=== PATIENT | female | born 1955 | race Caucasian/White ===

== ENCOUNTER → 2016-03-21 | Outpatient (CLI) | payer OTHER ==
[~2016-03-21] MED LIST: AMIT50TA3 PO; ARC10 PO; BUPR-269 PO; CEPH500C PO; CYM30 PO; DICL50TA3 PO; LEVO112T2 PO; LIOT25TA8 PO; METF1000 PO; MISO200T PO
[2016-03-27 14:26] LABS: VITAMIN B6** TC 926 15.1 ng/mL (2.1-21.7)
== END | disposition home or self-care (01) ==
LOC: C.LAB 15:19
PROVIDERS: ATTEND Psychiatry & Neurology Neurology
DX: R41.3 Other amnesia (principal)

== ENCOUNTER 2016-04-30 15:13 | Emergency (ER) | payer OTHER ==
[~2016-04-30] VITALS: Ht 170.2 cm; Wt 96.2 kg
[~2016-04-30 15:13] MED LIST changes: -ARC10 PO; -CEPH500C PO; -CYM30 PO
[2016-04-30 15:21] VITALS: TEMP 37.1; Ht 170.2 cm; Wt 96.2 kg
[2016-04-30] MEDS ORDERED: CYM30 PO (16:08)
[2016-04-30 17:05] VITALS: BP 122/88; PULSE 86; O2SAT 91
--- NOTE | 2016-05-01 01:15 | EMERGENCY ROOM VISIT NOTE ---
ED Visit Note First contact with patient: 15:59 Chief Complaint: Sore throat. History of Present Illness: Ms. Mobley is a 61-year-old white female who ambulates into the ED complaining of a sore throat. Patient reports an acute onset of throat pain that started 6 days ago. Since that time her pain has been constant and slowly increasing in intensity. She describes her pain as a combination of achy and sharp with swallowing. She rates her discomfort 8/10. Her pain is nonradiating. Her pain worsens with swallowing. She has not identified any alleviating factors related to the pain. She has not taken any medications for pain prior to arrival at the hospital. Associated with her pain she does report that she has been having low -grade fevers and bilateral ear pain. She does report that she has had 2 recent concussions and has been having some dizziness but that has not increased since her throat pain started. She denies skin eruptions, skin color changes, headache, hearing changes, vision changes, difficulty speaking, difficulty swallowing, inability to swallow , drooling, painful talking, neck pain/stiffness, cough, shortness of breath, decreased appetite, abdominal pain, nausea, vomiting. Review of Systems: As noted above in history of present illness. 8 body systems were reviewed and found to be negative as noted above. Past Medical History: (1) bowel obstruction described as a hernia into her uterus (2) Depression (3) Hypothyroidism (4) Kidney stone (5) partial left knee replacement (6) TIA (transient ischemic attack) Current Medications: Medications Dose Route/Sig Max Daily Dose Days Date Category Dose Instructions Duloxetine HCl 30 Mg Cap 30 Mg PO QAM 04/30/16 Reported Amitriptyline Hcl 50 Mg Tab 50 Mg PO HS PRN 11/22/15 Reported Cytomel (Liothyronine Sodium) 25 Mcg Tab 0.5 Tab PO HS 11/22/15 Reported Cytomel (Liothyronine Sodium) 25 Mcg Tab 1 Tab PO QAM 11/22/15 Reported Cytotec (Misoprostol) 200 Mcg Tab 200 Mcg PO TID 11/22/15 Reported WITH DICLOFENAC Voltaren (Diclofenac Sodium) 50 Mg Tabec 50 Mg PO TID 11/22/15 Reported WITH MISOPROSTOL Synthroid (Levothyroxine Sodium) 112 Mcg Tab 1 Tab PO QAM 02/01/15 Reported Bupropion Hcl Sr (Bupropion HCl) 200 Mg Tab 200 Mg PO BID 07/19/12 Reported Glucophage (Metformin Hcl) 1,000 Mg Tab 1,000 Mg PO BID 07/19/12 Reported Allergies to Medications: Doxycycline, amantadine. Social History: Patient is currently retired; she lives with her and feels safe in her home environment; she denies tobacco use and admits to alcohol use. Physical Examination: Vital Signs: Date Time Temp Pulse Resp B/P Pulse Ox O2 Delivery O2 Flow Rate FiO2 04/30/16 17:05 86 16 122/88 91 04/30/16 16:53 86 16 122/88 91 04/30/16 15:21 37.1 94 20 125/84 92 Room Air GENERAL: 61-year-old female in mild distress due to pain, nontoxic-appearing, afebrile and hemodynamically stable. NEUROLOGICAL: Awake, alert and oriented to person, place and time. Answering questions appropriately and following commands. Normal gait. Good hand eye coordination. SKIN: Warm, dry and pink. No soft tissue eruptions or trauma noted. HEENT: Atraumatic and normocephalic. No tenderness or erythema over the frontal or maxillary sinuses. No external ear pain. Auditory canals are pink and patent. Tympanic membranes were pearly wells with normal light reflex. No tenderness or swelling over the mastoid processes. PERRLA. Sclera white and conjunctiva pink without drainage. No drainage from naris without congestion. Oral cavity moist and pink. Airway patent. Uvula midline and no abscesses are seen. Pharynx is moderately erythematous and mildly edematous. No tonsillar hypertrophy or exudates. Speech normal. No cervical lymphadenopathy. Trachea midline. No jugular venous distention. No laryngeal tenderness. BACK: No tenderness over the bony cervical spine. No nuchal rigidity or meningismus. ED Course: Patient is assessed as noted above. Rapid Strep Screen: Negative. Culture pending. Patient was offered pain medications and refused. Patient was educated about tonight's findings and instructed on her treatment plan; she verbalizes understanding and agreement with this plan. Clinical Impression: Acute pharyngitis. Disposition: Patient discharged home in stable condition; prior to departure she was reassessed and subjectively reported she was feeling better and rated her discomfort 4/10. Plan: Patient was encouraged to alternate ibuprofen and acetaminophen as needed for pain and use salt water gargles 4-5 times a day. Patient was encouraged to stay well-hydrated with increased clear fluids. Patient was encouraged to follow-up with family physician for recheck if no better in 4-5 days. Patient was encouraged return ED for worsening pain, worsening fevers, inability to swallow, painful talking, drooling or any new/concerning symptoms.
== END 2016-04-30 17:01 | disposition home or self-care (01) ==
LOC: C.EDB 15:14 → C.EDD 17:01
DX: J02.9 Acute pharyngitis, unspecified (principal); F32.9 Major depressive disorder, single episode, unspecified; E03.9 Hypothyroidism, unspecified; Z86.73 Personal history of transient ischemic attack (TIA), and cerebral infarction without residual deficits

== ENCOUNTER 2016-05-16 12:23 | Emergency (ER) | payer OTHER ==
[~2016-05-16] VITALS: Ht 172.7 cm; Wt 97.3 kg
[~2016-05-16 12:23] MED LIST changes: -CEPH500C PO
[2016-05-16 12:36] VITALS: BP 153/79; PULSE 86; TEMP 37.4; Ht 172.7 cm; Wt 97.3 kg
[2016-05-16 12:39] VITALS: O2SAT 94
--- NOTE | 2016-05-16 13:03 | EMERGENCY ROOM VISIT NOTE ---
History First contact with patient: 12:47 Chief Complaint: SORETHROAT Stated Complaint: PAIN IN BACK OF MOUTH History of Present Illness The patient is a 61 year old female who presents to the Emergency Room with complaints of pain at the base of the left side of the tongue. She states she noticed some burning in the back of the throat which is not atypical for her. She states that it got worse this morning. She states she has pain at the back of the left lower molar. She states the pain radiates to the jaw and up to the ear. She rates her discomfort a 4/10. She denies any fevers or chills. She denies any discharge. She denies any difficulty breathing. She denies any swelling. She denies any history of similar. Review of Systems A 10 system review of systems was completed with positives and pertinent negatives listed in the HPI. Past Medical/Surgical History Medical Problems: (1) bowel obstruction described as a hernia into her uterus (2) Depression (3) Hypothyroidism (4) Kidney stone (5) partial left knee replacement (6) TIA (transient ischemic attack) Family History No pertinent family history Social History Smoking Status: Former Smoker Alcohol Use: occasionally Marital Status: Housing Status: lives with significant other Occupation Status: employed Current/Historical Medications Scheduled Bupropion Hcl Sr (Bupropion Hcl Sr), 200 MG PO BID Diclofenac (Voltaren), 50 MG PO TID Duloxetine HCl (Duloxetine HCl), 30 MG PO QAM Levothyroxine Sodium (Synthroid), 112 MCG PO QAM Liothyronine Sodium (Cytomel), 25 MCG PO QAM Metformin Hcl (Glucophage), 1,000 MG PO BID Misoprostol (Cytotec), 200 MCG PO TID Scheduled PRN Amitriptyline Hcl (Amitriptyline Hcl), 50 MG PO HS PRN for Sleep Allergies Coded Allergies: Amantadine (Verified Allergy, Unknown, GI UPSET, 05/16/16) Doxycycline (Verified Allergy, Unknown, GI UPSET, 05/16/16) Physical Exam Vital Signs Date Time Temp Pulse Resp B/P Pulse Ox O2 Delivery O2 Flow Rate FiO2 05/16/16 12:39 94 Room Air 05/16/16 12:36 37.4 86 17 153/79 94 Room Air Physical Exam VITALS: Vitals are noted on the nurse's note and reviewed by myself. Vital signs stable. GENERAL: This is a 61-year-old female, in no acute distress, nondiaphoretic, well-developed well-nourished. SKIN: The skin was without rashes, erythema, edema, or bruising. There is no tenting of the skin. Capillary reflex less than 2 seconds. HEAD: Normocephalic atraumatic. EARS: External auditory canals clear, tympanic membranes pearly wells without erythema or effusion bilaterally. EYES: Pupils equal round and reactive to light and accommodation. Conjunctivae without injection, sclerae without icterus. Extraocular movements intact. NOSE: Patent, turbinates without inflammation or discharge. No sinus tenderness. MOUTH: Mucous membranes moist. Tonsils are not enlarged. Pharynx without erythema or exudate. Uvula midline. Airway patent. Tongue does not deviate. There is a dark area noted to the left buccal mucosa which may represent an area of trauma. There is no obvious sialoadenitis or sialolithiasis. She does not have any facial swelling. There is no tenderness to palpation of the teeth. There is a small area of ulceration just posterior to the left lower gum at the most posterior aspect near the base of the tongue. There is no swelling beneath the tongue. NECK: Supple without nuchal rigidity. No lymphadenopathy. No thyromegaly. Cervical spine is nontender. No JVD. HEART: Regular rate and rhythm without murmurs gallops or rubs. LUNGS: Clear to auscultation bilaterally without wheezes, rales or rhonchi. No dullness to percussion. No retractions or accessory muscle use. MUSCULOSKELETAL: No muscle atrophy, erythema, or edema noted. Full range of motion without joint tenderness in all extremities. No tenderness to palpation. Normal gait. Strength 5/5 throughout. NEURO: Patient was alert and oriented to person place and time. No focal neurological deficits. Medical Decision & Procedures ED Course The patient was seen and examined. Previous visits were reviewed. The patient reports pain in the left mandible near the base of the tongue. She does not have any swelling. There is no obvious abscess. There is no drainage. There is no swelling beneath the tongue. There is a small dark area to the cheek that may be from biting her cheek. There is a small ulcerated area at the base of the tongue. I do not see any obvious infectious process. She does not have any swelling beneath the tongue to suggest Jas's angina. She does not appear to have an ear infection. Sialadenitis or sialolithiasis are considered. The patient does not have any swelling or significant pain. I offered to try antibiotics in the event that this could represent early dental infection. The patient declines. She declined pain medication. The patient seemed fairly anxious. She repeatedly stated that she would just start drinking alcohol again. I recommended against treating symptoms with alcohol. She should return to the ER if any worsening symptoms. Medical Decision The differential diagnosis includes sialolithiasis, sialadenitis, dental infection, dental abscess, viral infection, trauma, among others Impression Primary Impression: Mouth pain Departure Information Dispostion Home / Self-Care Condition GOOD Referrals Yusef Land III, CRNP (PCP) Patient Instructions My [facility] Additional Instructions Try eating sour items such as lemon drops in the event that you are developing a blocked saliva duct Tylenol or ibuprofen according to package instructions for discomfort Return with any swelling, fevers, drainage, rash or change in symptoms Otherwise, follow up with your family doctor next week
== END 2016-05-16 13:05 | disposition home or self-care (01) ==
LOC: C.EDB 12:27 → C.EDD 13:05
DX: K13.79 Other lesions of oral mucosa (principal); E03.9 Hypothyroidism, unspecified; Z86.73 Personal history of transient ischemic attack (TIA), and cerebral infarction without residual deficits; Z96.652 Presence of left artificial knee joint

== ENCOUNTER → 2016-05-16 | Outpatient (CLI) | payer OTHER ==
[~2016-05-16] MED LIST changes: +CEPH500C PO; +CYM30 PO
[2016-05-16 13:20] LABS: CHOLESTEROL/HDL RATIO 3.9
[2016-05-16 13:26] LABS: THYROID STIMULATING HORMONE 0.057 uIu/ml (0.300-4.500)
== END | disposition home or self-care (01) ==
LOC: C.LAB 12:07
PROVIDERS: ATTEND Nurse Practitioner Family
DX: E03.9 Hypothyroidism, unspecified (principal); E88.81 Metabolic syndrome and other insulin resistance

== ENCOUNTER → 2016-07-04 | Outpatient (CLI) | payer OTHER ==
[~2016-07-04] MED LIST changes: +ARC10 PO; +CEPH500C PO
[2016-07-04 10:56] LABS: THYROID STIMULATING HORMONE 0.082 uIu/ml (0.300-4.500)
[2016-07-06 13:26] LABS: ALBUMIN 4.4 G/DL (3.8-4.8); GAMMA GLOBULIN 0.6 G/DL (0.8-1.7); IMMUNOFIXATION IGA SERUM 234 MG/DL (81-463); IMMUNOFIXATION IGG SERUM 673 MG/DL (694-1618); IMMUNOFIXATION IGM SERUM 63 MG/DL (48-271); METHYLMALONIC ACID 206 NMOL/L (87-318); MICROSOMAL AB 4 IU/ML (<9)
== END | disposition home or self-care (01) ==
LOC: C.LAB 09:00
PROVIDERS: ATTEND Psychiatry & Neurology Neurology
DX: R20.9 Unspecified disturbances of skin sensation (principal); R41.89 Other symptoms and signs involving cognitive functions and awareness; E03.9 Hypothyroidism, unspecified

== ENCOUNTER → 2016-07-09 | Outpatient (CLI) | payer OTHER ==
--- NOTE | 2016-07-10 10:31 | EEG Procedure Note ---
EEG Procedure Note Date of Service Jul 09, 2016. Start / End Times Start Time: 1:54 PM End Time: 2:14 PM Referring Physician Meka Lema History This is a 61-year-old female with cognitive impairment. EEG for further evaluation of cognitive changes. Home Medication List Scheduled Bupropion Hcl Sr (Bupropion Hcl Sr), 200 MG PO BID Diclofenac (Voltaren), 50 MG PO TID Duloxetine HCl (Duloxetine HCl), 30 MG PO QAM Levothyroxine Sodium (Synthroid), 112 MCG PO QAM Liothyronine Sodium (Cytomel), 25 MCG PO QAM Metformin Hcl (Glucophage), 1,000 MG PO BID Misoprostol (Cytotec), 200 MCG PO TID Scheduled PRN Amitriptyline Hcl (Amitriptyline Hcl), 50 MG PO HS PRN for Sleep Description This is a 21 electrode EEG with a single channel dedicated to limited EKG. The electrodes were placed in accordance with the International 10-20 system. At the start of the recording the patient was in an awake state. Background was well organized and composed of symmetric mixed theta/alpha and beta frequencies. There was occasional generalized intermittent theta slowing. There was a symmetric well-formed moderate amplitude 7-8 Hz posterior dominant rhythm that was reactive to eye opening and closure. Hyperventilation was not done. Intermittent photic stimulation at various frequencies produced no abnormalities. There was no clear state changes or sleep transients. Interpretation This is a abnormal routine EEG secondary to mild background slowing. There was no electrographic seizures or epileptiform discharges. Clinical Correlation This EEG indicates a mild encephalopathy of nonspecific etiology.
== END | disposition home or self-care (01) ==
LOC: C.NEUR 13:20
PROVIDERS: ATTEND Psychiatry & Neurology Neurology
DX: R41.89 Other symptoms and signs involving cognitive functions and awareness (principal); R94.01 Abnormal electroencephalogram [EEG]

== ENCOUNTER → 2016-07-12 | Outpatient (CLI) | payer OTHER ==
[2016-07-12 13:21] LABS: BASO % 0.5 %; BASO ABS # 0.04 K/uL (0-0.2); COMPLETE YES; EOS % 2.5 %; HEMATOCRIT 38.6 % (37-47); IG% 0.5 %; LYMPH % 27.3 %; LYMPH ABS # 2.32 K/uL (1.2-3.4); MEAN CELL VOLUME 83.9 fL (80-100); MEAN CORPUSCULAR HEMOGLOBIN 26.5 pg (25-34); MEAN CORPUSCULAR HGB CONC 31.6 g/dl (32-36); MEAN PLATELET VOLUME 9.7 fL (7.4-10.4); MONO % 10.2 %; PLATELET COUNT 320 K/uL (130-400); WHITE BLOOD COUNT 8.51 K/uL (4.8-10.8)
[2016-07-12 14:10] LABS: AST/SGOT 52 U/L (15-37); BLOOD UREA NITROGEN 15 mg/dl (7-18); BUN/CREATININE RATIO 13.7 (10-20); CALCIUM 9.3 mg/dl (8.5-10.1); CARBON DIOXIDE 26 mmol/L (21-32); CHLORIDE 107 mmol/L (98-107); GLUCOSE 95 mg/dl (70-99); POTASSIUM 4.4 mmol/L (3.5-5.1); SODIUM 139 mmol/L (136-145)
[2016-07-12 14:13] LABS: ALB/GLOB RATIO 1.2 (0.9-2); ALKALINE PHOSPHATASE 88 U/L (45-117); ALT/SGPT 103 U/L (12-78)
[2016-07-12 14:46] LABS: LYME DISEASE AB IGG NEG (NEG)
[2016-07-12 14:51] LABS: LYME DISEASE AB IGM NEG (NEG)
== END | disposition home or self-care (01) ==
LOC: C.LAB1850 12:31
PROVIDERS: ATTEND Nurse Practitioner Family
DX: R41.3 Other amnesia (principal); F99 Mental disorder, not otherwise specified

== ENCOUNTER 2016-09-13 13:59 | Emergency (ER) | payer OTHER ==
[~2016-09-13] VITALS: Ht 165.1 cm; Wt 99.2 kg
[~2016-09-13 13:59] MED LIST changes: -ARC10 PO; -CEPH500C PO
[2016-09-13 14:04] VITALS: TEMP 37; Ht 165.1 cm; Wt 99.2 kg
--- NOTE | 2016-09-13 14:23 | EMERGENCY ROOM VISIT NOTE ---
History First contact with patient: 14:09 Chief Complaint: LEG PAIN,LEG INJURY Stated Complaint: ANKLE HEMATOMA, CALF SWELLING-FROM IMPACT 10/07/16 History of Present Illness The patient is a 61 year old female who presents to the Emergency Room with complaints of right leg pain and swelling. The patient states that 5 days ago she was on a zip line. She states that she did not have her legs up high enough at the end and struck her right anterior lower extremity on the rubber platform. She states that there is an abrasion that bled. She states that she did not have any significant pain at that time. She states that she was able to perform her normal activities. She states that today she noticed bruising in the foot and ankle. She denies any pain or injury to the foot or ankle. She denies any fevers. She rates her discomfort a 4/10. The patient denies any pain in her chest or trouble breathing. She denies any abdominal pain, nausea or vomiting. The patient denies any personal or family history of DVT or PE. The patient did travel back and forth to [place] over the weekend. Review of Systems A 10 system review of systems was completed with positives and pertinent negatives listed in the HPI. Past Medical/Surgical History Medical Problems: (1) bowel obstruction described as a hernia into her uterus (2) Depression (3) Hypothyroidism (4) Kidney stone (5) partial left knee replacement (6) TIA (transient ischemic attack) Family History No pertinent family history Social History Smoking Status: Former Smoker Alcohol Use: occasionally Marital Status: Housing Status: lives with significant other Occupation Status: employed Current/Historical Medications Scheduled Bupropion Hcl Sr (Bupropion Hcl Sr), 200 MG PO BID Cephalexin Monohydrate (Keflex), 500 MG PO TID Diclofenac (Voltaren), 50 MG PO TID Duloxetine HCl (Duloxetine HCl), 30 MG PO QAM Levothyroxine Sodium (Synthroid), 112 MCG PO QAM Liothyronine Sodium (Cytomel), 25 MCG PO QAM Metformin Hcl (Glucophage), 1,000 MG PO BID Misoprostol (Cytotec), 200 MCG PO TID Scheduled PRN Amitriptyline Hcl (Amitriptyline Hcl), 50 MG PO HS PRN for Sleep Allergies Coded Allergies: Amantadine (Verified Allergy, Unknown, GI UPSET, 09/13/16) Doxycycline (Verified Allergy, Unknown, GI UPSET, 09/13/16) Physical Exam Vital Signs Date Time Temp Pulse Resp B/P (MAP) Pulse Ox O2 Delivery O2 Flow Rate FiO2 09/13/16 15:41 76 16 143/93 94 09/13/16 14:04 37.0 89 18 138/86 96 Room Air Physical Exam VITALS: Vitals are noted on the nurse's note and reviewed by myself. Vital signs stable. The patient is afebrile. GENERAL: This is a 61-year-old female, in no acute distress, nondiaphoretic, well-developed well-nourished. SKIN: There is a superficial, healing abrasion to the right anterior lower extremity. There is minimal surrounding erythema and warmth. There is ecchymosis and edema noted over the ankle and foot. There is no lymphangitic streaking. There is no fluctuance. There is no tenting of the skin. Capillary reflex less than 2 seconds. HEAD: Normocephalic atraumatic. EARS: External auditory canals clear, tympanic membranes pearly wells without erythema or effusion bilaterally. EYES: Pupils equal round and reactive to light and accommodation. Conjunctivae without injection, sclerae without icterus. Extraocular movements intact. NOSE: Patent, turbinates without inflammation or discharge. MOUTH: Mucous membranes moist. Tonsils are not enlarged. Pharynx without erythema or exudate. Uvula midline. Airway patent. Tongue does not deviate. NECK: Supple without nuchal rigidity. No lymphadenopathy. No thyromegaly. Cervical spine is nontender. No JVD. HEART: Regular rate and rhythm without murmurs gallops or rubs. LUNGS: Clear to auscultation bilaterally without wheezes, rales or rhonchi. No retractions or accessory muscle use. MUSCULOSKELETAL: There is no tenderness to palpation of the right calf. There are no palpable cords. There is a superficial healing abrasion as above. There is minimal surrounding erythema but no fluctuance and no lymphangitic streaking. There is ecchymosis and edema noted over the ankle and foot. There is no tenderness to palpation of the ankle and foot. There is no pain with movement or tenderness to the knee. The patient has full range of motion of the upper and lower extremities bilaterally. The remaining extremities are unremarkable. NEURO: Patient was alert and oriented to person place and time. No focal neurological deficits. Medical Decision & Procedures ER Provider Diagnostic Interpretation: ULTRASOUND RIGHT LOWER EXTREMITY NONVASCULAR CLINICAL HISTORY: Right leg swelling. Clinical concern for hematoma. COMPARISON STUDY: No priors. FINDINGS: Real-time, grayscale, and color flow sonography of the soft tissues in the anterior distal calf is performed at the indicated site of interest. Mild soft tissue edema is suggested this site. There is no organized fluid collection seen to suggest hematoma as clinically queried. IMPRESSION: Mild soft tissue edema with no organized fluid collection to indicate hematoma as clinically queried. [~ rep ct add3]] Venous Doppler right leg RIGHT VENOUS DOPP LOWER EXT UNILAT CLINICAL HISTORY: right leg pain, swelling Right TECHNIQUE: Venous Doppler COMPARISON STUDY: None FINDINGS: Normal study IMPRESSION: Normal study right leg ] RIGHT TIBIA/FIBULAR 2 VIEWS HISTORY: right leg contusion, pain, swelling Right COMPARISON: None. FINDINGS: There is no fracture or dislocation. Plantar heel spur. Mild subcutaneous edema within the distal lower leg. There is a medial unicondylar knee prosthesis. IMPRESSION: No fractures. ED Course The patient was seen and examined. Previous visits were reviewed. The patient is afebrile. X-rays do not reveal any bony abnormality. Ultrasound was negative for DVT. There is no evidence for fluid collection at the site of hematoma. The patient will be placed on Keflex as there may be a mild cellulitis beginning at the area of abrasion. The patient does have a moderate hematoma that seems to be healing. She does have some bruising and swelling noted in the foot and ankle. I discussed this at length with the patient and advised her that it is common with a deep bruise as gravity is involved and pulls the blood into lower extremity has a heals. She ate knowledge his understanding. She should return to the ER with any worsening symptoms. The case was discussed with Dr. Harper who agrees with the assessment and treatment plan. Medical Decision The differential diagnosis includes fracture, abrasion, cellulitis, DVT, superficial, phlebitis, among others Impression Primary Impression: Hematoma of leg Additional Impression: Cellulitis, leg Departure Information Dispostion Home / Self-Care Condition GOOD Prescriptions Cephalexin Monohydrate (Keflex) 500 Mg Cap 500 MG PO TID for 7 Days, #21 CAP Prov: Haydee Livingston PA-C 09/13/16 Referrals Yusef Land III, CRNP (PCP) Patient Instructions Cellulitis - [facility], ED Hematoma, My [facility] Additional Instructions Keflex as prescribed, until finished to help treat infection Rest, ice and elevation over the next several days Follow up with your family doctor in 5-7 days if no improvement Return with any worsening swelling, chest pain, trouble breathing , fever, worsening redness, or generalized worsening symptoms Problem Qualifiers Primary Impression: Hematoma of leg Encounter type: initial encounter Laterality: right Qualified Codes: S80.11XA - Contusion of right lower leg, initial encounter Additional Impression: Cellulitis, leg Laterality: right Qualified Codes: L03.115 - Cellulitis of right lower limb
--- NOTE | 2016-09-13 14:57 | DIAGNOSTIC IMAGING REPORT ---
RIGHT TIBIA/FIBULAR 2 VIEWS HISTORY: right leg contusion, pain, swelling Right COMPARISON: None. FINDINGS: There is no fracture or dislocation. Plantar heel spur. Mild subcutaneous edema within the distal lower leg. There is a medial unicondylar knee prosthesis. IMPRESSION: No fractures. Electronically signed by: Manuelito Baum M.D. 09/13/2016 2:56 PM Dictated Date/Time: 09/13/2016 2:54 PM
--- NOTE | 2016-09-13 15:06 | DIAGNOSTIC IMAGING REPORT ---
Venous Doppler right leg RIGHT VENOUS DOPP LOWER EXT UNILAT CLINICAL HISTORY: right leg pain, swelling Right TECHNIQUE: Venous Doppler COMPARISON STUDY: None FINDINGS: Normal study IMPRESSION: Normal study right leg Electronically signed by: Mannie Villar M.D. 09/13/2016 3:04 PM Dictated Date/Time: 09/13/2016 3:04 PM
--- NOTE | 2016-09-13 15:13 | DIAGNOSTIC IMAGING REPORT ---
ULTRASOUND RIGHT LOWER EXTREMITY NONVASCULAR CLINICAL HISTORY: Right leg swelling. Clinical concern for hematoma. COMPARISON STUDY: No priors. FINDINGS: Real-time, grayscale, and color flow sonography of the soft tissues in the anterior distal calf is performed at the indicated site of interest. Mild soft tissue edema is suggested this site. There is no organized fluid collection seen to suggest hematoma as clinically queried. IMPRESSION: Mild soft tissue edema with no organized fluid collection to indicate hematoma as clinically queried. Electronically signed by: Juan Carlos Alonzo M.D. 09/13/2016 3:11 PM Dictated Date/Time: 09/13/2016 3:05 PM
[2016-09-13] MEDS ORDERED: CEPH500C PO (15:25)
[2016-09-13 15:41] VITALS: BP 143/93; PULSE 76; O2SAT 94
== END 2016-09-13 15:42 | disposition home or self-care (01) ==
LOC: C.EDB 14:03 → C.EDC 15:42
DX: S80.11XA Contusion of right lower leg, initial encounter (principal); L03.115 Cellulitis of right lower limb; X58.XXXA Exposure to other specified factors, initial encounter; E03.9 Hypothyroidism, unspecified; F32.9 Major depressive disorder, single episode, unspecified; Z87.891 Personal history of nicotine dependence

== ENCOUNTER → 2016-11-28 | Outpatient (CLI) | payer OTHER ==
[~2016-11-28] MED LIST changes: +ARC10 PO
== END | disposition home or self-care (01) ==
LOC: C.PATHSPEC 16:59
PROVIDERS: ATTEND Dermatology
DX: L82.1 Other seborrheic keratosis (principal)

== ENCOUNTER 2016-12-24 14:17 | Emergency (ER) | payer OTHER ==
[~2016-12-24] VITALS: Ht 175.3 cm; Wt 100.7 kg
[~2016-12-24 14:17] MED LIST changes: -ARC10 PO
[2016-12-24 14:21] VITALS: TEMP 37.1; Ht 175.3 cm; Wt 100.7 kg
[2016-12-24 16:16] LABS: BASO % 0.6 %; BASO ABS # 0.05 K/uL (0-0.2); COMPLETE YES; EOS % 2.4 %; HEMATOCRIT 38.6 % (37-47); IG% 0.4 %; LYMPH ABS # 2.72 K/uL (1.2-3.4); MEAN CELL VOLUME 82.1 fL (80-100); MEAN CORPUSCULAR HEMOGLOBIN 25.7 pg (25-34); MEAN CORPUSCULAR HGB CONC 31.3 g/dl (32-36); MEAN PLATELET VOLUME 9.4 fL (7.4-10.4); MONO % 8.4 %; NEUT % 54.2 %; PLATELET COUNT 285 K/uL (130-400); WHITE BLOOD COUNT 7.99 K/uL (4.8-10.8)
--- NOTE | 2016-12-24 16:26 | DIAGNOSTIC IMAGING REPORT ---
R FOOT MIN 3 VIEWS ROUTINE CLINICAL HISTORY: 61 years-old Female presenting with R foot pain and swelling; attn: great toe. TECHNIQUE: Frontal, oblique, and lateral views of the right foot were obtained. COMPARISON: None. FINDINGS: Osteopenia suspected. Minimal degenerative changes noted at the first metatarsophalangeal joint. No acute fracture or malalignment. Accessory navicular noted. Prominent enthesophyte at the origin of the plantar fascia. No radiographic evidence of soft tissue abnormality. IMPRESSION: No acute osseous injury of the right foot. Mild degenerative change at the first MTP. Electronically signed by: Rodriguez Caldwell M.D. 12/24/2016 4:25 PM Dictated Date/Time: 12/24/2016 4:24 PM
[2016-12-24] MEDS ORDERED: ARC10 PO (16:31)
[2016-12-24 16:34] LABS: PROTHROMBIN TIME (PATIENT) 10.7 SECONDS (9.0-12.0)
[2016-12-24 16:36] LABS: BUN/CREATININE RATIO 13.6 (10-20); C-REACTIVE PROTEIN 0.83 mg/dl (0-0.29); CALCIUM 9.7 mg/dl (8.5-10.1); CREATININE 0.8 mg/dl (0.60-1.20); POTASSIUM 4.4 mmol/L (3.5-5.1); URIC ACID 4.9 mg/dl (2.6-7.2)
--- NOTE | 2016-12-24 17:34 | DIAGNOSTIC IMAGING REPORT ---
VENOUS DOPP LOWER EXT UNILAT CLINICAL HISTORY: 61 years-old Female presenting with R lower leg and foot swelling. TECHNIQUE: Real-time grayscale and color and spectral Doppler ultrasound imaging of the veins of the right lower extremity was performed. Compression and augmentation were also utilized. COMPARISON: 09/13/2016.. FINDINGS: Right: Common femoral vein: Patent. Femoral vein: Patent. Greater saphenous vein: Patent. Popliteal vein: Patent. Calf veins: Patent. Other: None. IMPRESSION: No evidence of deep venous thrombosis. Electronically signed by: Rodriguez Caldwell M.D. 12/24/2016 5:33 PM Dictated Date/Time: 12/24/2016 5:32 PM
[2016-12-24 18:17] VITALS: BP 148/97; PULSE 83; O2SAT 96
--- NOTE | 2016-12-25 00:52 | EMERGENCY ROOM VISIT NOTE ---
ED Visit Note First contact with patient: 15:43 Chief Complaint: I've been having swelling of my right great toe and fevers. History of Present Illness: Ms. Mobley is a 61-year-old white female who ambulates into the ED complaining of pain and swelling of the right great toe and low-grade fevers. Historically patient was seen in the emergency department on September 13 after injuring her right lower leg prescription lining. At that time an ultrasound and x-ray was performed and she was found to have a contusion. She was followed up at her affirmative action specialist's office and reports an x-ray of the great toe was performed for continued pain and no fractures were identified. Patient reports she continues tab pain and swelling of the great toe. She reports throughout the day she has noted increasing pain and swelling with her physical activity. After going to bed and waking up in the morning most of this is resolved. She reports initially it was mild but it seems to be getting more intense. Currently she describes her pain as a constant achy sensation at the first MCP joint of the right foot. She currently rates her discomfort 4/10 but does report at times its as bad as 7/10. Intermittently she has radiation distally into the distal phalanx of the great toe and sometimes into the proximal first metacarpal. Ambulation on uneven services and palpation increases her discomfort. Rest decreases her discomfort as well as Aleve. Associated with her discomfort she reports she has been having mild low-grade temperatures this week with eye as being 99.8F. She denies skin eruptions, skin color changes, toe weakness/numbness/tingling. Review of Systems: As noted above in history of present illness. Past Medical History: (1) bowel obstruction described as a hernia into her uterus (2) Depression (3) Hypothyroidism (4) Kidney stone (5) partial left knee replacement (6) TIA (transient ischemic attack) Current Medications: Medications Dose Route/Sig Max Daily Dose Days Date Category Dose Instructions Donepezil HCl 10 Mg Tab 10 Mg PO HS 12/24/16 Reported Duloxetine HCl 30 Mg Cap 30 Mg PO QAM 04/30/16 Reported Amitriptyline Hcl 50 Mg Tab 50 Mg PO HS PRN 11/22/15 Reported Cytomel (Liothyronine Sodium) 25 Mcg Tab 25 Mcg PO QAM 11/22/15 Reported Cytotec (Misoprostol) 200 Mcg Tab 200 Mcg PO TID 11/22/15 Reported WITH DICLOFENAC Voltaren (Diclofenac Sodium) 50 Mg Tabec 50 Mg PO TID 11/22/15 Reported WITH MISOPROSTOL Synthroid (Levothyroxine Sodium) 112 Mcg Tab 112 Mcg PO QAM 02/01/15 Reported Bupropion Hcl Sr (Bupropion HCl) 200 Mg Tab 200 Mg PO BID 07/19/12 Reported Glucophage (Metformin Hcl) 1,000 Mg Tab 1,000 Mg PO BID 07/19/12 Reported Allergies to Medications: Amantadine, Doxycycline. Social History: Patient is unemployed; she was there and feels safe in her home environment; she admits tobacco use and denies alcohol use. Physical Examination: Vital Signs: Date Time Temp Pulse Resp B/P (MAP) Pulse Ox O2 Delivery O2 Flow Rate FiO2 12/24/16 18:17 83 16 148/97 96 12/24/16 16:23 87 16 150/92 97 12/24/16 14:21 37.1 88 20 94 Room Air GENERAL: 61-year-old female in mild distress due to pain, nontoxic-appearing, afebrile and hemodynamically stable. NEUROLOGICAL: Awake, alert and oriented to person, place and time. Answering questions appropriately and following commands. Normal gait. Good hand eye coordination. No focal motor sensory deficits. SKIN: Warm, dry and pink. No soft tissue eruptions or trauma noted. THORAX: Lungs sounds are clear to auscultation and equal bilaterally with symmetrical chest wall. HEART: Regular rate and rhythm. No gallops, rubs or murmurs are appreciated. ABDOMEN: Flat, soft and nontender. Positive bowel sounds in all quadrants. No guarding, rigidity or organomegaly. RIGHT LOWER EXTREMITY: No gross bony deformity. No tenderness in the hip and ankle. Mild tenderness over the first MTP joint and the proximal portion of the distal phalanx of the great toe. There is a very mild amount of erythema over this area but it is not hot and there is no red streaking. There is also a very male mild edema. No calf tenderness or cords although the anterior aspect of the tibia/fibula appears slightly larger than the left. Distal pulses are intact. Capillary refill is brisk. She is able to distinguish light sensations through all dermatomes of the foot. ED Course: Patient is assessed as noted above. Patient's medication list was reviewed. Laboratory Testing: Test 12/24/16 16:02 Range/Units White Blood Count 7.99 4.8-10.8 K/uL Red Blood Count 4.70 4.2-5.4 M/uL Hemoglobin 12.1 12.0-16.0 g/dL Hematocrit 38.6 37-47 % Mean Corpuscular Volume 82.1 80-100 fL Mean Corpuscular Hemoglobin 25.7 25-34 pg Mean Corpuscular Hemoglobin Concent 31.3 32-36 g/dl Platelet Count 285 130-400 K/uL Mean Platelet Volume 9.4 7.4-10.4 fL Neutrophils (%) (Auto) 54.2 % Lymphocytes (%) (Auto) 34.0 % Monocytes (%) (Auto) 8.4 % Eosinophils (%) (Auto) 2.4 % Basophils (%) (Auto) 0.6 % Neutrophils # (Auto) 4.33 1.4-6.5 K/uL Lymphocytes # (Auto) 2.72 1.2-3.4 K/uL Monocytes # (Auto) 0.67 0.11-0.59 K/uL Eosinophils # (Auto) 0.19 0-0.5 K/uL Basophils # (Auto) 0.05 0-0.2 K/uL RDW Standard Deviation 47.7 36.4-46.3 fL RDW Coefficient of Variation 15.9 11.5-14.5 % Immature Granulocyte % (Auto) 0.4 % Immature Granulocyte # (Auto) 0.03 0.00-0.02 K/uL Erythrocyte Sedimentation Rate 16 0-21 mm/hr Prothrombin Time 10.7 9.0-12.0 SECONDS Prothromb Time International Ratio 1.0 0.9-1.1 Activated Partial Thromboplast Time 26.1 21.0-31.0 SECONDS Partial Thromboplastin Ratio 1.0 Sodium Level 139 136-145 mmol/L Potassium Level 4.4 3.5-5.1 mmol/L Chloride Level 106 98-107 mmol/L Carbon Dioxide Level 25 21-32 mmol/L Anion Gap 8.0 3-11 mmol/L Blood Urea Nitrogen 11 7-18 mg/dl Creatinine 0.80 0.60-1.20 mg/dl Est Creatinine Clear Calc Drug Dose 90.9 ml/min Estimated GFR () 90.9 Estimated GFR (Non- 78.5 BUN/Creatinine Ratio 13.6 10-20 Random Glucose 104 70-99 mg/dl Uric Acid 4.9 2.6-7.2 mg/dl Calcium Level 9.7 8.5-10.1 mg/dl C-Reactive Protein 0.83 0-0.29 mg/dl Right Foot X-Rays: Were read by myself and the radiologist and shows no acute fractures or dislocations. Radiologist notes mild degenerative changes at the first MTP joint. Right Lower Extremity Venous Doppler Ultrasound: Was reviewed by myself and read by the radiologist showing no evidence of deep vein thrombus. Patient was offered pain medications and refused. Patient was reassessed multiple times during her stay in the emergency department. Patient's case was reviewed with Dr. Loredo; we agreed on diagnostic approach, treatment, disposition and plan. Patient was given a postop shoe; she was offered crutches and/or walker and reported she had these at home. Patient was educated about today's findings and instructed on her treatment plan ; she verbalizes understanding and agreement with this plan. Clinical Impression: Right great toe pain. Decision-Making: Initially my differential diagnosis I considered fracture, dislocation, sprain, gout, joint infection, DVT and other causes. Disposition: Patient discharged home in stable condition; prior to departure she was reassessed and subjectively reported she was pain-free. Plan: Patient was encouraged to continue her current medications as prescribed. Patient was encouraged to use one to 2 tablets of Aleve every 12 hours as needed for pain. Patient was encouraged to keep her foot elevated at rest. Patient was encouraged use postop shoe and walker for 3-6 days or until pain free. Patient is encouraged follow-up with affirmative action specialist for definitive care and treatment. Patient was encouraged return ED for worsening/uncontrolled pain, uncontrolled swelling, foot weakness/numbness/tingling or any new/concerning symptoms.
== END 2016-12-24 18:18 | disposition home or self-care (01) ==
LOC: C.EDB 14:18 → C.EDA 18:18
DX: M79.674 Pain in right toe(s) (principal); R60.0 Localized edema; R50.9 Fever, unspecified; F32.9 Major depressive disorder, single episode, unspecified; E03.9 Hypothyroidism, unspecified; F17.200 Nicotine dependence, unspecified, uncomplicated; Z96.652 Presence of left artificial knee joint; Z87.442 Personal history of urinary calculi; Z86.73 Personal history of transient ischemic attack (TIA), and cerebral infarction without residual deficits

== ENCOUNTER → 2017-03-22 | Outpatient (CLI) | payer OTHER ==
[~2017-03-22] MED LIST changes: +ARC10 PO
[2017-03-22 13:14] LABS: BASO % 0.5 %; BASO ABS # 0.04 K/uL (0-0.2); EOS % 2.5 %; HEMATOCRIT 39.5 % (37-47); HEMOGLOBIN 12.5 g/dL (12.0-16.0); IG# 0.03 K/uL (0.00-0.02); LYMPH % 31.7 %; LYMPH ABS # 2.55 K/uL (1.2-3.4); MEAN CELL VOLUME 83.3 fL (80-100); MEAN CORPUSCULAR HEMOGLOBIN 26.4 pg (25-34); MEAN CORPUSCULAR HGB CONC 31.6 g/dl (32-36); MEAN PLATELET VOLUME 10.2 fL (7.4-10.4); MONO ABS # 0.72 K/uL (0.11-0.59); NEUT % 55.9 %; PLATELET COUNT 277 K/uL (130-400); RED CELL DISTRIBUTION WIDTH SD 48.8 fL (36.4-46.3); WHITE BLOOD COUNT 8.04 K/uL (4.8-10.8)
[2017-03-22 16:46] LABS: BLOOD UREA NITROGEN 11 mg/dl (7-18); CALCIUM 8.9 mg/dl (8.5-10.1); CARBON DIOXIDE 27 mmol/L (21-32); CREATININE 0.86 mg/dl (0.60-1.20); GLUCOSE 121 mg/dl (70-99); SODIUM 135 mmol/L (136-145)
[2017-03-22 16:58] LABS: ALKALINE PHOSPHATASE 71 U/L (45-117); ALT/SGPT 140 U/L (12-78); AST/SGOT 86 U/L (15-37); CHOLESTEROL 200 mg/dl (0-200); LDL CHOLESTEROL CALCULATED 120 mg/dl; TOTAL PROTEIN 7.6 gm/dl (6.4-8.2)
== END | disposition home or self-care (01) ==
LOC: C.LAB 11:58
PROVIDERS: ATTEND Nurse Practitioner Family
DX: E03.9 Hypothyroidism, unspecified (principal); E88.81 Metabolic syndrome and other insulin resistance; M51.36 Other intervertebral disc degeneration, lumbar region; M48.07 Spinal stenosis, lumbosacral region; M21.372 Foot drop, left foot; R41.3 Other amnesia; F99 Mental disorder, not otherwise specified

== ENCOUNTER → 2017-04-29 | Outpatient (CLI) | payer OTHER | END | disposition home or self-care (01) | LOC: C.PATHSPEC 16:38 | PROVIDERS: ATTEND Dermatology | DX: L82.1 Other seborrheic keratosis (principal) ==

== ENCOUNTER → 2017-06-07 | Outpatient (CLI) | payer OTHER ==
[2017-06-07 17:51] LABS: BASO % 0.6 %; BASO ABS # 0.08 K/uL (0-0.2); EOS % 21.1 %; HEMATOCRIT 38.2 % (37-47); HEMOGLOBIN 12.3 g/dL (12.0-16.0); LYMPH ABS # 3.97 K/uL (1.2-3.4); MEAN CELL VOLUME 82.2 fL (80-100); MEAN CORPUSCULAR HEMOGLOBIN 26.5 pg (25-34); MEAN CORPUSCULAR HGB CONC 32.2 g/dl (32-36); MEAN PLATELET VOLUME 9.5 fL (7.4-10.4); MONO % 7.8 %; NEUT % 38.7 %; NEUT ABS # 4.94 K/uL (1.4-6.5); PLATELET COUNT 327 K/uL (130-400); RED CELL DISTRIBUTION WIDTH CV 16.4 % (11.5-14.5); RED CELL DISTRIBUTION WIDTH SD 49.5 fL (36.4-46.3); WHITE BLOOD COUNT 12.79 K/uL (4.8-10.8)
[2017-06-07 18:14] LABS: ALBUMIN 3.8 gm/dl (3.4-5.0); ALT/SGPT 96 U/L (12-78); AST/SGOT 74 U/L (15-37); BLOOD UREA NITROGEN 12 mg/dl (7-18); CARBON DIOXIDE 24 mmol/L (21-32); CREATININE 0.94 mg/dl (0.60-1.20); GLUCOSE 76 mg/dl (70-99); POTASSIUM 4.3 mmol/L (3.5-5.1); SODIUM 137 mmol/L (136-145)
[2017-06-07 18:24] LABS: ALKALINE PHOSPHATASE 79 U/L (45-117); TOTAL PROTEIN 7.5 gm/dl (6.4-8.2)
== END | disposition home or self-care (01) ==
LOC: C.LAB 17:07
PROVIDERS: ATTEND Nurse Practitioner Family
DX: K52.9 Noninfective gastroenteritis and colitis, unspecified (principal)

== ENCOUNTER → 2017-06-17 | Outpatient (CLI) | payer OTHER ==
--- NOTE | 2017-06-17 15:38 | DIAGNOSTIC IMAGING REPORT ---
ABDOMEN 2VIEW W/PA CHEST RTN CLINICAL HISTORY: 62 years-old Female presenting with R10.9 Abdominal painZ87.19 History of small bowel [id number]. TECHNIQUE: PA view of the chest and supine and upright views of the abdomen were obtained. COMPARISON: Chest x-ray from 08/27/2015 and abdominal x-ray from 12/19/2008.. FINDINGS: Atherosclerosis of the aortic arch. Cardiac silhouette normal in size. Lungs and pleural spaces clear. Nonobstructive bowel gas pattern. Paucity of small bowel gas, nonspecific. Moderate stool burden. No gross pneumoperitoneum. Allowing for bowel gas and stool, faint punctate calcification projects over the lower pole of the right kidney. Multiple pelvic phleboliths. Degenerative changes of L5-S1. IMPRESSION: 1. No acute cardiopulmonary disease. 2. No evidence of bowel obstruction or gross pneumoperitoneum. 3. Possible punctate right renal calculus. Electronically signed by: Rodriguez Caldwell M.D. 06/17/2017 3:37 PM Dictated Date/Time: 06/17/2017 3:34 PM
== END | disposition home or self-care (01) ==
LOC: C.RAD1850 15:03
PROVIDERS: ATTEND Physician Assistant
DX: R19.8 Other specified symptoms and signs involving the digestive system and abdomen (principal); R10.9 Unspecified abdominal pain; Z87.19 Personal history of other diseases of the digestive system

== ENCOUNTER 2018-08-17 15:12 | Observation (INO) ==
[2018-08-17 16:13] LABS: Basophils # (auto) 0.04 K/uL (0-0.2); Basophils % (auto) 0.5 %; Eosinophils # (auto) 0.25 K/uL (0-0.5); Eosinophils % (auto) 3.3 %; Hematocrit (blood only) 42.6 % (37-47); Hemoglobin 14.1 g/dL (12.0-16.0); Immature Granulocytes # (auto) 0.02 K/uL (0.00-0.02); Immature Granulocytes % (auto) 0.3 %; Lymphocytes # (auto) 2.45 K/uL (1.2-3.4); Mean Corpuscular Hgb Conc 33.1 g/dL (32-36); Mean Corpuscular Volume 86.1 fL (80-100); Mean Platelet Volume 9.8 fL (7.4-10.4); Monocytes % (auto) 14.4 %; Neutrophils % (auto) 49.5 %; Platelet Count 250 K/uL (130-400); RDW Coefficient of Variation 15.2 % (11.5-14.5); RDW Standard Deviation 47.6 fL (36.4-46.3); Red Blood Count 4.95 M/uL (4.2-5.4); White Blood Count 7.66 K/uL (4.8-10.8)
[2018-08-17 16:26] LABS: Partial Thromboplastin Ratio 0.9; Partial Thromboplastin Time 24.9 Seconds (21.0-31.0); Prothrombin Time 10.4 Seconds (9.0-12.0)
[2018-08-17 16:31] LABS: Alanine Aminotransferase 131 U/L (12-78); Albumin Level 4.3 gm/dl (3.4-5.0); Aspartate Aminotransferase 86 U/L (15-37); BUN Creatinine Ratio 17.9 (10-20); Blood Urea Nitrogen 16 mg/dl (7-18); Carbon Dioxide 26 mmol/L (21-32); Chloride 105 mmol/L (98-107); Creatinine Clr Calc Pharmacy 76.8 ml/min; Est GFR (African American) 78.8; Glucose 84 mg/dl (70-99); Magnesium 2.3 mg/dl (1.8-2.4); Potassium 4.6 mmol/L (3.5-5.1); Sodium 136 mmol/L (136-145)
[2018-08-17 16:36] LABS: Albumin Globulin Ratio 1.3 (0.9-2); Alkaline Phosphatase 61 U/L (45-117); Bilirubin,Total 0.5 mg/dl (0.2-1); Globulin 3.3 gm/dl (2.5-4.0); Total Protein 7.6 gm/dl (6.4-8.2); Troponin I < 0.015 ng/ml (0-0.045)
--- NOTE | 2018-08-17 16:39 | CT Scan Report ---
CT SCAN OF THE BRAIN WITHOUT IV CONTRAST CLINICAL HISTORY: Strokelike symptoms. Headache. COMPARISON STUDY: CT of the brain dated 08/27/2015. TECHNIQUE: Unenhanced axial CT scan of the brain is performed from the vertex to the skull base. A d ose lowering technique was utilized adhering to the principles of ALARA. CT DOSE: 537.48 mGy.cm FINDINGS: Brain parenchyma: The brain parenchyma is normal in appearance. There is no hemorrhage, mass effect, or evidence of acute territorial ischemia by CT criteria. Loco-white matter differentiation is preser sukumar. No extra-axial fluid collection is seen. Ventricles, sulci, cisterns: Normal in configuration. Intracranial vasculature: There is mild atherosclerotic calcification of the cavernous carotid arteri es. Calvarium: Unremarkable. Sinuses and mastoids: The visualized paranasal sinuses are clear. The mastoid air cells are well pneu matized. Orbits: The visualized bony orbits are grossly intact. IMPRESSION: There is no hemorrhage, mass effect, or evidence of acute territorial ischemia by CT diana vargas. Electronically signed by: Juan Carlos Alonzo M.D. 08/17/2018 4:38 PM
--- NOTE | 2018-08-17 17:27 | Emergency Department Note ---
Entered by Holly Marcum acting as a scribe for Kishan Castro History of Present Illness General Chief complaint: Neuro Symptoms/Deficit Stated complaint: STROKE SYMPTOMS Time Seen by Provider: 08/17/18 15:19 Source: patient History of Present Illness Provider complaint: neurological symptoms Onset (ago): hour(s) 6 Location: head Maximum Pain Intensity: 7 Relieved By: + none Exacerbated By: + none Associated symptoms: + headaches, + nausea/vomiting (+nausea, -vomiting) and + other (+left facial droop, +left ear pain, +slurred speech) The patient is a 63 year old female who presents to the Emergency Room with complaints of headache and slurred speech. The patient states that she was referred by her PCP who said that her left eye was unreactive and that she was having left sided facial droop. The patients family states that she was slurring her words. She states that she was having left sided ear pain. The patient state that she has nausea and a headache The patients that her symptoms started at 900 this morning. She reports that she has a history of TIA couple of years ago. She states that she is not currently on blood thinners. Home Medications Home Medications Medication Instructions Recorded Confirmed Type amitriptyline 50 mg PO HS PRN 12/18/17 08/17/18 History bupropion HCl [Wellbutrin SR] 200 mg PO BID 12/18/17 08/17/18 History donepezil [Aricept] 10 mg PO HS 12/18/17 08/17/18 History levothyroxine [Synthroid] 125 mcg PO DAILY 12/18/17 08/17/18 History liothyronine [Cytomel] 25 mcg PO Q OTHER DAY 12/18/17 08/17/18 History metformin [Glucophage] 1,000 mg PO BIDM 12/18/17 08/17/18 History aspirin [Aspir-81] 243 mg PO ONCE 08/17/18 08/17/18 History clobetasol 1 applic TOPICAL DIRECTED 08/17/18 08/17/18 History diclofenac sodium 50 mg PO TID PRN 08/17/18 08/17/18 History empagliflozin [Jardiance] 10 mg PO QAM 08/17/18 08/17/18 History naproxen sodium [Aleve] 220 - 440 mg PO DIRECTED PRN 08/17/18 08/17/18 History omeprazole 40 mg PO DAILYBB 08/17/18 08/17/18 History tramadol 50 - 100 mg PO Q6 PRN MDD MAX 8 08/17/18 08/17/18 History TABS DAILY Allergies Allergy/AdvReac Type Severity Reaction Status Date / Time amantadine Allergy Intermediate GI UPSET Verified 08/17/18 15:38 doxycycline Allergy Intermediate GI UPSET Verified 08/17/18 15:38 Past Med/Surg History Medical History Benign essential tremor (Acute) Confusion and disorientation (Acute) Deterioration of memory (Acute) GERD (gastroesophageal reflux disease) (Acute) Hypertriglyceridemia (Acute) Insomnia (Acute) Left foot drop (Acute) Osteoarthrosis (Acute) Other intervertebral disc degeneration, lumbar region (Acute) Stenosis of lumbosacral spine (Acute) Type 2 diabetes mellitus (Acute) Anxiety Executive function deficit Transaminitis Hypothyroid Exertional chest pain (Acute) Shortness of breath (Acute) Nausea DVT prophylaxis Depression (Chronic) Lumbar spinal stenosis (Chronic) Diabetes (Chronic) Cellulitis, leg (Acute) Concussion (Acute) Encounter for removal of sutures (Acute) Fall (Acute) Headache (Acute) Hematoma of leg (Acute) TIA (transient ischemic attack) Abdominal muscle defects Executive function deficit Pre-diabetes Surgical History H/O resection of small bowel Status post left partial knee replacement Status post right partial knee replacement Family History Other Coronary heart disease Social History Preferred Language: [place] Communication Ability: Effective Beliefs That Will Affect Care: None Current Living Situation: Spouse Feels Safe at Home: Yes Smoking Status: Never smoker Hx Alcohol Use: Yes Alcohol type: beer, wine and hard liquor Hx Substance Use: No Review of Systems See HPI for pertinent positives & negatives. and A total of 10 systems reviewed and were otherwise negative Physical Exam Vital Signs Vital Signs - 24 hr 08/17/18 15:12 08/17/18 17:12 Temperature 37.0 C Temperature Source Oral Sepsis Recent Fever Within 48 Hours No Sepsis Action Taken by Nursing No Action Required Pulse Rate 80 Respiratory Rate 18 18 Respiratory Effort / Characteristics Non-Labored Spontaneous Non-Labored Spontaneous Respiratory Depth Normal Normal Respiratory Pattern Regular Regular Blood Pressure 158/87 H Blood Pressure [Right Arm] 127/73 Blood Pressure Mean 110 Blood Pressure Mean [Right Arm] 91 Blood Pressure Position Sitting Blood Pressure Position [Right Arm] Lying Pulse Oximetry 95 92 Oxygen Delivery Method Room Air Room Air GENERAL: She is oriented to person, place, and time. She appears well-developed and well-nourished. She does not appear distressed. HENT: Exam performed. Head: Normocephalic and atraumatic. Right Ear: External ear normal. No mastoid tenderness. Left Ear: External ear normal. No mastoid tenderness. Mouth/Throat: The oropharynx is clear and moist. No trismus in the jaw. No dental abscesses or uvula swelling. No oropharyngeal exudate or tonsillar abscesses. EYES: Conjunctivae and EOM are normal. Pupils are equal, round, and reactive to light. Right eye exhibits no discharge. Left eye exhibits no discharge. No scleral icterus. NECK: Normal range of motion. Neck supple. No JVD present. No spinous process tenderness present. No carotid bruit present. No rigidity. No tracheal deviation and normal range of motion present. No Brudzinski's sign and no Kernig's sign noted. CV: Normal rate, regular rhythm, normal heart sounds and intact distal pulses. There is no peripheral edema. Palpable radial pulses bue. PULM/CHEST: Effort normal and breath sounds normal. No respiratory distress. No stridor. She has no wheezes. She has no rales. Chest Wall: She exhibits no tenderness. ABD: The abdomen is soft. Bowel sounds are normal. She has no distension. No mass is present. There is no tenderness. There is no rebound, no guarding, no M urphy's sign and no tenderness at McBurney's point. Rovsig negative MUSC/SKEL: Normal range of motion. There is no peripheral edema, tenderness or deformity. LYMPH: No cervical adenopathy. NEURO: NIHSS 1. Mild dysarthria. She is alert and oriented to person, place, and time. She has normal strength. No cranial nerve deficit or sensory deficit. Coordination and gait normal. GCS eye subscore is 4. GCS verbal subscore is 5. GCS motor subscore is 6. cerbellar tests wnl. SKIN: Skin is warm and dry. She is not diaphoretic. PSYCH: She has a normal mood and affect. Her behavior is normal. Judgment and thought content normal. Course 1520: The patient was evaluated in room C11B, and a complete history and physical examination were performed. The patient's symptoms became evident when she woke up at 900 today. She is not a TPA candidate due to the symptoms that started at 900. Since the exact time of onset was unknown, she is out of the TPA window. 1657: The patient's vital signs were stable and her labs were within normal limits. The patient's dysarthria is slightly improving. The patient's symptoms were consistent with TIA. She will evaluated by Dr. White [facility] Hospitalist. Reevaluation(s) Reevaluation #1: Dr. White [facility] Hospitalist Time: 16:57 Medical Decision Making Medical Records Attestation: I reviewed the patient's medical records. Home Medications Current Medication List: was personally reviewed by me Laboratory Data Attestation: I reviewed the patient's lab results. Result diagrams: 08/17/18 15:59 08/17/18 15:59 Lab Results 08/17/18 08/17/18 08/17/18 Range/Units 15:59 15:59 15:59 WBC 7.66 (4.8-10.8) K/uL RBC 4.95 (4.2-5.4) M/uL Hgb 14.1 (12.0-16.0) g/dL Hct 42.6 (37-47) % MCV 86.1 (80-100) fL MCH 28.5 (25-34) pg MCHC 33.1 (32-36) g/dL RDW Std Deviation 47.6 H (36.4-46.3) fL RDW Coeff of Mick 15.2 H (11.5-14.5) % Plt Count 250 (130-400) K/uL MPV 9.8 (7.4-10.4) fL Immature Gran % (Auto) 0.3 % Neut % (Auto) 49.5 % Lymph % (Auto) 32.0 % [place] % (Auto) 14.4 % Eos % (Auto) 3.3 % Baso % (Auto) 0.5 % Immature Gran # (Auto) 0.02 (0.00-0.02) K/uL Neut # (Auto) 3.80 (1.4-6.5) K/uL Lymph # (Auto) 2.45 (1.2-3.4) K/uL [place] # (Auto) 1.10 H (0.11-0.59) K/uL Eos # (Auto) 0.25 (0-0.5) K/uL Baso # (Auto) 0.04 (0-0.2) K/uL PT 10.4 (9.0-12.0) Seconds INR 1.0 (0.9-1.1) APTT 24.9 (21.0-31.0) Seconds PTT Ratio 0.9 Sodium 136 (136-145) mmol/L Potassium 4.6 (3.5-5.1) mmol/L Chloride 105 (98-107) mmol/L Carbon Dioxide 26 (21-32) mmol/L Anion Gap 5.0 (3-11) BUN 16 (7-18) mg/dl Creatinine 0.89 (0.6-1.2) mg/dl Est Cr Clr Drug Dosing 76.8 ml/min Est GFR ( Amer) 78.8 Est GFR (Non-Af Amer) 68.0 BUN/Creatinine Ratio 17.9 (10-20) Glucose 84 (70-99) mg/dl Calcium 9.0 (8.5-10.1) mg/dl Magnesium 2.3 (1.8-2.4) mg/dl Total Bilirubin 0.5 (0.2-1) mg/dl AST 86 H (15-37) U/L ALT 131 H (12-78) U/L Alkaline Phosphatase 61 (45-117) U/L Troponin I < 0.015 (0-0.045) ng/ml Total Protein 7.6 (6.4-8.2) gm/dl Albumin 4.3 (3.4-5.0) gm/dl Globulin 3.3 (2.5-4.0) gm/dl Albumin/Globulin Ratio 1.3 (0.9-2) ECG Data Attestation: I personally reviewed and interpreted this ECG as follows: Indication: other (neurological symptoms) Rate (beats per minute): 73 Rhythm: sinus rhythm Findings: no ST depression and no ST elevation Blood Pressure Blood Pressure Findings: Elevated blood pressure Blood Pressure Disposition: elevated BP felt to be situational [facility] Narrative 1520: The patient was evaluated in room C11B, and a complete history and physical examination were performed. The patient's symptoms became evident when she woke up at 900 today. She is not a TPA candidate due to the symptoms that started at 900. Since the exact time of onset was unknown, she is out of the TPA window. 1657: The patient's vital signs were stable and her labs were within normal limits. The patient's dysarthria is slightly improving. The patient's symptoms were consistent with TIA. She will evaluated by Dr. Teresa- [facility] Hospitalist. Impression & Plan TIA (transient ischemic attack) Discharge Plan Visit Data Chief Complaint: Neuro Symptoms/Deficit Stated Complaint: STROKE SYMPTOMS ED Provider: Kishan Castro Discharge Problem: TIA (transient ischemic attack) Patient Disposition: Being Evaluated by Hospitalist Forms Stand Alone Forms: [facility] Prescriptions Prescriptions: No Action clobetasol 0.05 % Cream 1 applic TOPICAL DIRECTED RF: 0 omeprazole 40 mg Capsule,Delayed Release(Dr/Ec) 40 mg PO DAILYBB RF: 0 tramadol 50 mg Tablet 50 - 100 mg PO Q6 MDD MAX 8 TABS DAILY PRN (Reason: Pain) RF: 0 naproxen sodium [Aleve] 220 mg Tablet 220 - 440 mg PO DIRECTED PRN (Reason: Pain) RF: 0 diclofenac sodium 50 mg Tablet,Delayed Release (Dr/Ec) 50 mg PO TID PRN (Reason: Pain) RF: 0 Jardiance 10 mg Tablet 10 mg PO QAM RF: 0 aspirin [Aspir-81] 81 mg Tablet,Delayed Release (Dr/Ec) 243 mg PO ONCE RF: 0 liothyronine [Cytomel] 25 mcg tablet 25 mcg PO Q OTHER DAY RF: 0 donepezil [Aricept] 10 mg tablet 10 mg PO HS RF: 0 amitriptyline 50 mg tablet 50 mg PO HS PRN (Reason: Sleep) RF: 0 levothyroxine [Synthroid] 125 mcg tablet 125 mcg PO DAILY RF: 0 bupropion HCl [Wellbutrin SR] 200 mg tablet sustained-release 12 hr 200 mg PO BID RF: 0 metformin [Glucophage] 1,000 mg tablet 1,000 mg PO BIDM RF: 0 Referrals Referrals: Yusef Land III, [place] [Primary Care Provider] - The scribe's documentation has been prepared under my direction and personally reviewed by me in its entirety. I confirm that the note above accurately reflects all work, treatment, procedures, and medical decision making performed by me.
--- NOTE | 2018-08-17 17:56 | History & Physical Report ---
Date of Service August 17, 2018 Assessment & Plan (1) TIA (transient ischemic attack): Symptoms are nearly resolved. The slurred speech has resolved and the left facial droop is no longer noticeable. This was seen by the patient herself and the physician at the urgent care center. Her left pupil remains slightly sluggish and she does notice some difficulty with focusing. Otherwise no jane pheral motor deficits. Observation with telemetry. Neurology consultation. Continue aspirin therapy. Obtain brain MRI and MRA Present on Admission?: Yes (2) Type 2 diabetes mellitus: ADA diet. Continue Jardiance. Hold metformin. Sliding scale coverage Present on Admission?: Yes (3) Hypothyroid: Continue thyroid replacement. Check TSH level Present on Admission?: Yes (4) Dementia: Mild. Treated with Aricept Present on Admission?: Yes (5) DVT prophylaxis: Lovenox subcu History of Present Illness Chief Complaint: Headache, slurred speech, left facial droop Primary Care Provider: Yusef Land III, [employer] DES[employer] 63-year-old female who awoke this morning with a headache and she had mild slurred speech and mild left facial droop. She went to an urgent care center and was evaluated and sent here for evaluation. Her symptoms are resolving and she no longer has a left facial droop or dysarthria. Her left pupil is slightly sluggish and she says she has some blurred vision. She denies any amaurosis f ugax. Head CT scan is unremarkable. She will be treated as a resolving TIA and placed on observation with telemetry. Brain MRI/MRA and neck MRA will be obtained. She has received aspirin therapy. Thyroid status will be checked since she takes thyroid replacement medications. She is stable at the time of my examination. Allergies Allergy/AdvReac Type Severity Reaction Status Date / Time amantadine Allergy Intermediate GI UPSET Verified 08/17/18 15:38 doxycycline Allergy Intermediate GI UPSET Verified 08/17/18 15:38 Home Medications Home Medications Medication Instructions Recorded Confirmed Type amitriptyline 50 mg PO HS PRN 12/18/17 08/17/18 History bupropion HCl [Wellbutrin SR] 200 mg PO BID 12/18/17 08/17/18 History donepezil [Aricept] 10 mg PO HS 12/18/17 08/17/18 History levothyroxine [Synthroid] 125 mcg PO DAILY 12/18/17 08/17/18 History liothyronine [Cytomel] 25 mcg PO Q OTHER DAY 12/18/17 08/17/18 History metformin [Glucophage] 1,000 mg PO BIDM 12/18/17 08/17/18 History aspirin [Aspir-81] 243 mg PO ONCE 08/17/18 08/17/18 History clobetasol 1 applic TOPICAL DIRECTED 08/17/18 08/17/18 History diclofenac sodium 50 mg PO TID PRN 08/17/18 08/17/18 History empagliflozin [Jardiance] 10 mg PO QAM 08/17/18 08/17/18 History naproxen sodium [Aleve] 220 - 440 mg PO DIRECTED PRN 08/17/18 08/17/18 History omeprazole 40 mg PO DAILYBB 08/17/18 08/17/18 History tramadol 50 - 100 mg PO Q6 PRN MDD MAX 8 08/17/18 08/17/18 History TABS DAILY Past Med/Surg History Medical History Benign essential tremor (Acute) Confusion and disorientation (Acute) Deterioration of memory (Acute) GERD (gastroesophageal reflux disease) (Acute) Hypertriglyceridemia (Acute) Insomnia (Acute) Left foot drop (Acute) Osteoarthrosis (Acute) Other intervertebral disc degeneration, lumbar region (Acute) Stenosis of lumbosacral spine (Acute) Type 2 diabetes mellitus (Acute) Anxiety Executive function deficit Transaminitis Hypothyroid Exertional chest pain (Acute) Shortness of breath (Acute) Nausea DVT prophylaxis Depression (Chronic) Lumbar spinal stenosis (Chronic) Diabetes (Chronic) Cellulitis, leg (Acute) Concussion (Acute) Encounter for removal of sutures (Acute) Fall (Acute) Headache (Acute) Hematoma of leg (Acute) TIA (transient ischemic attack) Abdominal muscle defects Executive function deficit Pre-diabetes Surgical History H/O resection of small bowel Status post left partial knee replacement Status post right partial knee replacement Family History Other Coronary heart disease Social History Preferred Language: Nepali Communication Ability: Effective Beliefs That Will Affect Care: None Current Living Situation: Spouse Feels Safe at Home: Yes Smoking Status: Never smoker Hx Alcohol Use: Yes Alcohol type: beer, wine and hard liquor Hx Substance Use: No Review of Systems Review of Systems: All systems reviewed & are unremarkable except as noted in HPI & below Neurologic: + headache(s) and + abnormal speech Left facial droop resolved Physical Exam Constitutional: WD/WN, vitals as above Eyes: Bilateral pupils are equal but the left eye pupil reflex is slightly sluggish compared to the right. No extraocular muscle abnormalities. ENMT: external ear and nose normal, oropharynx normal Neck: trachea midline, no thyromegaly Respiratory: normal respiratory effort, lungs clear to auscultation Cardiovascular: RRR, no murmur, no edema Gastrointestinal (Abdomen): normal bowel sounds, soft, nontender, no hepatosplenomegaly Musculoskeletal: no cyanosis or clubbing, extremities motor strength 5/5 Skin: no rashes, warm and dry Neurologic: Cranial Nerves: EOM intact bilaterally, normal gag reflex and no nystagmus Gait: no ataxic gait Coordination: normal [id number] test and normal [id number] test Pupils are equal but the left pupil is somewhat sluggish to react to light Results & Data Vital Signs (Past 12 Hours) Vital Signs Temp Pulse Resp BP BP Pulse Ox 08/17/18 17:12 18 127/73 92 08/17/18 15:12 37.0 C 80 18 158/87 H 95 Laboratory Results 08/17/18 15:59 08/17/18 15:59
[2018-08-17] MEDS ORDERED: PHARMACIST DISCHARGE MED REC CONSULT PRN (18:25)
[2018-08-17] MEDS ORDERED: DICLOFENAC SODIUM 25 MG TABDR PO PRN (18:25)
[2018-08-17] MEDS ORDERED: ONDANSETRON INJ 2 MG/ML 2 ML VIAL IV PRN (18:25)
[2018-08-17] MEDS ORDERED: TRAMADOL HCL 50 MG TABLET PO PRN (18:25)
[2018-08-17] MEDS ORDERED: ALUMINUM/MAGNESIUM SUSP 30 ML UDC PO PRN (18:25)
[2018-08-17] MEDS: ACETAMINOPHEN 325 MG TAB PO PRN (18:54)
[2018-08-17] MEDS ORDERED: GADOBUTROL 10ML VIAL IV PRN (19:46)
--- NOTE | 2018-08-17 20:09 | Magnetic Resonance Report ---
MR ANGIOGRAM OF THE BRAIN CLINICAL HISTORY: Transient ischemic attack. COMPARISON STUDY: MR angiogram of the brain dated 11/22/2015. TECHNIQUE: 3-D [id number] MR angiography of the intracranial circulation is performed. 3-D tumble views are created and assessed. IV contrast was not administered for this examination. The Examinati on is modestly degraded by motion artifact. FINDINGS: The red [place] of [place] is developmentally complete. The internal carotid arteries are widely patent bilaterally, as are the anterior and middle cerebral arteries. The vertebrobasilar system and posterior cerebral arteries are widely patent. The vertebral arteries are codominant. There is no ane urysm, high-grade stenosis, or focal vessel cutoff seen throughout the intracranial circulation. The brain parenchyma is normal as visualized. IMPRESSION: Unremarkable MR angiogram of the brain. Electronically signed by: Juan Carlos Alonzo M.D. 08/17/2018 8:08 PM
--- NOTE | 2018-08-17 20:35 | Magnetic Resonance Report ---
MRI OF THE BRAIN WITHOUT IV CONTRAST CLINICAL HISTORY: Transient ischemic attack. COMPARISON STUDY: CT of the brain dated 08/17/2018. MRI of the brain dated 11/22/2015. TECHNIQUE: MRI of the brain was performed utilizing various T1 and T2-weighted sequences in the axial , sagittal, and coronal planes. IV contrast was not administered for this examination. FINDINGS: Brain parenchyma: There is minimal subcortical and periventricular microangiopathic disease. There is no hemorrhage or mass effect. There is no restricted diffusion to suggest acute ischemia. Loco-white matter differentiation is preserved. No extra-axial fluid collection is seen. The cerebellar tonsils are normal in configuration. Ventricles, sulci, and cisterns: Normal in configuration. Pituitary and sella: Unremarkable. Intracranial vasculature: Normal flow voids are maintained at the skull base. Orbits: The bony orbits are grossly intact. Orbital contents are normal in appearance. Sinuses and mastoids: Clear. Calvarium: Unremarkable. Cervical cord: Partially visualized cervical spinal cord is normal in morphology and signal intensity . IMPRESSION: No acute intracranial abnormality. Electronically signed by: Juan Carlos Alonzo M.D. 08/17/2018 8:34 PM
[2018-08-17] MEDS: ENOXAPARIN INJ 40 MG/0.4 ML SYR SQ SCH (20:50)
[2018-08-17] MEDS: BuPROPion SR 100 MG TABCR PO SCH (20:50)
[2018-08-17] MEDS: DONEPEZIL HCL 10 MG TAB PO SCH (20:50)
[2018-08-17] MEDS: INSULIN ASPART 100 UNITS/ML 3 ML PEN SC SCH (20:57)
--- NOTE | 2018-08-17 21:09 | Magnetic Resonance Report ---
MR ANGIOGRAM OF THE NECK COMBO CLINICAL HISTORY: Transient ischemic attack. COMPARISON STUDY: MR angiogram of the neck dated 03/15/2015. TECHNIQUE: Axial 3-D [id number] MR angiography of the neck is performed. Subsequently, following the IV administration of 9.5 cc of Gadavist. Coronal MR angiogram of the neck was performed to corrob orate the findings. 3-D reformats are created and assessed. All measurements were calculated based on NASCET criteria. The examination is modestly degraded by motion artifact. FINDINGS: Visualized portions of the thoracic aorta are normal in caliber. The aortic arch demonstrat es standard 3-vessel anatomy. The subclavian arteries are widely patent bilaterally. The right common carotid artery is widely patent, as are the right internal and external carotid arteries. The left c ommon carotid artery is widely patent, as are the left internal and external carotid arteries. The ve rtebral arteries are widely patent. The vertebral arteries are codominant. The visualized intracrania l vessels at the skull base appear patent. IMPRESSION: Unremarkable MR angiogram of the neck. Electronically signed by: Juan Carlos Alonzo M.D. 08/17/2018 9:07 PM
[2018-08-17] MEDS: AMITRIPTYLINE HCL 50 MG TAB PO PRN (23:51)
[2018-08-18] MEDS ORDERED: LORazepam 0.5 MG TAB PO STA (01:48)
[2018-08-18] MEDS: LEVOTHYROXINE SODIUM 125 MCG TABLET PO SCH (06:01)
[2018-08-18] MEDS: PANTOprazole 40 MG TAB PO SCH (06:01)
[2018-08-18 06:31] LABS: Estimated Average Glucose 128 mg/dl; Hemoglobin A1C 6.1 % (4.5-5.6)
[2018-08-18] MEDS: INSULIN ASPART 100 UNITS/ML 3 ML PEN SC SCH ×4 (07:54→20:45)
[2018-08-18] MEDS: ASPIRIN 81 MG ECTAB PO SCH (07:58)
[2018-08-18] MEDS: BuPROPion SR 100 MG TABCR PO SCH ×2 (07:58→20:44)
[2018-08-18 08:02] LABS: Basophils # (auto) 0.05 K/uL (0-0.2); Basophils % (auto) 0.8 %; Eosinophils # (auto) 0.26 K/uL (0-0.5); Eosinophils % (auto) 4.2 %; Hematocrit (blood only) 41.8 % (37-47); Hemoglobin 13.4 g/dL (12.0-16.0); Immature Granulocytes # (auto) 0.02 K/uL (0.00-0.02); Immature Granulocytes % (auto) 0.3 %; Lymphocytes # (auto) 2.61 K/uL (1.2-3.4); Mean Corpuscular Hgb Conc 32.1 g/dL (32-36); Mean Corpuscular Volume 85.8 fL (80-100); Monocytes # (auto) 0.61 K/uL (0.11-0.59); Monocytes % (auto) 9.8 %; Neutrophils # (auto) 2.66 K/uL (1.4-6.5); Neutrophils % (auto) 42.9 %; Platelet Count 214 K/uL (130-400); RDW Coefficient of Variation 15.1 % (11.5-14.5); RDW Standard Deviation 47.3 fL (36.4-46.3); Red Blood Count 4.87 M/uL (4.2-5.4); White Blood Count 6.21 K/uL (4.8-10.8)
[2018-08-18 08:30] LABS: BUN Creatinine Ratio 17.4 (10-20); Calcium 8.5 mg/dl (8.5-10.1); Creatinine Clr Calc Pharmacy 78.6 ml/min; Est GFR (Non-African American) 69.9; Potassium 4.2 mmol/L (3.5-5.1)
[2018-08-18] MEDS ORDERED: KETOROLAC TROMETHAMINE 15 MG/ML VIAL IV ONE (09:36)
[2018-08-18] MEDS ORDERED: KETOROLAC TROMETHAMINE 15 MG/ML VIAL ONE (09:41)
[2018-08-18] MEDS ORDERED: PERFLUTREN LIPID MICROSPHERE (DEFINITY) IV ONE (09:57)
--- NOTE | 2018-08-18 11:04 | Neurology Consultation ---
Date of Consultation August 18, 2018 Assessment & Plan (1) TIA (transient ischemic attack): Patient had an episode of word-finding difficulty/slurred speech, left facial droop, and blurry vision to the left. The symptoms have resolved but this morning and she is back to baseline neurologically. MRI of the brain did not show a stroke and shows very minimal old small vessel ischemic changes. Overall, this is consistent with a TIA involving the right hemisphere. It was likely very small vessel ischemic related. MR angiography of the head neck is unremarkable showing no obvious vessel anomalies. Echocardiogram is pending although I doubt this was embolic in nature. Risk factors for stroke include elevated blood pressure, mildly elevated glucose, and dyslipidemia. She quit cigarette smoking in 2008. (2) Dementia: Patient has mild cognitive impairment likely started prior to her 2 concussions in 2016. She had some post concussive syndrome issues which have improved. Her memory is probably been stable however there may be a little bit of progression over the last couple of years. She is on donepezil. Patient does have some history of anxiety and depression but there is no evidence of these being significant factors currently. (3) Benign essential tremor: Patient has mild postural and action tremor. This is consistent with a mild essential tremor. There is no signs of Parkinson's disease (no resting tremor, cogwheel rigidity, bradykinesia, or Parkinson's gait). 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 (4) Lumbar spinal stenosis: Patient has a history of lumbar spinal stenosis with left S1 radiculopathy. This gives her mild left foot drop which currently is a intermittent went fatigue. She is not having active spine disease currently. Recommendations: 1. Initiate 81 milligram aspirin tablet daily. 2. Control blood pressure as you are doing keeping mean arterial pressure 95- 100. 3. Control sugaraiming for a hemoglobin A1c of less than 6.0. 4. Consider statin for her elevated lipids. She would technically be a high- dose statin candidate but I think we should start off with a regular dose initially. 5. Echocardiogram results are pending. 6. Increase activity as able. 7. I have no further neurologic testing or treatment recommendations to make at this time. Overall, I spent a total of 90 minutes with this case (with greater than 50 percent of this time [id number] with patient) including review of records, review of MRI films, direct evaluation the patient at bedside, and discussion of the case with the patient at bedside and Dr. Giang at bedside including differential diagnosis and treatment options. History of Present Illness Reason for Consultation: Patient is a 63-year-old, who was asked to see the request of Dr. Teresa, for neurologic consultation regarding stroke versus TIA Requesting Physician: Dr. Teresa Attending Physician: Clive Giang History of Present Illness Patient has a history of hypertension pre diabetes, essential tremor, lumbar spinal stenosis with left S1 radiculopathy and footdrop, anxiety and depression, mild cognitive deficits and history of concussion, and an unusual event 2 years ago that may have been a TIA or seizure. Patient started having some cognitive problems and balance issues sometime in 2014. An MRI of the brain in February of 2015 was unremarkable. She had a concussion in March of 2015 falling and hitting her head and a 2nd one in July of 2015 where she fell into a wall and hit her head. She was having cognitive problems, word-finding problems, and balance problems. She saw Dr. Childers in October of 2015 who noted a left foot drop some very mild cognitive impairment and essential tremor. Neuropsychological testing by Dr. London revealed some scattered nonspecific cognitive issues in various areas consistent with post concussive syndrome accompanied by some anxiety. In April of 2016 she had an episode while out to dinner of word-finding difficulties, eyes rolling up in her head, loss of coordination, which lasted some period of time and then she slept 15 hours after this. The patient went to [facility] neurology, Dr. Meka Lema, in [facility], in June of 2016. She diagnosed mild essential tremor, mild cognitive impairment, and the left foot drop. An EEG apparently was performed but I do not have these results. I assume it was unremarkable. She was supposed to have another EMG but never had this. The patient did well for the next couple of years without much change neurologically. There may be some very mild cognitive progression over time. She feels her balance and tremor is about the same in her left foot drop process same. Typically she does very well unless she is tired. When over exerting or fatigue she will have increased in left foot drop, balance problems, and word- finding difficulties. Her memory gets a little bit worse as well. Her mood has been good and she has no significant issues with anxiety or depression. For the last 2 days she has had some left neck and shoulder discomfort. This is intermittent and there is no pain that radiates down into the left upper extremity. She woke up August 17 feeling fairly reasonable. She had some warm sensation al nate her left neck but perhaps some into her left face and head. She was active in the morning and ended up going to [employer] to eat around 12 30. She developed some left ear pain in increased discomfort in the left face and head. This extended to the left neck. She had little bit of blurry vision in the left eye and decided around 130 to go to [facility] by [facility], thinking she had a left ear infection. The clinician there felt that the patient had a left facial droop, slurred speech, and a nonreactive left pupil. Prior to going to medics pressed the patient did not notice any of this. She arrived to the emergency room at 1512 hours with a temperature 37.0, pulse of 80, respiratory rate 18, blood pressure 158/87, and O2 saturation 95 percent. The emergency room physician felt the patient had very mild dysarthria and perhaps a slight facial droop but no tPA was warranted due to uncertainty as to the time of onset of symptoms. CT scan of the head was unremarkable. CBC and Chem profile were largely unremarkable. Hemoglobin A1c was 6.1. Triglyceride 1 or 183, total cholesterol 183, LDL 105 MR angiography of the head and neck were unremarkable with no significant st enoses or vessel anomalies. MRI of the brain showed very mild old nonspecific small vessel ischemic changes. There were no acute changes or stroke. There was no significant atrophy. I reviewed these films. This morning the patient feels much better. She had episode of chest pressure last night and again this morning. Medication helped EKG was unremarkable. An echocardiogram is pending. She has minimal headache currently and no chest pain. She has no speech problems has no symptoms in her arms or legs. There is no pain. Allergies Allergy/AdvReac Type Severity Reaction Status Date / Time amantadine Allergy Intermediate GI UPSET Verified 08/17/18 15:38 doxycycline Allergy Intermediate GI UPSET Verified 08/17/18 15:38 Home Medications Home Medications Medication Instructions Recorded Confirmed Type amitriptyline 50 mg PO HS PRN 12/18/17 08/17/18 History bupropion HCl [Wellbutrin SR] 200 mg PO BID 12/18/17 08/17/18 History donepezil [Aricept] 10 mg PO HS 12/18/17 08/17/18 History levothyroxine [Synthroid] 125 mcg PO DAILY 12/18/17 08/17/18 History liothyronine [Cytomel] 25 mcg PO Q OTHER DAY 12/18/17 08/17/18 History metformin [Glucophage] 1,000 mg PO BIDM 12/18/17 08/17/18 History aspirin [Aspir-81] 243 mg PO ONCE 08/17/18 08/17/18 History clobetasol 1 applic TOPICAL DIRECTED 08/17/18 08/17/18 History diclofenac sodium 50 mg PO TID PRN 08/17/18 08/17/18 History empagliflozin [Jardiance] 10 mg PO QAM 08/17/18 08/17/18 History naproxen sodium [Aleve] 220 - 440 mg PO DIRECTED PRN 08/17/18 08/17/18 History omeprazole 40 mg PO DAILYBB 08/17/18 08/17/18 History tramadol 50 - 100 mg PO Q6 PRN MDD MAX 8 08/17/18 08/17/18 History TABS DAILY Patient History Medical History DVT prophylaxis Dementia (Chronic) TIA (transient ischemic attack) (Acute) Benign essential tremor (Acute) Confusion and disorientation (Acute) Deterioration of memory (Acute) GERD (gastroesophageal reflux disease) (Acute) Hypertriglyceridemia (Acute) Insomnia (Acute) Left foot drop (Acute) Osteoarthrosis (Acute) Other intervertebral disc degeneration, lumbar region (Acute) Stenosis of lumbosacral spine (Acute) Type 2 diabetes mellitus (Chronic) Anxiety Executive function deficit Transaminitis Hypothyroid (Chronic) Exertional chest pain (Acute) Shortness of breath (Acute) Nausea DVT prophylaxis Depression (Chronic) Lumbar spinal stenosis (Chronic) Diabetes (Chronic) Cellulitis, leg (Acute) Concussion (Acute) Encounter for removal of sutures (Acute) Fall (Acute) Headache (Acute) Hematoma of leg (Acute) TIA (transient ischemic attack) Abdominal muscle defects Executive function deficit Pre-diabetes Surgical History H/O resection of small bowel Status post left partial knee replacement Status post right partial knee replacement Family History Mother Coronary heart disease Father , age 49 of brain cancer Brain cancer Social History Preferred Language: [place] Communication Ability: Effective Beliefs That Will Affect Care: None Current Living Situation: Spouse current occupational status: retired current occupation: Retired 2015 from [employer] Other Information That Helps Us Care for You: No 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 Feels Safe at Home: Yes Safety Concerns: Feels Safe At This Time Smoking Status: Former smoker Smoking End Date: 2008 Hx Alcohol Use: Yes Alcohol type: beer and wine Alcohol Intake Frequency Comment: 3-4 glasses of wine per week. Hx Substance Use: No Review of Systems Constitutional: + fatigue; no fever, no body aches and no weakness Eyes: no diplopia, no eye pain and no worsening vision Ear, Nose, Mouth, Throat: no ear pain, no tinnitus, no hearing loss and no dysphagia Respiratory: no cough and no dyspnea Cardiovascular: no chest pain, no dyspnea and no palpitations Gastrointestinal: no abdominal pain, no nausea and no vomiting Genitourinary: no dysuria, no urinary frequency and no urinary incontinence Musculoskeletal: no back pain, no neck pain, no radicular pain, no myalgia, no muscle weakness and no muscle atrophy Integumentary: no rash and no lesions Neurologic: + unsteadiness and + tremor(s); no gait abnormality, no falls, no localized weakness, no generalized weakness, no tingling, no numbness, no abnormal movements, no dizziness, no headache(s), no abnormal speech, no behavioral changes, no confusion and no memory loss Psychiatric: no depression, no abnormal sleep pattern, no anxiety, no difficulty concentrating, no confusion and no hallucinations Endocrine: no fatigue and no flushing Hematologic / Lymphatic: no easy bleeding and no easy bruising Allergy / Immunological: no urticaria Physical Exam Physical Exam: The patient is left-handed. The patient is awake, alert, and attentive. Speech is normal without any aphasia or dysarthria. Mentation and thought processes are intact, with full orientation and normal fund of knowledge. Attention and concentration are normal. Mood and affect are normal and appropriate. General appearance and grooming are normal. Short and long-term memory are reasonable for conversation. The discs are sharp with positive venous pulsations bilaterally. There are no exudates, hemorrhages, or blood vessel changes seen. Pupils are 3 mm bilaterally and reactive to light left eye reacts more sluggishly than the right upper. Extraocular eye muscles are intact without nystagmus. Visual acuity and visual kohler seem normal grossly to confrontation. There are no deficits to sensation in the face in all 3 distributions of the fifth cranial nerve bilaterally. Corneal reflexes are positive bilaterally. Facial strength and symmetry was normal bilaterally. I see no facial droop. Hearing seems intact grossly to voice and finger rub bilaterally. Palate moves well without asymmetry. There is normal sternocleidomastoid and trapezius (shoulder shrug) strength bilaterally. Tongue is midline with good strength bilaterally. Neck has a full range of motion without discomfort. There are no cervical bruits bilaterally. There are no cranial or ocular bruits. Heart is without murmur. There is a regular rhythm and rate. Cervical, thoracic, and lumbar spine are nontender to palpation. Gait is narrow based, with good arm swing, turns, and stance. Balance is normal eyes open and she sways considerably with eyes closed. With outstretched arms there is no drift. There are no resting tremors. There are very mild postural and action tremors bilaterally. There is no ataxia with finger to nose testing. There is good facility in the hands. No other abnormal involuntary movements are noted. Motor strength is 5/5 diffusely in the arms bilaterally including deltoids, biceps, triceps, brachioradialis, wrist flexors and extensors, scaffold erector, and intrinsic hand muscles. Motor strength is 5/5 diffusely in the legs bilaterally including hip flexors, quadriceps, hamstrings, gastrocnemius, tibialis anterior, tibialis posterior, and Peroneii muscles bilaterally. Toe extensors are normal and there is good bulk in the extensor digitorum brevis muscles bilaterally. The limbs have good tone without rigidity or spasticity. There is no atrophy noted in the muscles. Muscle bulk is normal, there is no tenderness to palpation, no myotonia to percussion, and no fasciculations seen. Sensory examination is intact to touch and pin throughout all 4 limbs diffusely. Reflexes are 1/4 in the biceps, triceps, and quadriceps tendons bilaterally. Brachioradialis Achilles tendon reflexes are absent bilaterally. Toes are downgoing with plantar stimulation bilaterally. Peripheral pulses are present and of normal quality distally in all 4 limbs. There is no peripheral edema noted in the limbs. Results & Data Vital Signs (Past 12 Hours) Vital Signs Temp Pulse Resp BP Pulse Ox 08/18/18 09:11 79 20 138/89 95 08/18/18 07:07 36.9 C 71 16 124/86 96 08/18/18 03:01 36.8 C 79 16 116/74 94 08/17/18 23:25 37.5 C 75 18 138/86 95 Diagnostic Findings MRI OF THE BRAIN WITHOUT IV CONTRAST CLINICAL HISTORY: Transient ischemic attack. COMPARISON STUDY: CT of the brain dated 08/17/2018. MRI of the brain dated 11/22/2015. TECHNIQUE: MRI of the brain was performed utilizing various T1 and T2-weighted sequences in the axial, sagittal, and coronal planes. IV contrast was not administered for this examination. FINDINGS: Brain parenchyma: There is minimal subcortical and periventricular microan giopathic disease. There is no hemorrhage or mass effect. There is no restricted diffusion to suggest acute ischemia. Loco-white matter differentiation is preserved. No extra-axial fluid collection is seen. The cerebellar tonsils are normal in configuration. Ventricles, sulci, and cisterns: Normal in configuration. Pituitary and sella: Unremarkable. Intracranial vasculature: Normal flow voids are maintained at the skull base. Orbits: The bony orbits are grossly intact. Orbital contents are normal in appearance. Sinuses and mastoids: Clear. Calvarium: Unremarkable. Cervical cord: Partially visualized cervical spinal cord is normal in morphology and signal intensity. IMPRESSION: No acute intracranial abnormality. Electronically signed by: Juan Carlos Alonzo M.D. 08/17/2018 8:34 PM
[2018-08-18] MEDS ORDERED: OPTIRAY 320 125ml IV PRN (11:23)
--- NOTE | 2018-08-18 11:37 | CT Scan Report ---
CT ANGIOGRAPHY OF THE CHEST, PULMONARY EMBOLUS PROTOCOL CLINICAL HISTORY: recent travel; chest pain; evaluate for PE. COMPARISON STUDY: Chest CT July 19, 2012. Chest radiograph December 18, 2017. TECHNIQUE: Following IV administration of 118 mL of Optiray-320, helical axial images of the chest we re obtained utilizing the pulmonary embolus protocol. Maximal intensity projections and sagittal and coronal reformats were viewed on an independent 3D workstation. IV contrast was administered withou t complication. Automated exposure control was utilized for the study. A dose lowering technique wa s utilized adhering to the principles of ALARA. CT DOSE: 599.22 mGy.cm FINDINGS: No pulmonary emboli are identified. There is no evidence for thoracic aortic dissection. T he size of the heart is at the upper limits of normal. There is no pericardial effusion. Central airw ays are patent. No pneumothorax or pleural effusion is noted. No enlarged axillary, mediastinal or hi lar lymph nodes are present. There is no pneumomediastinum. No consolidation is identified to suggest pneumonia. Groundglass opacity suggest atelectasis. Bony thorax is unremarkable. There is probable f atty infiltration of the liver. IMPRESSION: 1. No pulmonary emboli identified. 2. No acute intrathoracic findings. 3. Probable fatty infiltration of the liver. Electronically signed by: Jayden Rapp M.D. 08/18/2018 11:36 AM
[2018-08-18] MEDS: ATORVASTATIN 20 MG TAB PO SCH (12:18)
[2018-08-18] MEDS: IPRATROPIUM BROMIDE/ALBUTEROL respimat INH INH SCH ×3 (15:18→20:44)
[2018-08-18] MEDS: [UNRECOGNIZED DRUG - OTHER] SCH ×2 (16:46→22:14)
[2018-08-18] MEDS: ENOXAPARIN INJ 40 MG/0.4 ML SYR SQ SCH (18:24)
--- NOTE | 2018-08-18 20:27 | Hospitalist Progress Note ---
Date of Service August 18, 2018 Assessment & Plan (1) TIA (transient ischemic attack): MRI brain neg for stroke. Presenting symptoms resolved and has had no recurrent symptoms. Cause of TIA uncertain. MRA head/neck w/o stenosis or other abnormality. Echo w/o thrombus or shunt. Tele w/o a.fib. Would recommend 30-day event monitor to be complete (r/o PAF). Seen by neuro - asa 81mg daily along with statin advised for secondary prevention. Speech, PT, OT evals completed. Appreciate neurology evaluation. Present on Admission?: Yes (2) Chest pain: Etiology uncertain. Due to recent trip to [place] I ordered CTA chest -- negative for PE. Troponin x 3 negative. EKG normal. Echo w/o WMA. Spoke with Dr Mccartney - no contraindication for stress test. Pt's mother with CAD and stents. Thus - NPO after MN tonight for stress test in AM. Pt agreeable. If stress test is negative - pulmonary? (mild wheeze on exam) anxiety? other? Present on Admission?: No (3) Type 2 diabetes mellitus: ADA diet. adequate control. resume PO meds at discharge (will need repeat Cr before resuming metformin). Present on Admission?: Yes (4) Hypothyroid: Continue thyroid replacement. TSH compensated. Present on Admission?: Yes (5) Dementia: Mild. Treated with Aricept. Seems to be at baseline. Apparently developed this post-concussion x 2. Present on Admission?: Yes (6) Anxiety: Consider dedicated meds - seems quite anxious. Anxiety could be playing a role in some symptoms but this is diagnosis of exclusion. Present on Admission?: Yes (7) Hyperlipidemia: In light of TIA -- start lipitor 20mg qam. Present on Admission?: Yes (8) DVT prophylaxis: Lovenox updated at bedside today stress test in AM if negative then d/c thereafter Subjective multiple visits to pt's room today. early this am pt's nurse called me that she had complained of sternal chest discomfort/tightness. EKG obtained - NSR, no ST changes. telemetry all night with NSR. toradol x 1 given with improvement of pain from 7/10 down to 3/10. during my assessment she stated that the pain was associated with mild dyspnea and headache. she reports having traveled to [place] by plane in late June and returning to [facility] on July 22. no swollen legs since the trip. has had at least 2 other episodes of chest discomfort since her trip; no pleuritic component; again usually associated with dyspnea and headache. no radiation of pain to arms, neck, jaw, etc. no burping / belching. no nausea. no emesis. no sweats w/ it. admits to considerable anxiety and stressors. also thinks she has had a sinus issue lately. no new neuro symptoms; all presenting neuro symptoms resolved. Review of Systems Constitutional: no fever and no chills Respiratory: as per Subjective / HPI, + cough and + dyspnea; no pain on inspiration and no wheezing Cardiovascular: as per Subjective / HPI and + chest pain; no radiating jaw, neck or arm pain, no orthopnea, no paroxysmal nocturnal dyspnea and no palpitations Gastrointestinal: no abdominal pain, no nausea and no vomiting Physical Exam Constitutional: well developed and well nourished; no acute distress and no altered mental status ENMT: external ear and nose normal, oropharynx normal Respiratory: no respiratory distress Auscultation: + wheezes (hint of - b/l); no diminished lung sounds, no rales and no rhonchi Cardiovascular: RRR, no murmur, no edema Heart Sounds: normal S1 and normal S2 Vessels: posterior tibial pulses present and dorsalis pedis pulses present; no JVD Chest (Breasts): Additional Comments: no reproducible chest wall pain Gastrointestinal (Abdomen): normal bowel sounds, soft, nontender, no hepatosplenomegaly Neurologic: no focal motor deficits Speech / Cognition: normal speech Motor/Sensory: normal movement Gait: no ataxic gait no facial droop Psychiatric: A+Ox3, euthymic affect Results & Data Vital Signs (Past 12 Hours) Vital Signs Temp Pulse Pulse Resp BP Pulse Ox 08/18/18 18:36 36.9 C 81 19 137/80 93 08/18/18 18:01 70 08/18/18 15:26 37.0 C 79 19 129/85 90 08/18/18 11:06 36.7 C 75 18 147/78 H 92 08/18/18 09:11 79 20 138/89 95 Laboratory Results Laboratory Results - last 24 hr 08/17/18 08/17/18 08/17/18 15:20 15:59 16:07 WBC RBC Hgb Hct MCV MCH MCHC RDW Std Deviation RDW Coeff of Mick Plt Count MPV Immature Gran % (Auto) Neut % (Auto) Lymph % (Auto) [place] % (Auto) Eos % (Auto) Baso % (Auto) Immature Gran # (Auto) Neut # (Auto) Lymph # (Auto) [place] # (Auto) Eos # (Auto) Baso # (Auto) Sodium Potassium Chloride Carbon Dioxide Anion Gap BUN Creatinine Est Cr Clr Drug Dosing Est GFR ( Amer) Est GFR (Non-Af Amer) BUN/Creatinine Ratio Glucose POC Glucose 99 Estimat Average Glucose 128 Hemoglobin A1c 6.1 H Calcium Troponin I Triglycerides Cholesterol LDL Cholesterol, Calc VLDL Cholesterol, Calc HDL Cholesterol Cholesterol/HDL Ratio Blood Type A Positive Antibody Screen POSITIVE A Antibody Identification Anti-M 08/17/18 08/18/18 08/18/18 20:46 07:19 07:28 WBC 6.21 RBC 4.87 Hgb 13.4 Hct 41.8 MCV 85.8 MCH 27.5 MCHC 32.1 RDW Std Deviation 47.3 H RDW Coeff of Mick 15.1 H Plt Count 214 MPV 10.0 Immature Gran % (Auto) 0.3 Neut % (Auto) 42.9 Lymph % (Auto) 42.0 [place] % (Auto) 9.8 Eos % (Auto) 4.2 Baso % (Auto) 0.8 Immature Gran # (Auto) 0.02 Neut # (Auto) 2.66 Lymph # (Auto) 2.61 [place] # (Auto) 0.61 H Eos # (Auto) 0.26 Baso # (Auto) 0.05 Sodium Potassium Chloride Carbon Dioxide Anion Gap BUN Creatinine Est Cr Clr Drug Dosing Est GFR ( Amer) Est GFR (Non-Af Amer) BUN/Creatinine Ratio Glucose POC Glucose 111 H 105 H Estimat Average Glucose Hemoglobin A1c Calcium Troponin I Triglycerides Cholesterol LDL Cholesterol, Calc VLDL Cholesterol, Calc HDL Cholesterol Cholesterol/HDL Ratio Blood Type Antibody Screen Antibody Identification 08/18/18 08/18/18 08/18/18 07:28 07:28 11:33 WBC RBC Hgb Hct MCV MCH MCHC RDW Std Deviation RDW Coeff of Mick Plt Count MPV Immature Gran % (Auto) Neut % (Auto) Lymph % (Auto) [place] % (Auto) Eos % (Auto) Baso % (Auto) Immature Gran # (Auto) Neut # (Auto) Lymph # (Auto) [place] # (Auto) Eos # (Auto) Baso # (Auto) Sodium 139 Potassium 4.2 Chloride 106 Carbon Dioxide 26 Anion Gap 7.0 BUN 15 Creatinine 0.87 Est Cr Clr Drug Dosing 78.6 Est GFR ( Amer) 81.0 Est GFR (Non-Af Amer) 69.9 BUN/Creatinine Ratio 17.4 Glucose 102 H POC Glucose 104 H Estimat Average Glucose Hemoglobin A1c Calcium 8.5 Troponin I < 0.015 Triglycerides 183 H Cholesterol 183 LDL Cholesterol, Calc 105 VLDL Cholesterol, Calc 37 HDL Cholesterol 41 Cholesterol/HDL Ratio 5 Blood Type Antibody Screen Antibody Identification 08/18/18 08/18/18 13:38 16:23 WBC RBC Hgb Hct MCV MCH MCHC RDW Std Deviation RDW Coeff of Mick Plt Count MPV Immature Gran % (Auto) Neut % (Auto) Lymph % (Auto) [place] % (Auto) Eos % (Auto) Baso % (Auto) Immature Gran # (Auto) Neut # (Auto) Lymph # (Auto) [place] # (Auto) Eos # (Auto) Baso # (Auto) Sodium Potassium Chloride Carbon Dioxide Anion Gap BUN Creatinine Est Cr Clr Drug Dosing Est GFR ( Amer) Est GFR (Non-Af Amer) BUN/Creatinine Ratio Glucose POC Glucose 130 H Estimat Average Glucose Hemoglobin A1c Calcium Troponin I < 0.015 Triglycerides Cholesterol LDL Cholesterol, Calc VLDL Cholesterol, Calc HDL Cholesterol Cholesterol/HDL Ratio Blood Type Antibody Screen Antibody Identification (1) Type 2 diabetes mellitus Diabetes mellitus penitentiary insulin use: without intermediate project manager use Diabetes mellitus complication status: without complication Qualified Code(s): E11.9 - Type 2 diabetes mellitus without complications (2) Hypothyroid Hypothyroidism type: acquired Qualified Code(s): E03.9 - Hypothyroidism, unspecified (3) Dementia Dementia type: unspecified type Dementia behavioral disturbance: without behavioral disturbance Qualified Code(s): F03.90 - Unspecified dementia without behavioral disturbance (4) Chest pain Chest pain type: unspecified Qualified Code(s): R07.9 - Chest pain, unspecified (5) Hyperlipidemia Hyperlipidemia type: mixed hyperlipidemia Qualified Code(s): E78.2 - Mixed hyperlipidemia
[2018-08-18] MEDS: DONEPEZIL HCL 10 MG TAB PO SCH (20:44)
[2018-08-18] MEDS: AMITRIPTYLINE HCL 50 MG TAB PO PRN (22:14)
[2018-08-18] MEDS: ACETAMINOPHEN 325 MG TAB PO PRN (23:31)
[2018-08-19] MEDS ORDERED: SODIUM CHLORIDE 0.65% NA SOLN 45 ML (OCEAN) ONE (03:37)
[2018-08-19] MEDS: ACETAMINOPHEN 325 MG TAB PO PRN ×2 (03:40→15:40)
[2018-08-19 05:46] LABS: Basophils # (auto) 0.04 K/uL (0-0.2); Basophils % (auto) 0.5 %; Eosinophils # (auto) 0.27 K/uL (0-0.5); Eosinophils % (auto) 3.5 %; Hematocrit (blood only) 41.8 % (37-47); Hemoglobin 13.8 g/dL (12.0-16.0); Immature Granulocytes # (auto) 0.01 K/uL (0.00-0.02); Immature Granulocytes % (auto) 0.1 %; Lymphocytes # (auto) 3.15 K/uL (1.2-3.4); Lymphocytes % (auto) 40.9 %; Mean Corpuscular Volume 86.4 fL (80-100); Monocytes # (auto) 0.83 K/uL (0.11-0.59); Monocytes % (auto) 10.8 %; Neutrophils % (auto) 44.2 %; Platelet Count 216 K/uL (130-400); RDW Coefficient of Variation 15.2 % (11.5-14.5); RDW Standard Deviation 47.9 fL (36.4-46.3); Red Blood Count 4.84 M/uL (4.2-5.4)
[2018-08-19 06:26] LABS: BUN Creatinine Ratio 19.5 (10-20); Calcium 8.6 mg/dl (8.5-10.1); Creatinine Clr Calc Pharmacy 75.2 ml/min; Est GFR (African American) 77.8; Est GFR (Non-African American) 67.1
[2018-08-19] MEDS: PANTOprazole 40 MG TAB PO SCH (06:34)
[2018-08-19] MEDS: LEVOTHYROXINE SODIUM 125 MCG TABLET PO SCH (06:34)
--- NOTE | 2018-08-19 07:54 | Neurology Progress Note ---
Date of Service August 19, 2018 Assessment & Plan (1) TIA (transient ischemic attack): Patient had an episode August 17 of word-finding difficulty/slurred speech, left facial droop, and blurry vision to the left. The symptoms have resolved and she is back to baseline neurologically. MRI of the brain did not show a stroke and shows (only) very minimal old small vessel ischemic changes. Overall, this is consistent with a TIA, involving the right hemisphere. It was likely very small vessel ischemic related. MR angiography of the head neck is unremarkable showing no obvious vessel anomalies. Echocardiogram was unremarkable and showed no change compared to February of 2015. Risk factors for stroke include elevated blood pressure, mildly elevated glucose, and dyslipidemia. She quit cigarette smoking in 2008. (2) Dementia: Patient has mild cognitive impairment, likely starting prior to her 2 concussions in 2016. She had some post concussive syndrome issues which have improved. Her memory is stable, however, there may be a little bit of progression over the last couple of years. She is on donepezil. Patient does have some history of anxiety and depression but there is no evidence of these being significant factors currently. (3) Benign essential tremor: Patient has mild postural and action tremor. This is consistent with a mild essential tremor. There is no signs of Parkinson's disease (no resting tremor, cogwheel rigidity, bradykinesia, or Parkinson's gait). 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 (4) Lumbar spinal stenosis: Patient has a history of lumbar spinal stenosis with left S1 radiculopathy. This gives her mild left foot drop which currently is a intermittent went fatigue. She is not having active spine disease currently. Recommendations: 1. Continue 81 milligram aspirin tablet daily. 2. Control blood pressure as you are doing keeping mean arterial pressure 95- 100. 3. Control glucose aiming for a hemoglobin A1c of less than 6.0. 4. Continue atorvastatin 20 milligrams daily. She would technically be a high- dose statin candidate but I think we should start off with a regular dose initially. 5. Continue donepezil 10 milligrams daily. 6. Increase activity as able. 7. I have no further neurologic testing or treatment recommendations to make at this time, but would be happy to follow this patient as an outpatient if she desires.. Overall, I spent a total of 25 minutes with this case including review of records, direct evaluation the patient at bedside, and discussion of the case with patient at bedside and Dr. Giang, including differential diagnosis and treatment. Subjective This morning, the patient tells me she slept well and has no headache. She has no vision problems, weakness or numbness in the limbs, speech issues, or confusi on. She does have a little bit of chest tightness centrally but there is no chest pain. She is breathing normally. A deep breath does not create pain. Blood pressure is 136/67. CBC this morning was unremarkable. Chem profile showed a glucose of 113 and was unremarkable. Vitamin B12 is pending. Echocardiogram showed minimal concentric LVH with an ejection fraction of 60-65 percent. There was no significant valvular pathology or source of emboli. There is no evidence of an ASD or PFO. There is no change compared to February of 2015. Physical Exam Physical Exam: She is awake and alert. Speech is without aphasia or dysarthria. Mood is normal and affect is appropriate. Thought processes are intact to conversation. Extraocular eye muscles are intact without nystagmus. There is no facial droop. Tongue is midline. With outstretched arms there is no drift. There is no resting tremor. There is minimal postural and action tremor this morning. Strength is symmetrical in limbs. Results & Data Vital Signs (Past 12 Hours) Vital Signs Temp Pulse Resp BP Pulse Ox 08/19/18 07:22 36.5 C 61 16 136/67 94 08/19/18 03:52 36.7 C 79 16 150/91 H 91 08/18/18 23:35 36.4 C L 84 16 154/86 H 95 (1) Dementia Dementia type: unspecified type Dementia behavioral disturbance: without behavioral disturbance Qualified Code(s): F03.90 - Unspecified dementia without behavioral disturbance
[2018-08-19] MEDS: INSULIN ASPART 100 UNITS/ML 3 ML PEN SC SCH ×2 (07:57→13:49)
[2018-08-19] MEDS: ATORVASTATIN 20 MG TAB PO SCH (07:58)
[2018-08-19] MEDS: BuPROPion SR 100 MG TABCR PO SCH (07:58)
[2018-08-19] MEDS: ASPIRIN 81 MG ECTAB PO SCH (07:59)
[2018-08-19] MEDS: IPRATROPIUM BROMIDE/ALBUTEROL respimat INH INH SCH ×3 (08:02→15:44)
[2018-08-19] MEDS ORDERED: LIOTHYRONINE SODIUM 25 MCG TAB PO SCH (09:00)
[2018-08-19] MEDS ORDERED: STROKE PATIENT DISCHARGE STA (14:00)
--- NOTE | 2018-08-19 14:28 | Pharmacy Report ---
Pharmacist Stroke Counseling - Date of Service August 19, 2018 - Scope: Pharmacy has been consulted to provide medication discharge counseling for this patient admitted with [ischemic stroke] [hemorrhagic stroke] [transient ischemic attack] as per the Pharmacist Discharge Counseling for Stroke Patients Protocol . - Medications on Discharge: Home Medications Medication Instructions Recorded Confirmed amitriptyline 50 mg PO HS PRN 12/18/17 08/17/18 bupropion HCl [Wellbutrin SR] 200 mg PO BID 12/18/17 08/17/18 donepezil [Aricept] 10 mg PO HS 12/18/17 08/17/18 levothyroxine [Synthroid] 125 mcg PO DAILY 12/18/17 08/17/18 liothyronine [Cytomel] 25 mcg PO Q OTHER DAY 12/18/17 08/17/18 metformin [Glucophage] 1,000 mg PO BIDM 12/18/17 08/17/18 aspirin [Aspir-81] 243 mg PO ONCE 08/17/18 08/17/18 clobetasol 1 applic TOPICAL DIRECTED 08/17/18 08/17/18 diclofenac sodium 50 mg PO TID PRN 08/17/18 08/17/18 empagliflozin [Jardiance] 10 mg PO QAM 08/17/18 08/17/18 naproxen sodium [Aleve] 220 - 440 mg PO DIRECTED PRN 08/17/18 08/17/18 omeprazole 40 mg PO DAILYBB 08/17/18 08/17/18 tramadol 50 - 100 mg PO Q6 PRN MDD MAX 8 08/17/18 08/17/18 TABS DAILY New Rx's Medication Instructions Recorded atorvastatin 20 mg PO QAM #30 tab 08/19/18 ipratropium-albuterol [Combivent 1 puff INHALATION QIDR #1 inhaler 08/19/18 Respimat] - Action: The above medications, specifically ones for stroke treatment/prophylaxis, have been reviewed in detail with the patient and/or patient student services representative(s) prior to discharge. This includes indication, common adverse reactions, drug interactions, and medication administration. Medication counseling has been employed using the teach-back method to ensure understanding. - Outcome: The patient and/or patient student services representative(s) have demonstrated understanding of the medications. Please note, they are aware that the pharmacist will call them within 72 hours post-discharge to confirm that the appropriate medications are being taken and answer any further medication related questions the patient might have at that time. Contact information Individual to be contacted: Saqib or Ratna Relationship to patient (if applicable): and pt Phone number: [phone] Best time to call: 12-02 Additional comments: Spoke with pt and bedside. d/w them potential side effects, indication, common drug-drug interactions associated with lipitor. All questions were answered. Thank you for allowing pharmacy to be involved in the care of this patient. Please call [phone] with any additional questions
[2018-08-19] MEDS: [UNRECOGNIZED DRUG - OTHER] SCH ×2 (15:36→15:44)
--- NOTE | 2018-08-21 11:23 | Pharmacy Report ---
Pharmacist Post D/C Phone Note - Phone Note: Date of phone call: August 21, 2018. Individual with whom pharmacist spoke to: RIP Willy QUINTANILLA The following questions were reviewed during the phone call with responses listed below each: Can you tell me the medications that you are currently taking as well as when and how you take each medication? -See Table Below When have you missed any doses of your medications? - none - pt is taking atorvastatin, aspirin, and combivent as prescribed What side effects are you having from your medications, specifically, the new medications you were started on? - none What questions do you have about your medications? - none What problems are you having obtaining your medications? - none When is your next appointment with your primary care doctor? - Tomorrow at 2pm Additional comments: - Patient's voice is slightly lost and raspy on the phone, she's trying to not go on prednisone, but will follow- up with PCP tomorrow regarding her bronchial symptoms. As per the Pharmacist Discharge Counseling for Stroke Patients Protocol, this phone call has been completed within 72 hours of discharge. Thank you for allowing us to be involved in the care of this patient. - Home Medications: Home Medications Medication Instructions Recorded Confirmed amitriptyline 50 mg PO HS PRN 12/18/17 08/17/18 bupropion HCl [Wellbutrin SR] 200 mg PO BID 12/18/17 08/17/18 donepezil [Aricept] 10 mg PO HS 12/18/17 08/17/18 levothyroxine [Synthroid] 125 mcg PO DAILY 12/18/17 08/17/18 liothyronine [Cytomel] 25 mcg PO Q OTHER DAY 12/18/17 08/17/18 Jardiance 10 mg PO QAM 08/17/18 08/17/18 clobetasol 1 applic TOPICAL DIRECTED 08/17/18 08/17/18 diclofenac sodium 50 mg PO TID PRN 08/17/18 08/17/18 naproxen sodium [Aleve] 220 - 440 mg PO DIRECTED PRN 08/17/18 08/17/18 omeprazole 40 mg PO DAILYBB 08/17/18 08/17/18 tramadol 50 - 100 mg PO Q6 PRN MDD MAX 8 08/17/18 08/17/18 TABS DAILY New Rx's Medication Instructions Recorded aspirin [Aspir-81] 81 mg PO DAILY #90 tab 08/19/18 atorvastatin 20 mg PO QAM #30 tab 08/19/18 ipratropium-albuterol [Combivent 1 puff INHALATION QIDR #1 inhaler 08/19/18 Respimat]
--- NOTE | 2018-08-26 07:38 | Discharge Summary ---
Date of Service date of admission - August 17, 2018 date of discharge - August 19, 2018 Admission HPI Per Admitting Provider 63-year-old female who awoke this morning with a headache and she had mild slurred speech and mild left facial droop. She went to an urgent care center and was evaluated and sent to [facility] for evaluation. Her symptoms were resolving by the time of arrival; she no longer had a left facial droop or dysarthria. Her left pupil is slightly sluggish and she says she has some blurred vision. She denies any amaurosis fugax. Head CT scan is unremarkable. She will be treated as a resolving TIA and placed on observation with telemetry. Brain MRI/MRA and neck MRA will be obtained. She has received aspirin therapy. Thyroid status will be checked since she takes thyroid replacement medications. Principal Diagnosis TIA Discharge Exam Constitutional well developed and well nourished; no acute distress and no altered mental status ENMT external ear and nose normal, oropharynx normal Respiratory no respiratory distress Auscultation: + wheezes (hint of - b/l); no diminished lung sounds, no rales and no rhonchi Cardiovascular RRR, no murmur, no edema Heart Sounds: normal S1 and normal S2 Vessels: posterior tibial pulses present and dorsalis pedis pulses present; no JVD Gastrointestinal (Abdomen) normal bowel sounds, soft, nontender, no hepatosplenomegaly Neurologic no focal motor deficits Speech / Cognition: normal speech Motor/Sensory: normal movement Gait: no ataxic gait Psychiatric A+Ox3, euthymic affect Discharge Data Allergies Allergy/AdvReac Type Severity Reaction Status Date / Time amantadine Allergy Intermediate GI UPSET Verified 08/22/18 14:13 doxycycline Allergy Intermediate GI UPSET Verified 08/22/18 14:13 Consultations Neurology - Alex Mccartney MD PT, OT Speech Therapy Ordered Studies 1. CT head - normal. 2. MRA head/neck - normal. 3. MRI brain - normal. No acute stroke. 4. CTA chest - no PE; no pneumonia; no edema; fatty liver. 5. echocardiogram - EF 60-65%; no regional wall motion abnormalities; normal valvular function. 6. exercise stress echocardiogram - no inducible ischemia / normal. Hospital Course (1) TIA (transient ischemic attack): MRI brain negative for stroke. Thus presenting symptoms were most consistent with TIA. Extensive TIA work-up was normal. Echo did not show thrombus or shunt. Tele was normal and without a.fib. Seen by neurology, Dr Mccartney. He recommended aspirin 81mg daily along with statin for secondary prevention. Underwent speech, PT, OT evaluations - outpatient therapy not advised. She did not have any recurrent neurological symptoms while hospitalized. Would recommend 30-day event monitor to be complete (r/o PAF) since a specific cause of her TIA was not found. (2) Chest pain: Due to recent trip to [place] a CTA chest was completed and this was negative for PE. Troponin x 3 negative. EKG normal. Echo w/o WMA. Spoke with Dr Mccartney - no contraindication for stress test. Pt's mother with CAD and stents. Stress echocardiogram was NORMAL / NEGATIVE for inducible ischemia. She did have chest and throat tightness along with dyspnea during the stress. Thus, her chest symptoms may have been secondary to an acute bronchitis. She did have intermittent mild wheezes on exam during her stay. Given inhaler at discharge and asked to follow-up with PCP for this. (3) Type 2 diabetes mellitus: ADA diet. adequate control. resume PO meds at discharge (will need repeat Creatinine before resuming metformin). (4) Hypothyroid: Continue thyroid replacement. TSH compensated. (5) Dementia: Mild. Treated with Aricept. Seemed to be at baseline during the stay. Apparently developed this following 2 head injuries (concussions). (6) Anxiety: Seemed quite anxious during the stay. Anxiety could have been playing a role in some of her symptoms (chest symptoms) but uncertain. (7) Hyperlipidemia: In light of TIA -- started lipitor 20mg qam. LDL was 105. Total Time Total Time Spent Total Time Spent (In Minutes): 45 Total Time Includes: Examination of the Patient, Discharge Planning, Medication Reconciliation and Communication With Other Providers Discharge Plan Discharge Items Patient Disposition: Home - Self-Care Reason For Visit: SUSPECTED TIA Discharge Diagnosis: TIA (transient ischemic attack) - no stroke found. Probable early bronchitis. NO EVIDENCE OF HEART ATTACK. NEGATIVE STRESS TEST. Discharge Goals: Diagnostic testing Activity: As commented below Activity Comment: please take it easy next 3-4 days, then gradually increase your activities Exercise/Sports: Gradually increase as tolerated Driving/Machine Use: Resume 1 day after discharge Non-emergency contact: Primary Care Provider Call non-emergency contact if: you have any medication questions, your symptoms worsen, your pain is not controlled and your temperature is above 100.5 Follow-up/Referrals: Yusef Land III, CRNP [Primary Care Provider] - 08/29/18 3:20 pm (No upcoming appointments available with Dr. Yusef Land. Follow up appointment has been made with Melisa Beltran NP on Tuesday 08/29 @ 3:20pm. Please call the office if you have any questions or need to reschedule. [phone].) Diet: Carb Consistent or DM2 Addtl Provider Instructions: From Clive Giang - hospitalist - You were admitted for several neurological symptoms (droopy face, etc) that ultimately resolved. You underwent a work-up to rule out stroke and fortunately the MRI of the brain did NOT show any evidence of stroke. The other tests did not show blocked arteries of the head or neck. Your echocardiogram (heart ultrasound) was normal. At this time we would categorize your event as a "TIA" (transient ischemic attack). This is NOT a stroke. But, it is a risk factor for future stroke. The neurologist is recommending - * aspirin 81mg daily for prevention of future TIA/stroke * cholesterol medication (lipitor/atorvastatin) once a day In the midst of your stay you complained of chest tightness/pain. We performed a CAT scan of the lungs -- this did NOT show blood clots or pneumonia. We also performed a stress test and this was NORMAL. Blood work did not show evidence of heart attack. The available information would suggest your chest symptoms were NOT from a heart problem. Rather, it is likely due to a bronchial illness. For the suspected bronchitis please - * take combivent inhaler 1 puff four times a day * take xqda-swa-[id number] mucinex 1200mg twice a day * if symptoms worsen you would need to see your family doctor for additional medications Lastly, since you received CAT scan IV contrast, you have to hold your metformin for now. Please have a blood draw for your kidney function in 2 days. This can be done at the hospital or any of the [facility] clinics. If the blood work is ok you can resume the metformin then. Follow-up -- * see Yusef Land as scheduled * wear the heart monitor for your heart for 30 days; it will be mailed to your home within 5-7 days Additional instructions -- Risk Factors for Stroke: You can reduce your chances of stroke by working with your medical provider to adopt a healthy lifestyle. Some specific ways to lower your chance of stroke are: * If you are a smoker, now is the time to stop smoking cigarettes * If you are diabetic, improve the control of your blood sugars * Avoid excessive amounts of alcohol * Control high blood pressure * Lose weight if you are overweight * Be sure to lead an active lifestyle * Eat a healthy diet low in salt, cholesterol and fat You should know about other risk factors for stroke that you are unable to control. These include: * Age 55 years or older * Male gender * Certain racial groups: , or / * Family History of Stroke, Mini stroke or Heart Attack * Sickle Cell Disease Follow Up: It is important for you to keep your follow up appointments with your medical provider. Who to Call and When: Medical Emergencies: Call 911 immediately if you experience any of the following warning signs and symptoms of Stroke: * Sudden numbness or weakness of the face, arm or leg, especially on one side of the body * Sudden confusion, trouble speaking or understanding * Sudden trouble seeing in one or both eyes * Sudden trouble walking, dizziness, loss of balance or coordination * Sudden severe headache with no cause Do not delay calling 911 if you experience any warning signs or symptoms of a stroke. Delay in seeking medical attention may affect what treatments can be given to you. . Prescriptions: New atorvastatin 20 mg Tablet 20 mg PO QAM Qty: 30 RF: 5 Combivent Respimat 20-100 mcg/actuation Mist 1 puff inhalation QIDR Qty: 1 RF: 0 Continued clobetasol 0.05 % Cream 1 applic TOPICAL DIRECTED RF: 0 omeprazole 40 mg Capsule,Delayed Release(Dr/Ec) 40 mg PO DAILYBB RF: 0 tramadol 50 mg Tablet 50 - 100 mg PO Q6 MDD MAX 8 TABS DAILY PRN (Reason: Pain) RF: 0 naproxen sodium [Aleve] 220 mg Tablet 220 - 440 mg PO DIRECTED PRN (Reason: Pain) RF: 0 Jardiance 10 mg Tablet 10 mg PO QAM RF: 0 liothyronine [Cytomel] 25 mcg tablet 25 mcg PO Q OTHER DAY RF: 0 donepezil [Aricept] 10 mg tablet 10 mg PO HS RF: 0 amitriptyline 50 mg tablet 50 mg PO HS PRN (Reason: Sleep) RF: 0 levothyroxine [Synthroid] 125 mcg tablet 125 mcg PO DAILY RF: 0 bupropion HCl [Wellbutrin SR] 200 mg tablet sustained-release 12 hr 200 mg PO BID RF: 0 Changed aspirin [Aspir-81] 81 mg Tablet,Delayed Release (Dr/Ec) 81 mg PO DAILY Qty: 90 RF: 3 Discontinued metformin [Glucophage] 1,000 mg tablet 1,000 mg PO BIDM RF: 0 No Action diclofenac sodium 50 mg tablet,delayed release (DR/EC) 50 mg PO TID PRN (Reason: Pain) Qty: 90 RF: 5 Stand-Alone Forms: Medications to Prevent Stroke, [facility]/Other Patient Handouts: Blood Sugar Check, ED Transient Ischemic Attack Discharge Orders: Discharge Order (Routine); Ordered 08/19/18 Ordered By: Clive Giang Admission Data Admit Date/Time: 08/17/18 18:02 Attending Provider: Clive Giang Admit Provider: Salvador Teresa Primary Care Provider: Yusef Land III Other Providers: Salvador Teresa ; Clay Thomas ; Hunter Mccartney III ; Sheela Jenkins ; Javier Ramirez Service: Telemetry Other Interventions: Discharge Summary Assessment (RN) Last Done: 08/19/18 13:54 Pending Studies at Discharge: No DC Date/Time DO NOT enter until pt leaves facility: 08/19/18 16:00
== END 2018-08-19 16:00 | disposition home or self-care (01) ==
LOC: 2S 15:12 → ED 15:12 → SUATTDRO 18:02 → 2S 18:07
DX: F32.9 Major depressive disorder, single episode, unspecified; G47.00 Insomnia, unspecified; Z79.84 Long term (current) use of oral hypoglycemic drugs; M19.90 Unspecified osteoarthritis, unspecified site; Z82.49 Family history of ischemic heart disease and other diseases of the circulatory system; Z79.899 Other long term (current) drug therapy; E03.9 Hypothyroidism, unspecified; G45.9 Transient cerebral ischemic attack, unspecified; F03.90 Unspecified dementia, unspecified severity, without behavioral disturbance, psychotic disturbance, mood disturbance, and anxiety; E11.9 Type 2 diabetes mellitus without complications; Z79.82 Long term (current) use of aspirin

== ENCOUNTER 2019-10-30 11:54 | Observation (INO) ==
[2019-10-30] MEDS ORDERED: ASPIRIN CHEW 324 MG PO STA (12:17)
--- NOTE | 2019-10-30 12:24 | Emergency Department Note ---
Impression & Plan Chest pain, HTN (hypertension), Hypoxia ED Provider Note NAME: RIP QUINTANILLA AGE: 64 SEX: F : 1955 ARRIVES VIA: Walk-In INFORMANT: Patient ED PROVIDER(S): Chay Shell DO CHIEF COMPLAINT: Chest heaviness HPI: Patient is a 64-year-old female with a past medical history of diabetes, hyperlipidemia, and TIA who presents the ER for chest pressure. She notes that this started Saturday night. It started around 10:00 and significantly improved around 4 AM. She was able to go back to bed. She did feel her heart racing with this. She notes that since then she has had this chest pressure. She notes that the pain does go up to her left shoulder at this time. She does not feel her heart racing now. She notes that she does sweat when he gets to be d. She notes that she does not want to eat in her stomach gets upset when she eats. Denies any vomiting. Mother does have a history of heart disease. Pain is currently a 7 out of 10. No other exacerbating or remitting factors that she can think of. Admits to previous bowel surgery secondary to small bowel obstruction. ROS: See above HPI for pertinent positives & negatives. A total of 10 systems reviewed and were otherwise negative. PAST MEDICAL HISTORY:See Below PAST SURGICAL HISTORY:See Below FAMILY HISTORY:See Below SOCIAL HISTORY:See Below HOME MEDICATIONS:See Below ALLERGIES:See Below VITALS:See Below PHYSICAL EXAMINATION: GENERAL: Sitting up in bed, alert, well appearing, well nourished, no distress, non-toxic EYE EXAM: normal conjunctiva. OROPHARYNX: no exudate, no erythema, lips, buccal mucosa, and tongue normal and mucous membranes are moist NECK: supple, no nuchal rigidity, no adenopathy, non-tender CHEST: No reproducible anterior sternal chest pain LUNGS: Clear to auscultation. Normal chest wall mechanics HEART: no murmurs, S1 normal and S2 normal ABDOMEN: abdomen soft, non-tender, normo-active bowel sounds, no masses, no rebound or guarding. SKIN: no rashes and no bruising UPPER EXTREMITIES: upper extremities are grossly normal. LOWER EXTREMITIES: No pitting edema. Calves are equal bilateral NEURO EXAM: Normal sensorium, cranial nerves II-XII grossly intact, normal speech, no gross weakness of arms, no gross weakness of legs. MEDICAL DECISION MAKING: Patient is a 64-year-old female with a past medical history of TIA and type 2 diabetes and a previous smoker for chest heaviness. She notes it goes to her left arm. Has been waxing and waning since Saturday. Denies any shortness of breath. Resolved with nitro. IV was established blood work was obtained. She is given aspirin as well. Labs show no significant leukocytosis or anemia. INR unremarkable. D-dimer was negative. She was slightly hypoxic at 91 to 88% I do favor that this is likely secondary to her smoking history with a negative d- dimer. BMP was unremarkable as well as she had a mild elevation in her LFTs. Troponin was negative. Lipase was normal. Chest x-ray was unremarkable and EKG was unchanged from previous. She was updated bedside. Discussed with the hospitalist admitted for further work-up. Hypoxia was low fairly transient in the ER as I titrated her down off nasal cannula and she did well. Triage Nursing notes reviewed. Prior medical records reviewed Vital Signs: reviewed and remarkable for hypertensive Differential diagnosis: Differential diagnoses includes but is not limited to acute coronary syndrome, myocardial infarction, pericarditis, pulmonary embolus, aortic dissection, pneumonia, pneumothorax, musculoskeletal, shingles, esophageal. ER treatment provided: See below Diagnostics interpreted by me: ECG: Sinus rhythm rate 84 Normal axis No PVCs Normal QTC No significant change from previous EKG Cardiac Monitoring: An order was placed for continuous cardiac monitoring. The monitor shows a rate of 88 with sinus rhythm. Laboratory studies: As stated above and show below. Imaging studies: Portable AP upright 1 view of the chest shows no focal infiltrate or pneumothorax Consultation(s): Discussed with Dr. Filippo Broussard for admission. ED COURSE: Procedures: none Critical Care: None Past Med/Surg History Medical History (Updated 10/30/19 @ 19:18 by Chay Shell DO) Abdominal muscle defects Anxiety Benign essential tremor Cellulitis, leg Concussion 2017 Dementia Depression Deterioration of memory Diabetes Executive function deficit Exertional chest pain Fall GERD (gastroesophageal reflux disease) Headache Hematoma of leg Hypertriglyceridemia Hypothyroid Insomnia Left foot drop Lumbar spinal stenosis Nausea Osteoarthrosis Other intervertebral disc degeneration, lumbar region Pre-diabetes Retinal tear of left eye Shortness of breath Stenosis of lumbosacral spine TIA (transient ischemic attack) Transaminitis Type 2 diabetes mellitus Surgical History (Updated 10/30/19 @ 14:20 by Clive Giang) H/O cataract extraction bilateral H/O resection of small bowel Status post left partial knee replacement Status post right partial knee replacement Family History (Updated 10/30/19 @ 14:24 by Clive Giang) Mother Coronary heart disease stents Father , age 49 of brain cancer Brain cancer Brother Throat cancer S/p nephrectomy for RCC Brother Myocardial infarction Denies family history of Ovarian cancer Prostate cancer Social History (Updated 10/30/19 @ 14:25 by Clive Giang) Smoking Status: Former smoker packs per day: 0.5; Years Smoked: 10; Smoking End Date: 2008; Second Hand Exposure: No; Do You Dip or Chew Tobacco: No; Tobacco Cessation Education Requested by Patient: No Hx Alcohol Use: Yes Alcohol type: wine Alcohol Intake Frequency: 4 or More x per/Week Alcohol Intake Frequency Comment: 2 glasses each time Hx Substance Use: No Preferred Language: Azeri Communication Ability: Effective Visual Impairment: No Limitations Senior [employer] Net Developer Required: No Beliefs That Will Affect Care: None marital status: Current Living Situation: Spouse current occupational status: retired current occupation: Retired 2016 from [employer] How many Children do You have: 2 Other Information That Helps Us Care for You: No 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 Feels Safe at Home: Yes Allergies Allergies Allergy/AdvReac Type Severity Reaction Status Date / Time amantadine Allergy Intermediate GI UPSET Verified 10/30/19 14:11 doxycycline Allergy Intermediate GI UPSET Verified 10/30/19 14:11 Home Meds Home Medications Medication Instructions Recorded Confirmed aspirin [Aspir-81] 81 mg PO QAM 10/30/19 10/30/19 dulaglutide [Trulicity] 0.75 mg SQ SA@0800 10/30/19 10/30/19 duloxetine 30 mg PO QAM 10/30/19 10/30/19 levothyroxine [Synthroid] 125 mcg PO QAM 10/30/19 10/30/19 liothyronine [Cytomel] 25 mcg PO QAM 10/30/19 10/30/19 Previous Rx's Medication Instructions Recorded celecoxib 100 mg capsule 100 mg PO BID #180 cap 06/24/19 bupropion HCl 200 mg tablet,12 hr 200 mg PO BID #180 ea 05/19/20 sustained-release atorvastatin 20 mg tablet 20 mg PO QAM #90 tab 09/03/19 donepezil 10 mg tablet 10 mg PO HS #90 tab 09/03/19 metformin 1,000 mg tablet 1,000 mg PO BID #180 tab 10/09/19 Results & Data (ED) Vital Signs Vital Signs - 24 hr 10/30/19 09:30 10/30/19 11:57 10/30/19 12:05 Temperature 37 C Temperature Source Oral Pulse Rate 86 93 H 88 Pulse Rate from SpO2 Sensor Respiratory Rate 14 20 23 Blood Pressure 130/67 160/84 H Blood Pressure Mean 82 109 Pulse Oximetry 92 Oxygen Delivery Method Room Air Sepsis Recent Fever Within 48 Hours No Sepsis New/Unexplained Change in Mental Status No Sepsis Action Taken by Nursing No Action Required Oxygen Flow Rate - Titration Pulse Oximetry Post Tiitration 10/30/19 12:28 10/30/19 12:30 10/30/19 12:35 Temperature Temperature Source Pulse Rate 82 87 87 Pulse Rate from SpO2 Sensor 82 87 88 Respiratory Rate 17 23 20 Blood Pressure 147/96 H 127/101 H 127/71 Blood Pressure Mean 125 106 82 Pulse Oximetry 96 94 93 Oxygen Delivery Method Sepsis Recent Fever Within 48 Hours Sepsis New/Unexplained Change in Mental Status Sepsis Action Taken by Nursing Oxygen Flow Rate - Titration Pulse Oximetry Post Tiitration 10/30/19 12:43 10/30/19 12:47 Temperature Temperature Source Pulse Rate 83 Pulse Rate from SpO2 Sensor 84 Respiratory Rate 14 Blood Pressure 122/75 Blood Pressure Mean 96 Pulse Oximetry 93 93 Oxygen Delivery Method Room Air Sepsis Recent Fever Within 48 Hours Sepsis New/Unexplained Change in Mental Status Sepsis Action Taken by Nursing Oxygen Flow Rate - Titration 2 Pulse Oximetry Post Tiitration 96 Laboratory Data Result diagrams: 10/30/19 12:10 10/30/19 12:10 Lab Results 10/30/19 10/30/19 10/30/19 Range/Units 12:10 12:10 12:10 WBC 9.66 (4.8-10.8) K/uL RBC 5.12 (4.2-5.4) M/uL Hgb 15.1 (12.0-16.0) g/dL Hct 45.6 (37-47) % MCV 89.1 (80-100) fL MCH 29.5 (25-34) pg MCHC 33.1 (32-36) g/dL RDW Std Deviation 47.9 H (36.4-46.3) fL RDW Coeff of Mick 14.8 H (11.5-14.5) % Plt Count 303 (130-400) K/uL MPV 10.4 (7.4-10.4) fL Immature Gran % (Auto) 0.5 % Neut % (Auto) 50.8 % Lymph % (Auto) 37.5 % Letcher % (Auto) 8.8 % Eos % (Auto) 2.0 % Baso % (Auto) 0.4 % Neut # (Auto) 4.91 (1.4-6.5) K/uL Lymph # (Auto) 3.62 H (1.2-3.4) K/uL Letcher # (Auto) 0.85 H (0.11-0.59) K/uL Eos # (Auto) 0.19 (0-0.5) K/uL Baso # (Auto) 0.04 (0-0.2) K/uL Immature Gran # (Auto) 0.05 H (0.00-0.02) K/uL ESR (0-21) mm/hr PT 10.9 (9.0-12.0) Seconds INR 1.0 (0.9-1.1) APTT 25.4 (21.0-31.0) Seconds PTT Ratio 0.9 D-Dimer 420 (0-500) ug/L FEU Sodium 140 (136-145) mmol/L Potassium 4.1 (3.5-5.1) mmol/L Chloride 106 (98-107) mmol/L Carbon Dioxide 26 (21-32) mmol/L Anion Gap 8.0 (3-11) BUN 16 (7-18) mg/dl Creatinine 0.91 (0.6-1.2) mg/dl Est Cr Clr Drug Dosing 71.6 ml/min Est GFR ( Amer) 76.2 Est GFR (Non-Af Amer) 65.7 BUN/Creatinine Ratio 17.8 (10-20) Glucose 127 H (70-99) mg/dl Calcium 9.1 (8.5-10.1) mg/dl Total Bilirubin 1.0 (0.2-1) mg/dl AST 67 H (15-37) U/L ALT 120 H (12-78) U/L Alkaline Phosphatase 74 (45-117) U/L Troponin I < 0.015 (0-0.045) ng/ml C-Reactive Protein (0-0.29) mg/dl Total Protein 7.4 (6.4-8.2) gm/dl Albumin 3.9 (3.4-5.0) gm/dl Globulin 3.5 (2.5-4.0) gm/dl Albumin/Globulin Ratio 1.1 (0.9-2) Lipase 201 (73-393) U/L 10/30/19 10/30/19 Range/Units 12:10 12:10 WBC (4.8-10.8) K/uL RBC (4.2-5.4) M/uL Hgb (12.0-16.0) g/dL Hct (37-47) % MCV (80-100) fL MCH (25-34) pg MCHC (32-36) g/dL RDW Std Deviation (36.4-46.3) fL RDW Coeff of Mick (11.5-14.5) % Plt Count (130-400) K/uL MPV (7.4-10.4) fL Immature Gran % (Auto) % Neut % (Auto) % Lymph % (Auto) % Letcher % (Auto) % Eos % (Auto) % Baso % (Auto) % Neut # (Auto) (1.4-6.5) K/uL Lymph # (Auto) (1.2-3.4) K/uL Letcher # (Auto) (0.11-0.59) K/uL Eos # (Auto) (0-0.5) K/uL Baso # (Auto) (0-0.2) K/uL Immature Gran # (Auto) (0.00-0.02) K/uL ESR 18 (0-21) mm/hr PT (9.0-12.0) Seconds INR (0.9-1.1) APTT (21.0-31.0) Seconds PTT Ratio D-Dimer (0-500) ug/L FEU Sodium (136-145) mmol/L Potassium (3.5-5.1) mmol/L Chloride (98-107) mmol/L Carbon Dioxide (21-32) mmol/L Anion Gap (3-11) BUN (7-18) mg/dl Creatinine (0.6-1.2) mg/dl Est Cr Clr Drug Dosing ml/min Est GFR ( Amer) Est GFR (Non-Af Amer) BUN/Creatinine Ratio (10-20) Glucose (70-99) mg/dl Calcium (8.5-10.1) mg/dl Total Bilirubin (0.2-1) mg/dl AST (15-37) U/L ALT (12-78) U/L Alkaline Phosphatase (45-117) U/L Troponin I (0-0.045) ng/ml C-Reactive Protein < 0.29 (0-0.29) mg/dl Total Protein (6.4-8.2) gm/dl Albumin (3.4-5.0) gm/dl Globulin (2.5-4.0) gm/dl Albumin/Globulin Ratio (0.9-2) Lipase (73-393) U/L Administered Medications Insulin Aspart (Insulin Aspart 100 Units/Ml 3 Ml Pen) 0 units SC ACHS [facility] Stop: 11/29/19 16:29 Last Admin: 10/30/19 17:35 Dose: Not Given Documented by: [id number] Triamcinolone Acetonide (Triamcinolone Acet Nasal [place] 10.8ml Btl) 2 sprays LILLIE DAILY [facility] Stop: 11/29/19 16:29 Last Admin: 10/30/19 17:38 Dose: Not Given Documented by: [id number] Discontinued Medications Aspirin (Aspirin Chew 324 Mg) 324 mg PO NOW STA Stop: 10/30/19 12:18 Last Admin: 10/30/19 12:29 Dose: 324 mg Documented by: [id number] Sodium Chloride (Nss) 500 mls @ 999 mls/hr IV .Q31M CARLA Stop: 10/30/19 13:00 Last Infusion: 10/30/19 14:03 Dose: 0 mls/hr Documented by: [id number] Admin: 10/30/19 12:32 Dose: 999 mls/hr Documented by: [id number] Nitroglycerin (Nitroglycerin Sl 0.4 Mg/Tab Tab) 0.4 mg SL UD PRN PRN Reason: Chest Pain Stop: 11/29/19 12:16 Last Admin: 10/30/19 12:51 Dose: 0.4 mg Documented by: [id number] Admin: 10/30/19 12:44 Dose: 0.4 mg Documented by: [id number] Admin: 10/30/19 12:30 Dose: 0.4 mg Documented by: [id number] Discharge Plan Visit Data Chief Complaint: Back Injury/Pain Stated Complaint: AFIB ED Provider: Chay Shell Discharge Problem: Chest pain, HTN (hypertension), Hypoxia Patient Disposition: Admitted As Inpatient Discharge Instructions Interventions: ED Discharge Assessment Last Done: 10/30/19 15:23 Discharge Problem: Chest pain Qualifiers: Chest pain type: unspecified Qualified Code(s): R07.9 - Chest pain, unspecified HTN (hypertension) Qualifiers: Hypertension type: unspecified Qualified Code(s): I10 - Essential (primary) hypertension
[2019-10-30] MEDS ORDERED: SODIUM CHLORIDE 0.9% 500 ML IV SCH (12:30)
[2019-10-30] MEDS: NITROGLYCERIN SL 0.4 MG/TAB TAB SL PRN ×3 (12:30→12:51)
[2019-10-30 12:35] LABS: Basophils # (auto) 0.04 K/uL (0-0.2); Basophils % (auto) 0.4 %; Eosinophils # (auto) 0.19 K/uL (0-0.5); Hematocrit (blood only) 45.6 % (37-47); Hemoglobin 15.1 g/dL (12.0-16.0); Immature Granulocytes # (auto) 0.05 K/uL (0.00-0.02); Immature Granulocytes % (auto) 0.5 %; Lymphocytes # (auto) 3.62 K/uL (1.2-3.4); Lymphocytes % (auto) 37.5 %; Mean Corpuscular Hemoglobin 29.5 pg (25-34); Mean Corpuscular Hgb Conc 33.1 g/dL (32-36); Mean Corpuscular Volume 89.1 fL (80-100); Mean Platelet Volume 10.4 fL (7.4-10.4); Monocytes # (auto) 0.85 K/uL (0.11-0.59); Monocytes % (auto) 8.8 %; Neutrophils # (auto) 4.91 K/uL (1.4-6.5); Neutrophils % (auto) 50.8 %; Platelet Count 303 K/uL (130-400); RDW Coefficient of Variation 14.8 % (11.5-14.5); RDW Standard Deviation 47.9 fL (36.4-46.3); Red Blood Count 5.12 M/uL (4.2-5.4); White Blood Count 9.66 K/uL (4.8-10.8)
[2019-10-30 12:51] LABS: Alanine Aminotransferase 120 U/L (12-78); Albumin Level 3.9 gm/dl (3.4-5.0); Aspartate Aminotransferase 67 U/L (15-37); BUN Creatinine Ratio 17.8 (10-20); Blood Urea Nitrogen 16 mg/dl (7-18); Calcium 9.1 mg/dl (8.5-10.1); Carbon Dioxide 26 mmol/L (21-32); Chloride 106 mmol/L (98-107); Creatinine Clr Calc Pharmacy 71.6 ml/min; Est GFR (African American) 76.2; Est GFR (Non-African American) 65.7; Glucose 127 mg/dl (70-99); Lipase 201 U/L (73-393); Potassium 4.1 mmol/L (3.5-5.1); Sodium 140 mmol/L (136-145)
[2019-10-30 12:56] LABS: Albumin Globulin Ratio 1.1 (0.9-2); Alkaline Phosphatase 74 U/L (45-117); Globulin 3.5 gm/dl (2.5-4.0); Total Protein 7.4 gm/dl (6.4-8.2); Troponin I < 0.015 ng/ml (0-0.045)
[2019-10-30 12:58] LABS: D Dimer 420 ug/L FEU (0-500); Partial Thromboplastin Ratio 0.9; Partial Thromboplastin Time 25.4 Seconds (21.0-31.0); Prothrombin Time 10.9 Seconds (9.0-12.0)
--- NOTE | 2019-10-30 13:15 | XRay Report ---
XR chest 1V portable CLINICAL HISTORY: Chest Pain COMPARISON STUDY: 05/05/2019 FINDINGS: The bones soft tissues and hemidiaphragms are normal. The cardiomediastinal silhouette is n ormal. The lungs are clear. The pulmonary vasculature is normal. IMPRESSION: Negative chest. ACT 112: Negative or not required by law. The above report was generated using voice recognition software. It may contain grammatical, syntax or spelling errors. Electronically signed by: Mannie Villar M.D. 10/30/2019 1:14 PM
--- NOTE | 2019-10-30 14:05 | History & Physical Report ---
Date of Service October 30, 2019 Assessment & Plan (1) Chest pain: The patient's most prominent symptom is that of palpitations. She had 6+ hours of such on Saturday pm into am. She did have associated chest tightness during the prolonged episode of palpitations. She has had on/off chest tightness yesterday and today as well. Despite such her EKG is normal and initial troponin is negative. Interestingly she does NOT have any exertional chest pain, dyspnea, or palpitations. Last stress echo was in 2018 and was negative for ischemia. Plan - * serial troponins * place on telemetry * echo * obtain cardiology consult in am given the wide variety of cardiopulmonary symptoms; need for repeat stress test?? * strongly consider 30-day event monitor to capture the etiology of her palpitations Of note -- TSH earlier this year was markedly suppressed suggesting too much thyroid replacement. Recheck TSH - if still suppressed then a downward dose adjustment is needed. Iatrogenic hyperthyroidism could be contributing to these bothersome symptoms. Consider empiric treatment of GERD if cardiac source of her chest pain is not found. (2) Palpitations: see above in "chest pain." telemetry. check TSH. consider low-dose beta deepak for symptom control. strongly consider outpatient 30-day event monitor. could easily be having runs of a. fib, SVT, etc. (3) Chronic rhinitis: add alize 60mg BID. add nasocort 2 sprays/nostril daily. (4) Cervical lymphadenopathy: left cervical lymph node vs thyroid nodule in upper left pole. consider ultrasound. (5) GERD (gastroesophageal reflux disease): consider empiric Rx for such but patient doesn't feel chest tightness is from this. (6) Type 2 diabetes mellitus: check hemoglobin a1c. hold metformin. novolog sliding scale. DM diet. (7) Hypothyroid: see discussion above re: last TSH. check TSH, adjust meds as needed if iatrogenically hyperthyroid. (8) Hyperlipidemia: check lipids AM. cont statin. (9) Dementia: cont aricept. h/o concussion in 2017. poor memory since. (10) TIA (transient ischemic attack): history of such. cont asa for secondary prevention. (11) Fatigue: uncertain etiology. consider stress test to r/o cardiac cause. recheck TSH. suspect patient is not sleeping well at home either. (12) DVT prophylaxis: lovenox 40mg daily place on observation status History of Present Illness Chief Complaint: chest tightness, palpitations Primary Care Provider: Yusef Land, III, [employer] 64yo female presents with an episode of severe palpitations lasting from 10pm Saturday pm to about 0430 am. Palpitations started somewhat abruptly while laying in bed. She felt her pulse and it was very rapid. She unfortunately did not take an actual pulse from her wrist. She had associated chest tightness across the entire chest for the entire 6.5 hour duration. Had no associated dyspnea. The palpitations eventually resolved. She was able to go back to bed. When she woke up am she was sweaty and still had mild palpitations but it was not as severe. For the rest of most of the palpitations were gone. She then had palpitations again last night but not as severe as Saturday evening. She has had palpitations on/off for many weeks. Other episodes have been brief, however, most lasting minutes. One episode was 30 minutes. Interestingly she does work-outs in the pool at the [facility] and has NOT had chest pain, dyspnea or palpitations. This am she called her PCP's office for a prescription refill. While on the phone the nursing staff recommended going to the ER after she mentioned her symptoms to the nurse. By report the patient was given 1 dose of SL nitro in the ER with improvement in her chest symptoms. Allergies Allergy/AdvReac Type Severity Reaction Status Date / Time amantadine Allergy Intermediate GI UPSET Verified 10/30/19 14:11 doxycycline Allergy Intermediate GI UPSET Verified 10/30/19 14:11 Home Medications Home Medications Medication Instructions Recorded Confirmed Type celecoxib 100 mg capsule 100 mg PO BID #180 cap 06/24/19 10/30/19 Rx bupropion HCl 200 mg tablet,12 hr 200 mg PO BID #180 ea 08/04/19 10/30/19 Rx sustained-release atorvastatin 20 mg tablet 20 mg PO QAM #90 tab 09/03/19 10/30/19 Rx donepezil 10 mg tablet 10 mg PO HS #90 tab 09/03/19 10/30/19 Rx metformin 1,000 mg tablet 1,000 mg PO BID #180 tab 10/09/19 10/30/19 Rx aspirin [Aspir-81] 81 mg PO QAM 10/30/19 10/30/19 History dulaglutide [Trulicity] 0.75 mg SQ SA@0800 10/30/19 10/30/19 History duloxetine 30 mg PO QAM 10/30/19 10/30/19 History levothyroxine [Synthroid] 125 mcg PO QAM 10/30/19 10/30/19 History liothyronine [Cytomel] 25 mcg PO QAM 10/30/19 10/30/19 History Past Med/Surg History Medical History (Updated 10/30/19 @ 22:52 by Clive Giang) Abdominal muscle defects Anxiety Benign essential tremor Cellulitis, leg Concussion 2017 Dementia Depression Deterioration of memory Diabetes Executive function deficit Exertional chest pain Fall GERD (gastroesophageal reflux disease) Headache Hematoma of leg Hypertriglyceridemia Hypothyroid Insomnia Left foot drop Lumbar spinal stenosis Nausea Osteoarthrosis Other intervertebral disc degeneration, lumbar region Pre-diabetes Retinal tear of left eye Shortness of breath Stenosis of lumbosacral spine TIA (transient ischemic attack) Transaminitis Type 2 diabetes mellitus Surgical History (Updated 10/30/19 @ 14:20 by Clive Giang) H/O cataract extraction bilateral H/O resection of small bowel Status post left partial knee replacement Status post right partial knee replacement Family History (Updated 10/30/19 @ 14:24 by Clive Giang) Mother Coronary heart disease stents Father , age 49 of brain cancer Brain cancer Brother Throat cancer S/p nephrectomy for RCC Brother Myocardial infarction Denies family history of Ovarian cancer Prostate cancer Social History (Updated 10/30/19 @ 14:25 by Clive Giang) Smoking Status: Former smoker packs per day: 0.5; Years Smoked: 10; Smoking End Date: 2008; Second Hand Exposure: No; Do You Dip or Chew Tobacco: No; Tobacco Cessation Education Requested by Patient: No Hx Alcohol Use: Yes Alcohol type: wine Alcohol Intake Frequency: 4 or More x per/Week Alcohol Intake Frequency Comment: 2 glasses each time Hx Substance Use: No Preferred Language: Cape Verdean Communication Ability: Effective Visual Impairment: No Limitations Gin Feeder Required: No Beliefs That Will Affect Care: None marital status: Current Living Situation: Spouse current occupational status: retired current occupation: Retired 2015 from [employer] and [employer] How many Children do You have: 2 Other Information That Helps Us Care for You: No 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 Feels Safe at Home: Yes Review of Systems Constitutional: + fatigue (new in the last couple of weeks ), + weakness, + anorexia (for 2 weeks ) and + weight loss (intentional ); no fever and no chills Eyes: no worsening vision Ear, Nose, Mouth, Throat: + nasal discharge (months in duration ); no dysphagia no loss of taste or smell Respiratory: no cough and no dyspnea on exertion irregular breathing noted by recently while she is sleeping Cardiovascular: as per Subjective / HPI; no orthopnea, no paroxysmal nocturnal dyspnea and no edema Additional Comments: has had chest tightness x 2 episodes yesterday and 1 episode today, usually associated w/ palpitations Gastrointestinal: + nausea and + diarrhea/loose stools (for 1 week ); no abdominal pain and no vomiting Genitourinary: no dysuria Musculoskeletal: no myalgia Integumentary: no rash Neurologic: + loss of sensation (left leg, medial aspect - present for weeks ) Psychiatric: no depression and no anxiety Endocrine: DM - BSGs < 150 Hematologic / Lymphatic: + night sweats (occasional ); no lymphadenopathy Physical Exam Constitutional: well developed and well nourished; no acute distress and no altered mental status Eyes: PERRL ENMT: external ear and nose normal, oropharynx normal Ears: no TM abnormality Neck: trachea midline, no thyromegaly left anterior cervical lymph node vs thyroid nodule on left upper lobe Respiratory: normal respiratory effort, lungs clear to auscultation Cardiovascular: Rate/Rhythm: regular rate and regular rhythm (with occasional extra beat ) Heart Sounds: normal S1 and normal S2; no murmur Vessels: posterior tibial pulses present and dorsalis pedis pulses present; no JVD Extremities: no edema Gastrointestinal (Abdomen): normal bowel sounds, soft, nontender, no hepatosplenomegaly Musculoskeletal: no cyanosis or clubbing, extremities motor strength 5/5 Skin: no rashes, warm and dry Neurologic: deep tendon reflexes 2+ bilaterally and moves all extremities; no focal motor deficits Psychiatric: Orientation: alert and oriented x 3 Affect: + anxious affect Lymphatic: + cervical lymphadenopathy (left anterior cervical -- vs thyroid nodule on left lobe) Results & Data Results & Data ([facility]) Vital Signs (Past 12 Hours) Vital Signs Temp Pulse Resp BP Pulse Ox 10/30/19 12:47 93 10/30/19 12:43 83 14 122/75 93 10/30/19 12:35 87 20 127/71 93 10/30/19 12:30 87 23 127/101 H 94 10/30/19 12:28 82 17 147/96 H 96 10/30/19 12:05 88 23 10/30/19 11:57 37 C 93 H 20 160/84 H 92 10/30/19 09:30 86 14 130/67 Laboratory Results Laboratory Results - last 24 hr 10/30/19 10/30/19 10/30/19 12:10 12:10 12:10 WBC 9.66 RBC 5.12 Hgb 15.1 Hct 45.6 MCV 89.1 MCH 29.5 MCHC 33.1 RDW Std Deviation 47.9 H RDW Coeff of Mick 14.8 H Plt Count 303 MPV 10.4 Immature Gran % (Auto) 0.5 Neut % (Auto) 50.8 Lymph % (Auto) 37.5 Mckean % (Auto) 8.8 Eos % (Auto) 2.0 Baso % (Auto) 0.4 Neut # (Auto) 4.91 Lymph # (Auto) 3.62 H Mckean # (Auto) 0.85 H Eos # (Auto) 0.19 Baso # (Auto) 0.04 Immature Gran # (Auto) 0.05 H ESR PT 10.9 INR 1.0 APTT 25.4 PTT Ratio 0.9 D-Dimer 420 Sodium 140 Potassium 4.1 Chloride 106 Carbon Dioxide 26 Anion Gap 8.0 BUN 16 Creatinine 0.91 Est Cr Clr Drug Dosing 71.6 Est GFR ( Amer) 76.2 Est GFR (Non-Af Amer) 65.7 BUN/Creatinine Ratio 17.8 Glucose 127 H POC Glucose Calcium 9.1 Total Bilirubin 1.0 AST 67 H ALT 120 H Alkaline Phosphatase 74 Troponin I < 0.015 C-Reactive Protein Total Protein 7.4 Albumin 3.9 Globulin 3.5 Albumin/Globulin Ratio 1.1 Lipase 201 10/30/19 10/30/19 10/30/19 12:10 12:10 16:18 WBC RBC Hgb Hct MCV MCH MCHC RDW Std Deviation RDW Coeff of Mick Plt Count MPV Immature Gran % (Auto) Neut % (Auto) Lymph % (Auto) Mckean % (Auto) Eos % (Auto) Baso % (Auto) Neut # (Auto) Lymph # (Auto) Mckean # (Auto) Eos # (Auto) Baso # (Auto) Immature Gran # (Auto) ESR 18 PT INR APTT PTT Ratio D-Dimer Sodium Potassium Chloride Carbon Dioxide Anion Gap BUN Creatinine Est Cr Clr Drug Dosing Est GFR ( Amer) Est GFR (Non-Af Amer) BUN/Creatinine Ratio Glucose POC Glucose 83 Calcium Total Bilirubin AST ALT Alkaline Phosphatase Troponin I C-Reactive Protein < 0.29 Total Protein Albumin Globulin Albumin/Globulin Ratio Lipase 10/30/19 10/30/19 10/30/19 18:06 19:10 20:24 WBC RBC Hgb Hct MCV MCH MCHC RDW Std Deviation RDW Coeff of Mick Plt Count MPV Immature Gran % (Auto) Neut % (Auto) Lymph % (Auto) Mckean % (Auto) Eos % (Auto) Baso % (Auto) Neut # (Auto) Lymph # (Auto) Mckean # (Auto) Eos # (Auto) Baso # (Auto) Immature Gran # (Auto) ESR PT INR APTT PTT Ratio D-Dimer Sodium Potassium Chloride Carbon Dioxide Anion Gap BUN Creatinine Est Cr Clr Drug Dosing Est GFR ( Amer) Est GFR (Non-Af Amer) BUN/Creatinine Ratio Glucose POC Glucose 110 H 98 Calcium Total Bilirubin AST ALT Alkaline Phosphatase Troponin I < 0.015 C-Reactive Protein Total Protein Albumin Globulin Albumin/Globulin Ratio Lipase Diagnostic Findings 1. cxr - no infiltrates or acute process 2. EKG - my reading - NSR, no ST changes Code Status & VTE Plan Code Status full code VTE Prophylaxis Plan VTE Prophylaxis will be ordered: Yes PG Care Time/CCT Total # of Minutes Spent Total Time Spent with Patient: Total time spent is greater than 50% in coordination of care (as documented) at patient's floor/unit and/or counseling patient: Coding Level of Care Code 12515 OBS Care - Level 3 Diagnoses Chest pain R07.9 Chest pain type: unspecified Palpitations R00.2 Chronic rhinitis J31.0 Cervical lymphadenopathy R59.0 GERD (gastroesophageal reflux disease) K21.9 Esophagitis presence: esophagitis presence not specified Type 2 diabetes mellitus E11.9 Diabetes mellitus complication status: without complication Diabetes mellitus intermediate accountant insulin use: without fdc use Hypothyroid E03.9 Hypothyroidism type: acquired Hyperlipidemia E78.2 Hyperlipidemia type: mixed hyperlipidemia Dementia F03.90 Dementia behavioral disturbance: without behavioral disturbance Dementia type: unspecified type TIA (transient ischemic attack) G45.9 Fatigue R53.83 Fatigue type: unspecified DVT prophylaxis Z29.9 (1) Type 2 diabetes mellitus Diabetes mellitus complication status: without complication Diabetes mellitus intermediate accountant insulin use: without intermediate accountant use Qualified Code(s): E11.9 - Type 2 diabetes mellitus without complications (2) Dementia Dementia behavioral disturbance: without behavioral disturbance Dementia type: unspecified type Qualified Code(s): F03.90 - Unspecified dementia without behavioral disturbance (3) Hyperlipidemia Hyperlipidemia type: mixed hyperlipidemia Qualified Code(s): E78.2 - Mixed hyperlipidemia (4) Hypothyroid Hypothyroidism type: acquired Qualified Code(s): E03.9 - Hypothyroidism, unspecified (5) GERD (gastroesophageal reflux disease) Esophagitis presence: esophagitis presence not specified Qualified Code(s): K21.9 - Gastro-esophageal reflux disease without esophagitis (6) Chest pain Chest pain type: unspecified Qualified Code(s): R07.9 - Chest pain, unspecified (7) Fatigue Fatigue type: unspecified Qualified Code(s): R53.83 - Other fatigue
[2019-10-30] MEDS ORDERED: NITROGLYCERIN SL 0.4 MG/TAB TAB SL PRN (15:52)
[2019-10-30] MEDS ORDERED: ONDANSETRON INJ 2 MG/ML 2 ML VIAL IV PRN (15:52)
[2019-10-30] MEDS ORDERED: GLUCOSE 10 TABS/TUBE PO PRN (16:15)
[2019-10-30] MEDS ORDERED: GLUCOSE 40% GEL 15 GM TUBE PO PRN (16:15)
[2019-10-30] MEDS ORDERED: DEXTROSE 50% 50 ML SYRINGE IV PRN (16:15)
[2019-10-30] MEDS ORDERED: CARBOHYDRATES FOR HYPOGLYCEMIA PO PRN (16:15)
[2019-10-30] MEDS ORDERED: GLUCAGON FOR INJ 1 MG VIAL IM PRN (16:15)
[2019-10-30] MEDS: INSULIN ASPART 100 UNITS/ML 3 ML PEN SC SCH ×2 (17:35→21:17)
[2019-10-30] MEDS: TRIAMCINOLONE ACET NASAL SPRAY 10.8ML BTL NAE SCH (17:38)
[2019-10-30] MEDS: DONEPEZIL HCL 10 MG TAB PO SCH (21:17)
[2019-10-30] MEDS: FEXOFENADINE 60 MG TAB PO SCH (21:17)
[2019-10-30] MEDS: BuPROPion SR 100 MG TABCR PO SCH (21:17)
[2019-10-31] MEDS ORDERED: IBUPROFEN 800 MG TAB PO STA (00:53)
[2019-10-31 01:11] LABS: Thyroid Stimulating Hormone 0.087 uIu/ml (0.300-4.500); Troponin I < 0.015 ng/ml (0-0.045)
[2019-10-31] MEDS ORDERED: LIOTHYRONINE SODIUM 25 MCG TAB PO SCH (06:30)
[2019-10-31] MEDS ORDERED: LEVOTHYROXINE SODIUM 125 MCG TABLET PO SCH (06:30)
--- NOTE | 2019-10-31 07:08 | Electrocardiogram Report ---
Test Reason : Blood Pressure : / mmHG Vent. Rate : 084 BPM Atrial Rate : 084 BPM P-R Int : 124 ms QRS Dur : 076 ms QT Int : 354 ms P-R-T Axes : -01 020 029 degrees QTc Int : 418 ms Normal sinus rhythm Normal ECG When compared with ECG of 19-AUG-2018 12:38, No significant change was found Confirmed by Dionte Morales ([id number]) on 10/31/2019 7:08:32 AM Referred By: REFERRED SELF Confirmed By:Dionte Morales
[2019-10-31 08:07] LABS: Estimated Average Glucose 120 mg/dl; Hemoglobin A1C 5.8 % (4.5-5.6)
[2019-10-31 08:24] LABS: Chol HDL Ratio 2; Cholesterol 114 mg/dl (0-200); HDL Cholesterol 56 mg/dl; LDL Cholesterol Calculated 42 mg/dl; Triglycerides 82 mg/dl (0-150); VLDL Cholesterol 16 mg/dl
[2019-10-31] MEDS: INSULIN ASPART 100 UNITS/ML 3 ML PEN SC SCH ×4 (09:01→21:08)
[2019-10-31] MEDS: IBUPROFEN 200 MG TAB PO PRN (13:16)
[2019-10-31] MEDS: FEXOFENADINE 60 MG TAB PO SCH ×2 (13:17→21:08)
[2019-10-31] MEDS: ENOXAPARIN INJ 40 MG/0.4 ML SYR SQ SCH (13:17)
[2019-10-31] MEDS: ATORVASTATIN 20 MG TAB PO SCH (13:18)
[2019-10-31] MEDS: BuPROPion SR 100 MG TABCR PO SCH ×2 (13:18→21:07)
[2019-10-31] MEDS: DULOXETINE HCL 30 MG CAP PO SCH (13:19)
[2019-10-31] MEDS: TRIAMCINOLONE ACET NASAL SPRAY 10.8ML BTL NAE SCH (13:19)
[2019-10-31] MEDS: ASPIRIN 81 MG ECTAB PO SCH (13:19)
--- NOTE | 2019-10-31 14:29 | XCELERA ---
[id number] \\[id number]_[id number]
--- NOTE | 2019-10-31 16:22 | Hospitalist Progress Note ---
Date of Service October 31, 2019 Assessment & Plan (1) Chest pressure: Ratna Mobley is a 64-year-old female with a notable history of hypothyroidism controlled with both levothyroxine 125mcg PO daily and liothyronine 25 mcg PO qAM, HTN, and HLD who presented to the ED on 10/29 for evaluation of chest pressure and palpitations x 2 days in the setting of 1+ week of diarrhea and temperature sensitivity. Hemodynamically stable. 1. Chest Pressure vs. Pain, Associated with Palpitations -- ddx: Hyperthyroidism >> GERD, arrhythmia - Intermittent, nocturnal chest pressure (lasting > 6 hours) that cause pt to wake from sleep Saturday and night -- has continued to have a few episodes here. Do not seem to be exertionally-related. - ECG in the ED while patient was symptomatic demonstrated AIVR >> repeat ECG later in the day during symptoms demonstrated atrial tachycardia - Serial troponins were WNL - Echocardiogram performed 10/30 demonstrated EF 65-70% with no wall motion or valvular abnormalities, not demonstrating any clear etiology for a cardiac cause - Stress echo in 2018 was negative for ischemia - Placed on telemetry for continued cardiac monitoring in setting of these chest pains to r/o possible arrhythmias - Given very low TSH x 2 since visit to ED and into admission, accompanied by known other symptoms of hyperthyroidism including diarrhea and severe heat intolerance x 1 week, suspect iatrogenic hyperthyroidism as primary cause. - Cardiology consulted upon admission -- await recs - Consider PPIs for empiric treatment of reflux as possible cause - See hyperthyroidism below 2. Suspected hyperthyroidism, low TSH x 2 in 05/2019 and in ED this visit -- patient has h/o hypothyroidism - Patient reports multi-day history of palpitations and chest pressure, diarrhea, and heat intolerance - Patient has known h/o hypothyroidism, treated with both levothyroxine 125mcg PO daily and liothyronine 25 mcg PO qAM - TSH reported as low on two occasions -- 05/2019 at 0.02, and this visit (10/2019) at 0.08 - Given dual therapy involving both levothyroxine and liothyronine, suspect iatrogenic hypothyroidism vs. toxic nodule - Ultrasound of neck, thyroid, ordered to r/o toxic nodule - Temporarily d/c both thyroid replacement therapies in lieu of likely-symptom atic hyperthyroidism - Initiate metoprolol succinate 25mg PO daily for symptom control at rec of cardiology - Consider outpatient f/u for further management of replacement hormones -- consider bumping down levothyroxine dose at d/c 3. Neck mass, left sided: thyroid nodule vs. lymphadenopathy - As above -- US of neck ordered, await results 4. Chronic Rhinitis - Allegral 60mg PO b.i.d. - Nasocort 2 sprays / nostril daily Chronic Medical Conditions 4. Type 2 Diabetes Mellitus - A1c: 5.8 (10/29) - Hold metformin - Continue novolog sliding scale - DM diet as below 5. HLD - Continue statin 6. Dementia - Patient has a notable history of concussion in 2017 - Continue Aricept Dispo: Telemetry for continued cardiac monitoring in setting of chest pressures FEN/GI: DM diet PPX: pLov 40mg daily Code: Full code Admission and Anticipated Discharge Date Admission Date: October 30, 2019 Guicho Mobley is a 64-year-old female with a notable PMH of hypothyroidism on both levothyroxine 125mcg PO qAM and liothyronine 25mcg PO qAM, HTN, HLD, and T2DM who presented to [facility] ED with her , Saqib, on 10/29 for evaluation of episodic, nocturnal chest pressure and palpitations x 2 days. Please see H&P for full details. Briefly, Ratna reports that she woke up Saturday night with a feeling of central chest pressure and palpitations that lasted for 6 hours. Not associated with any shortness of breath or cough, but did endorse some nausea w/o vomiting. After going about her day normally on , did endorse waking up in the night again with the same symptoms, with the pressure now radiating towards her left side (associated with 9/10 in discomfort). Aside from this, does endorse having diarrhea x 1 week and extreme temperature sensitivity. She also endorses consistent runny nose. No fevers or chills. No PND or orthopnea. No numbness or tingling anywhere. Aside from starting Trulicity three weeks back, denies any new medications, supplements, or herbal remedies. She then proceeded to the ED and was found to be in AIVR on ECG. Serial troponins negative. Echo demonstrated EF 65-70% with no wall motion or valvular abnormalities. TSH found to be very low after two lab repeats. Labs otherwise fine. In the room today, she does endorse mild chest tightness, approx. 2/10 intensity. One episode last night where the pain jumped to 8-9/10 and was associated with a feeling of "my throat feeling tight." No shortness of breath in the room now. No leg pain or recent leg swelling. No urinary discomfort or UTI-like symptoms. Review of Systems Constitutional: as per Subjective / HPI and + sweats (occasional night sweats, unchanged recently); no chills and no fatigue Ear, Nose, Mouth, Throat: + nasal discharge Respiratory: as per Subjective / HPI Cardiovascular: as per Subjective / HPI Gastrointestinal: as per Subjective / HPI Genitourinary: as per Subjective / HPI Physical Exam Constitutional: WD/WN, vitals as above well developed and + well hydrated; no acute distress Eyes: PERRL, conjunctivae normal, anicteric sclerae Neck: Neck: Neck is supple. There is a small, soft, but appreciable mass-like enlargement near the L upper pole of the thyroid that ascends with swallowing -- nodule vs. LN. Otherwise, no cervical or submandibular LAD. Respiratory: normal respiratory effort, lungs clear to auscultation Cardiovascular: RRR, no murmur, no edema Gastrointestinal (Abdomen): normal bowel sounds, soft, nontender, no hepatosplenomegaly Bowel sounds are not hyperactive Psychiatric: Orientation: alert Results & Data Results & Data ([facility]) Vital Signs (Past 12 Hours) Vital Signs Temp Pulse Pulse Resp BP Pulse Ox 10/31/19 15:28 74 10/31/19 15:24 37 C 78 20 118/76 96 10/31/19 11:35 36.9 C 74 18 146/83 H 91 10/31/19 10:00 36.8 C 81 16 148/84 H 94 10/31/19 07:00 68 Resident Activity Tracking Resident Involvement: Resident Care Provided Care Provided: Adult Hospital Medicine
--- NOTE | 2019-10-31 17:16 | Cardiology Consultation ---
Date of Consultation October 31, 2019 Assessment & Plan (1) Chest pain: (2) Palpitations: (3) AIVR (accelerated idioventricular rhythm): (4) Paroxysmal atrial tachycardia: ASSESSMENT/PLAN: 1. Atypical chest pain: Her chest pain has been persistent for several days with negative troponin level, unremarkable ECG, and normal LV systolic function and wall motion on ECHO. Her chest pain appears to be noncardiac in nature. Further evaluation as per primary service. 2. Palpitations: Etiology uncertain. It is not clear for palpitations correlate with any arrhythmia. Can continue telemetry. 3. AIVR: We discussed the diagnosis. Her arrhythmia may be related to her hyperthyroid state currently. Primary team plans on starting low-dose beta- deepak which is reasonable. 4. Paroxysmal atrial tachycardia: She was reassured. Nonsustained episodes. Primary team plans on initiating beta-deepak. This may improve when her hyperthyroid state improves. 5. Disposition: Cardiology will sign off at this time. Please call with any other questions or concerns. Plan of care discussed with primary service, Dr. Alex. Thank you for allowing me to participate in the care of your patient. Please call for any other questions or concerns. Sincerely, Erwin Morales M.D. History of Present Illness Reason for Consultation: palpitations, V-tach Requesting Physician: Dr. Alex Attending Physician: Clive Giang History of Present Illness Mrs. Mobley is a pleasant 64-year-old female with a history significant for hypothyroidism, type 2 diabetes, dyslipidemia, dimension/memory loss since concussion in 2017, and TIA. She was admitted on 10/30/2019 with palpitations and chest pain. Three days ago, Saturday night, she developed chest discomfort at 11:00 p.m. described as a tightness or "knot" in the center of her chest that would radiate outward. It persisted for 5.5 hours and then improved and has been constant ever since then without resolution. She now rates her pain 2/10 on the pain scale. She thought her heart was racing during that episode when she checked her carotid pulse. She denies syncope, near-syncope, edema, shortness of breath, or bleeding such as melena, hematochezia, or hematuria. Despite several days worth of chest discomfort, her troponin has remained undetectable. Her ECGs were without dynamic changes. She was found to be hyperthyroid. On telemetry she was noted to have 11 beat run of wide complex morphology, consistent with AIVR. She also had nonsustained paroxysmal atrial tachycardia and ectopic atrial arrhythmia. She exercises 3 days per week doing laps in a swimming pool. She did not e xercise this past week but had been doing it on a regular basis. She denies exertional chest discomfort such as angina or shortness of breath. Review of systems: As above. Review of systems otherwise negative/ unremarkable. Family history: Brother with RI in his early 40s. Mother with CAD. Father at 49 with brain cancer. Social history: She quit smoking in 2008. Occasional alcohol. No drugs. She is retired. She lives at home with her . They have 2 children. She is unaccompanied. Allergies Allergy/AdvReac Type Severity Reaction Status Date / Time amantadine Allergy Intermediate GI UPSET Verified 10/30/19 14:11 doxycycline Allergy Intermediate GI UPSET Verified 10/30/19 14:11 Home Medications Home Medications Medication Instructions Recorded Confirmed Type celecoxib 100 mg capsule 100 mg PO BID #180 cap 06/24/19 10/30/19 Rx bupropion HCl 200 mg tablet,12 hr 200 mg PO BID #180 ea 08/04/19 10/30/19 Rx sustained-release atorvastatin 20 mg tablet 20 mg PO QAM #90 tab 09/03/19 10/30/19 Rx donepezil 10 mg tablet 10 mg PO HS #90 tab 09/03/19 10/30/19 Rx metformin 1,000 mg tablet 1,000 mg PO BID #180 tab 10/09/19 10/30/19 Rx aspirin [Aspir-81] 81 mg PO QAM 10/30/19 10/30/19 History dulaglutide [Trulicity] 0.75 mg SQ SA@0800 10/30/19 10/30/19 History duloxetine 30 mg PO QAM 10/30/19 10/30/19 History levothyroxine [Synthroid] 125 mcg PO QAM 10/30/19 10/30/19 History liothyronine [Cytomel] 25 mcg PO QAM 10/30/19 10/30/19 History Patient History Medical History Abdominal muscle defects Anxiety Benign essential tremor Cellulitis, leg Concussion 2017 Dementia Depression Deterioration of memory Diabetes Executive function deficit Exertional chest pain Fall GERD (gastroesophageal reflux disease) Headache Hematoma of leg Hypertriglyceridemia Hypothyroid Insomnia Left foot drop Lumbar spinal stenosis Nausea Osteoarthrosis Other intervertebral disc degeneration, lumbar region Pre-diabetes Retinal tear of left eye Shortness of breath Stenosis of lumbosacral spine TIA (transient ischemic attack) Transaminitis Type 2 diabetes mellitus Surgical History H/O cataract extraction bilateral H/O resection of small bowel Status post left partial knee replacement Status post right partial knee replacement Family History (Updated 10/30/19 @ 14:24 by Clive Giang) Mother Coronary heart disease stents Father , age 49 of brain cancer Brain cancer Brother Throat cancer S/p nephrectomy for RCC Brother Myocardial infarction Denies family history of Ovarian cancer Prostate cancer Social History (Updated 10/30/19 @ 14:25 by Clive Giang) Smoking Status: Former smoker packs per day: 0.5; Years Smoked: 10; Smoking End Date: 2008; Second Hand Exposure: No; Do You Dip or Chew Tobacco: No; Tobacco Cessation Education Requested by Patient: No Hx Alcohol Use: Yes Alcohol type: wine Alcohol Intake Frequency: 4 or More x per/Week Alcohol Intake Frequency Comment: 2 glasses each time Hx Substance Use: No Preferred Language: Citizen Of [place] Communication Ability: Effective Visual Impairment: No Limitations 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 Feels Safe at Home: Yes Physical Exam Physical Exam: Gen.: No acute distress. Alert and oriented. HEENT: Anicteric sclera. Neck: No JVD. No bruits. Normal carotid upstrokes bilaterally. Cardiac: PMI was nonpalpable. No ventricular heave. Regular. No ectopy. Normal S1-S2. No murmurs, rubs, or gallops. Pulmonary: Clear to auscultation bilaterally without wheezes, rales, or rhonchi. Abdomen: Soft, nontender, nondistended, with normoactive bowel sounds. No bruits noted. Extremities: 2+ radial pulses bilaterally. 2+ posterior tibialis pulses bilaterally. No edema or cyanosis. Psychiatric: Affect appears appropriate. Results & Data ([facility]) Vital Signs (Past 12 Hours) Vital Signs Temp Pulse Pulse Resp BP Pulse Ox 10/31/19 15:28 74 10/31/19 15:24 37 C 78 20 118/76 96 10/31/19 11:35 36.9 C 74 18 146/83 H 91 10/31/19 10:00 36.8 C 81 16 148/84 H 94 10/31/19 07:00 68 Laboratory Results Laboratory Results - last 24 hr 10/30/19 10/30/19 10/30/19 18:06 19:10 20:24 POC Glucose 110 H 98 Estimat Average Glucose Hemoglobin A1c Troponin I < 0.015 Triglycerides Cholesterol LDL Cholesterol, Calc VLDL Cholesterol, Calc HDL Cholesterol Cholesterol/HDL Ratio TSH 10/31/19 10/31/19 10/31/19 00:21 07:38 07:38 POC Glucose Estimat Average Glucose 120 Hemoglobin A1c 5.8 H Troponin I < 0.015 Triglycerides 82 Cholesterol 114 LDL Cholesterol, Calc 42 VLDL Cholesterol, Calc 16 HDL Cholesterol 56 Cholesterol/HDL Ratio 2 TSH 0.087 L 10/31/19 10/31/19 10/31/19 07:40 11:19 16:21 POC Glucose 108 H 118 H 101 H Estimat Average Glucose Hemoglobin A1c Troponin I Triglycerides Cholesterol LDL Cholesterol, Calc VLDL Cholesterol, Calc HDL Cholesterol Cholesterol/HDL Ratio TSH Diagnostic Findings Telemetry personally reviewed: Predominantly sinus rhythm with brief episodes of nonsustained atrial tachycardia and ectopic atrial rhythm. Eleven beat run of accelerated idioventricular rhythm. ECGs personally reviewed: ECG 10/30/2019 at 7:03 a.m.: NSR 72 bpm. Normal ECG. ECG 10/30/2019 at 12:03 p.m.: NSR 84 bpm. Normal ECG. ECG 10/30/2019 at 8:36 p.m.: NSR 77 bpm. Normal ECG. ECG 11/01/2019 at 4:19 p.m.: NSR 76 bpm. Normal ECG. Echo 10/31/2019: Normal LV size, wall motion, systolic function. EF 65-70%. No significant valvular abnormalities. Chest x-ray 10/30/2019: Negative chest per Radiology. Medications Administered Current Inpatient Medications Aspirin (Aspirin 81 Mg Ectab) 81 mg PO QAM [facility] Stop: 11/30/19 08:59 Last Admin: 10/31/19 13:19 Dose: 81 mg Documented by: Atorvastatin Calcium (Atorvastatin 20 Mg Tab) 20 mg PO QAM [facility] Stop: 11/30/19 08:59 Last Admin: 10/31/19 13:18 Dose: 20 mg Documented by: Bupropion HCl (Bupropion Sr 100 Mg Tabcr) 200 mg PO BID [facility] Stop: 11/29/19 20:59 Last Admin: 10/31/19 13:18 Dose: 200 mg Documented by: Dextrose (Dextrose 50% 50 Ml Syringe) 25 - 50 ml IV UD PRN; Protocol PRN Reason: Hypoglycemia Protocol Stop: 11/29/19 16:14 Donepezil HCl (Donepezil Hcl 10 Mg Tab) 10 mg PO HS [facility] Stop: 11/29/19 20:59 Last Admin: 10/30/19 21:17 Dose: Not Given Documented by: Duloxetine HCl (Duloxetine Hcl 30 Mg Cap) 30 mg PO [facility] Stop: 11/30/19 08:59 Last Admin: 10/31/19 13:19 Dose: 30 mg Documented by: Enoxaparin Sodium (Enoxaparin Inj 40 Mg/0.4 Ml Syr) 40 mg SQ [facility] Stop: 11/30/19 08:59 Last Admin: 10/31/19 13:17 Dose: 40 mg Documented by: Fexofenadine HCl (Fexofenadine 60 Mg Tab) 60 mg PO BID [facility] Stop: 11/29/19 20:59 Last Admin: 10/31/19 13:17 Dose: 60 mg Documented by: Glucagon (Glucagon For Inj 1 Mg Vial) 1 mg IM UD PRN; Protocol PRN Reason: Hypoglycemia Protocol Stop: 11/29/19 16:14 Glucose (Glucose 40% Gel 15 Gm Tube) 15 - 30 gm PO UD PRN; Protocol PRN Reason: Hypoglycemia Protocol Stop: 11/29/19 16:14 Glucose (Glucose 10 Tabs/Tube) 4 - 8 tabs PO UD PRN; Protocol PRN Reason: Hypoglycemia Protocol Stop: 11/29/19 16:14 Ibuprofen (Ibuprofen 200 Mg Tab) 400 mg PO QID PRN PRN Reason: Pain or Fever Stop: 11/30/19 06:35 Last Admin: 10/31/19 13:16 Dose: 400 mg Documented by: Insulin Aspart (Insulin Aspart 100 Units/Ml 3 Ml Pen) 0 units SC ACHS [facility] Stop: 11/29/19 16:29 Last Admin: 10/31/19 17:06 Dose: Not Given Documented by: Levothyroxine Sodium (Levothyroxine Sodium 125 Mcg Tablet) 125 mcg PO DAILYBB [facility] Stop: 11/30/19 06:29 Last Admin: 10/31/19 06:27 Dose: 125 mcg Documented by: Liothyronine Sodium (Liothyronine Sodium 25 Mcg Tab) 25 mcg PO DAILYBB [facility] Stop: 11/30/19 06:29 Last Admin: 10/31/19 06:27 Dose: 25 mcg Documented by: Miscellaneous (Carbohydrates For Hypoglycemia ) 15 - 30 gm PO UD PRN PRN Reason: Hypoglycemia Treatment Stop: 11/29/19 16:14 Nitroglycerin (Nitroglycerin Sl 0.4 Mg/Tab Tab) 0.4 mg SL UD PRN PRN Reason: Chest Pain Stop: 11/29/19 15:51 Last Admin: 10/31/19 01:25 Dose: 0.4 mg Documented by: Ondansetron HCl (Ondansetron Inj 2 Mg/Ml 2 Ml Vial) 4 mg IV Q6H PRN PRN Reason: Nausea Stop: 11/29/19 15:51 Triamcinolone Acetonide (Triamcinolone Acet Nasal [place] 10.8ml Btl) 2 sprays LILLIE DAILY [facility] Stop: 11/29/19 16:29 Last Admin: 10/31/19 13:19 Dose: Not Given Documented by: PG Care Time/CCT Total # of Minutes Spent Total Time Spent with Patient: Total time spent is greater than 50% in coordination of care (as documented) at patient's floor/unit and/or counseling patient: Coding Level of Care Code 04514 Initial Inpt Care Lvl 2 Diagnoses Chest pain R07.9 Chest pain type: unspecified Palpitations R00.2 AIVR (accelerated idioventricular rhythm) I44.2 Paroxysmal atrial tachycardia I47.1 (1) Chest pain Chest pain type: unspecified Qualified Code(s): R07.9 - Chest pain, unspecified
[2019-10-31] MEDS ORDERED: METOPROLOL SUCC 25MG EXT REL TAB PO SCH (17:45)
[2019-10-31] MEDS: DONEPEZIL HCL 10 MG TAB PO SCH (21:08)
[2019-11-01] MEDS: IBUPROFEN 200 MG TAB PO PRN (04:37)
[2019-11-01 07:09] VITALS: TEMP 98.4; O2SAT 93
[2019-11-01 07:34] LABS: Basophils # (auto) 0.03 K/uL (0-0.2); Basophils % (auto) 0.3 %; Eosinophils # (auto) 0.19 K/uL (0-0.5); Hematocrit (blood only) 43.2 % (37-47); Hemoglobin 14.4 g/dL (12.0-16.0); Immature Granulocytes # (auto) 0.04 K/uL (0.00-0.02); Immature Granulocytes % (auto) 0.4 %; Lymphocytes # (auto) 3.53 K/uL (1.2-3.4); Lymphocytes % (auto) 36.8 %; Mean Corpuscular Volume 86.9 fL (80-100); Monocytes # (auto) 1.18 K/uL (0.11-0.59); Monocytes % (auto) 12.3 %; Neutrophils # (auto) 4.62 K/uL (1.4-6.5); Neutrophils % (auto) 48.2 %; Platelet Count 255 K/uL (130-400); RDW Coefficient of Variation 14.4 % (11.5-14.5); RDW Standard Deviation 45.9 fL (36.4-46.3); Red Blood Count 4.97 M/uL (4.2-5.4); White Blood Count 9.59 K/uL (4.8-10.8)
[2019-11-01 07:44] LABS: Mean Corpuscular Hgb Conc 33.3 g/dL (32-36)
[2019-11-01 07:50] LABS: Albumin Level 3.5 gm/dl (3.4-5.0); BUN Creatinine Ratio 20.9 (10-20); Bilirubin Direct 0.2 mg/dl (0-0.2); Calcium 8.9 mg/dl (8.5-10.1); Creatinine Clr Calc Pharmacy 93.2 ml/min; Est GFR (African American) 102.9; Est GFR (Non-African American) 88.8; Potassium 4.2 mmol/L (3.5-5.1)
[2019-11-01 07:53] LABS: Bilirubin,Total 0.9 mg/dl (0.2-1); Total Protein 6.9 gm/dl (6.4-8.2)
--- NOTE | 2019-11-01 08:40 | Ultrasound Report ---
US thyroid CLINICAL HISTORY: symptoms of hyperthyroidism, ?L thyroid enlargement COMPARISON STUDY: No previous studies for comparison. FINDINGS: The right lobe the thyroid measures 12 x 39 x 10 mm. The left lobe the thyroid measures 12 x 39 x 11 mm. Both lobes are heterogeneous in echotexture. No suspicious thyroid nodules are visualized. There are a few scattered calcifications. IMPRESSION: 1. Heterogeneous thyroid gland. No suspicious thyroid masses identified ACT 112: Negative or not required by law. Electronically signed by: Josiah Mayer M.D. 11/01/2019 8:39 AM
[2019-11-01] MEDS: ATORVASTATIN 20 MG TAB PO SCH (08:54)
[2019-11-01] MEDS: ASPIRIN 81 MG ECTAB PO SCH (08:54)
[2019-11-01] MEDS: FEXOFENADINE 60 MG TAB PO SCH (08:54)
[2019-11-01] MEDS: BuPROPion SR 100 MG TABCR PO SCH (08:55)
[2019-11-01] MEDS: TRIAMCINOLONE ACET NASAL SPRAY 10.8ML BTL NAE SCH (08:55)
[2019-11-01] MEDS: DULOXETINE HCL 30 MG CAP PO SCH (08:55)
[2019-11-01] MEDS: INSULIN ASPART 100 UNITS/ML 3 ML PEN SC SCH ×2 (08:56→12:06)
[2019-11-01] MEDS: ENOXAPARIN INJ 40 MG/0.4 ML SYR SQ SCH (08:59)
--- NOTE | 2019-11-01 11:29 | Discharge Summary ---
Date of Service November 01, 2019 Admission HPI Per Admitting Provider 64yo female presents with an episode of severe palpitations lasting from 10pm Saturday pm to about 0430 am. Palpitations started somewhat abruptly while laying in bed. She felt her pulse and it was very rapid. She unfortunately did not take an actual pulse from her wrist. She had associated chest tightness across the entire chest for the entire 6.5 hour duration. Had no associated dyspnea. The palpitations eventually resolved. She was able to go back to bed. When she woke up am she was sweaty and still had mild palpitations but it was not as severe. For the rest of most of the palpitations were gone. She then had palpitations again last night but not as severe as Saturday evening. She has had palpitations on/off for many weeks. Other episodes have been brief, however, most lasting minutes. One episode was 30 minutes. Interestingly she does work-outs in the pool at the [facility] and has NOT had chest pain, dyspnea or palpitations. This am she called her PCP's office for a prescription refill. While on the phone the nursing staff recommended going to the ER after she mentioned her symptoms to the nurse. By report the patient was given 1 dose of SL nitro in the ER with improvement in her chest symptoms. Admission Exam Per Admitting Provider Constitutional: well developed and well nourished; no acute distress and no altered mental status Eyes: PERRL ENMT: external ear and nose normal, oropharynx normal Ears: no TM abnormality Neck: trachea midline, no thyromegaly left anterior cervical lymph node vs thyroid nodule on left upper lobe Respiratory: normal respiratory effort, lungs clear to auscultation Cardiovascular: Rate/Rhythm: regular rate and regular rhythm (with occasional extra beat ) Heart Sounds: normal S1 and normal S2; no murmur Vessels: posterior tibial pulses present and dorsalis pedis pulses present; no JVD Extremities: no edema Gastrointestinal (Abdomen): normal bowel sounds, soft, nontender, no hepatosplenomegaly Musculoskeletal: no cyanosis or clubbing, extremities motor strength 5/5 Skin: no rashes, warm and dry Neurologic: deep tendon reflexes 2+ bilaterally and moves all extremities; no focal motor deficits Psychiatric: Orientation: alert and oriented x 3 Affect: + anxious affect Lymphatic: + cervical lymphadenopathy (left anterior cervical -- vs thyroid nodule on left lobe) Principal Diagnosis Hyperthyroidism History of Hypothyroidism Discharge Exam Constitutional WD/WN, vitals as above no acute distress Eyes PERRL, conjunctivae normal, anicteric sclerae ENMT external ear and nose normal, oropharynx normal Neck trachea midline, no thyromegaly normal visual inspection Respiratory normal respiratory effort, lungs clear to auscultation Cardiovascular RRR, no murmur, no edema Gastrointestinal (Abdomen) normal bowel sounds, soft, nontender, no hepatosplenomegaly Musculoskeletal no cyanosis or clubbing, extremities motor strength 5/5 Skin no rashes, warm and dry Psychiatric A+Ox3, euthymic affect Lymphatic no cervical lymphadenopathy Discharge Data Allergies Allergy/AdvReac Type Severity Reaction Status Date / Time amantadine Allergy Intermediate GI UPSET Verified 10/30/19 14:11 doxycycline Allergy Intermediate GI UPSET Verified 10/30/19 14:11 Consultations 10/30/19 13:45 ED Decision to Admit Stat 10/31/19 10:26 Consult Cardiology Routine Ordered Studies 10/31/19 17:41 US thyroid Routine Hospital Course (1) Hyperthyroidism: Ratna Mobley is a 64-year-old female with a notable history of hypothyroidism controlled with both levothyroxine 125mcg PO daily and liothyronine 25 mcg PO qAM, HTN, and HLD who was admitted on 10/30/2019 for evaluation of chest pressure and palpitations x 2 days in the setting of 1+ week of diarrhea and temperature sensitivity. She had a negative cardiac work-up with several unremarkable EKGs, negative Troponin I, unremarkable CXR, and she had a TSH of .087; her symptoms were determined to be secondary to medication-induced hyperthyroidism. She had a thyroid US that was negative for nodules/masses, although the patient mentioned that her liothyronine was increased ~2 weeks ago, which likely led to her current symptoms. Both her Levothyroxine and Liothyronine were discontinued while hospitalized. She was seen by Cardiology while hospitalized and was started on Metoprolol Succinate XL 25mg PO QAM for rate-control in the setting of hyperthyroidism, first dose given on 10/30. She has been stable and improving while hospitalized; her chest pressure and heat intolerance have resolved, and her diarrhea is resolving. She will be discharged in stable condition on 11/01/2019 and will start a decreased dose of Levothyroxine 100 mcg daily, starting on 11/03. Her liothyronine will be discontinued for now, and she will continue to take Toprol XL 25mg PO QAM for rate-control. She will follow up in 3-4 weeks with her PCP for continued management of thyroid issues. (2) History of hypothyroidism: Total Time Total Time Spent Total Time Spent (In Minutes): 30 minutes Total Time Includes: Examination of the Patient, Discharge Planning and Medication Reconciliation Discharge Plan Discharge Items Patient Disposition: Home - Self-Care Reason For Visit: CHEST PAIN Discharge Diagnosis: Hyperthyroidism History of Hypothyroidism Activity: Per Instructions section Non-emergency contact: Primary Care Provider Call non-emergency contact if: you have any medication questions and your symptoms worsen Follow-up/Referrals: Yusef Land III, CRNP [Primary Care Provider] - Diet: Carb Consistent or DM2 Addtl Attending Provider Instructions: You were admitted on 10/30/2019 for evaluation of chest pressure and heart palpitations x 2 days in the setting of 1+ week of diarrhea and temperature sensitivity. You had a negative work-up for a heart attack, which was done due to your chest pressure. You had several normal EKGs as well as normal cardiac markers in your blood and a normal chest x-ray. Your TSH level in the hospital was low at .087, which is a sign of hyperthyroidism. Your current state of hyperthyroidism is most likely due to being over-medicated for your hypothyroidism. Sometimes, the body goes through changes as well as stressors that can affect the need for the same dose of hypothyroidism medications; this may be what occurred. You had a thyroid ultrasound that was negative for nodules/masses. You mentioned that your liothyronine medication was increased ~2 weeks ago, which likely also led to your current symptoms. Both your Levothyroxine and Liothyronine were discontinued while you were hospitalized. You were seen by Cardiology while hospitalized and were started on Metoprolol Succinate XL 25mg daily for heart rate control in the setting of hyperthyroidism. You received your first dose of this medication on 10/30. You have been stable and improving while hospitalized; your chest pressure and heat intolerance have resolved, and your diarrhea is resolving. You will be discharged in stable condition on 11/01/2019 and will start a decreased dose of Levothyroxine 100 mcg daily, starting on Saturday, 11/03. Your liothyronine will be discontinued for now, and you will continue to take Metoprolol Succinate XL 25mg daily for heart rate control. You should follow up in 3-4 weeks with your PCP for continued management of your thyroid issues. Pending Studies at Discharge: No Stand-Alone Forms: My [facility], Smoking Cessation Medications and DC Order Prescriptions: New metoprolol succinate 25 mg tablet extended release 24 hr 25 mg PO DAILY Qty: 30 RF: 1 levothyroxine [Synthroid] 100 mcg tablet 100 mcg PO DAILY Qty: 30 RF: 1 Continued celecoxib [Celebrex] 100 mg capsule 100 mg PO BID Qty: 180 RF: 1 bupropion HCl [Wellbutrin SR] 200 mg tablet sustained-release 12 hr 200 mg PO BID Qty: 180 RF: 1 atorvastatin 20 mg tablet 20 mg PO QAM Qty: 90 RF: 1 donepezil [Aricept] 10 mg tablet 10 mg PO HS Qty: 90 RF: 1 metformin 1,000 mg tablet 1,000 mg PO BID Qty: 180 RF: 1 aspirin [Aspir-81] 81 mg tablet,delayed release (DR/EC) 81 mg PO QAM RF: 0 duloxetine 30 mg capsule,delayed release(DR/EC) 30 mg PO QAM RF: 0 Trulicity 0.75 mg/0.5 mL pen injector 0.75 mg SQ SA@0800 RF: 0 Discontinued liothyronine [Cytomel] 25 mcg tablet 25 mcg PO QAM RF: 0 levothyroxine [Synthroid] 125 mcg tablet 125 mcg PO QAM RF: 0 Discharge Orders: Discharge Order (Routine); Ordered 11/01/19 Ordered By: Neo Méndez Admission Data Admit Date/Time: 10/30/19 13:54 Attending Provider: Sascha Alex Admit Provider: Clive Giang Primary Care Provider: Yusef Land III Other Providers: Clive Giang ; Boby Koenig ; Fox Mendoza ; Jeremy Wooten ; Lorenzo Foster ; Oh Soto ; Contreras Frost Jr ; Dionte Morales ; Kimmie Mathew ; Jaylin Woodson ; Isma Baker ; Isma Neri ; Storm Kaplan ; Salvador Reyes ; Maria C Griffith ; Sheila Murray ; Ruben Núñez ; [place] Other Interventions: Discharge Summary Assessment (RN) Last Done: 11/01/19 11:51 Supervising Physician Co-Signing Physician Notes I also saw the patient with the resident physician and confirmed coello portions of the history and physical examination. I agree with the impression and plan and the discharge instructions as noted in the resident documentation. At the time of our examination, the patient's was present and we discussed in detail the laboratory and radiographic (ultrasound) findings during this hospitalization as well as the recommended medication changes and follow-up. A ll questions were answered and the patient and her were able to verbalize back the rationale for the medication changes and the post discharge instructions. Patient with palpitations and other symptoms suggesting oversupplementation in the setting of low TSH. Discontinue T3 supplementation We will hold Synthroid and resume lower dose. Follow-up with PCP to recheck TSH. Low-dose beta-deepak for palpitations -and mild anxiety -although this could be discontinued once she is biochemically euthyroid. Resident Activity Tracking Resident Involvement: Resident Care Provided Care Provided: Adult [facility]
[2019-11-01 11:53] VITALS: BP 123/76; PULSE 77
--- NOTE | 2019-11-01 16:26 | Electrocardiogram Report ---
Test Reason : Blood Pressure : / mmHG Vent. Rate : 077 BPM Atrial Rate : 077 BPM P-R Int : 116 ms QRS Dur : 076 ms QT Int : 372 ms P-R-T Axes : -11 017 038 degrees QTc Int : 420 ms Normal sinus rhythm Low voltage QRS Borderline ECG When compared with ECG of 30-OCT-2019 12:03, No significant change was found Confirmed by Dionte Morales ([id number]) on 11/01/2019 4:25:31 PM Referred By: REFERRED SELF Confirmed By:Dionte Morales
--- NOTE | 2019-11-01 16:33 | Electrocardiogram Report ---
Test Reason : Blood Pressure : / mmHG Vent. Rate : 072 BPM Atrial Rate : 072 BPM P-R Int : 120 ms QRS Dur : 078 ms QT Int : 406 ms P-R-T Axes : -06 057 050 degrees QTc Int : 444 ms Normal sinus rhythm Normal ECG When compared with ECG of 30-OCT-2019 20:36, No significant change was found Confirmed by Dionte Morales ([id number]) on 11/01/2019 4:33:13 PM Referred By: REFERRED SELF Confirmed By:Dionte Morales
--- NOTE | 2019-11-01 22:52 | Electrocardiogram Report ---
Test Reason : Blood Pressure : / mmHG Vent. Rate : 076 BPM Atrial Rate : 076 BPM P-R Int : 116 ms QRS Dur : 078 ms QT Int : 376 ms P-R-T Axes : -10 014 027 degrees QTc Int : 423 ms Normal sinus rhythm Normal ECG When compared with ECG of 31-OCT-2019 07:03, No significant change was found Confirmed by Dionte Morales ([id number]) on 11/01/2019 10:52:23 PM Referred By: REFERRED SELF Confirmed By:Dionte Morales
== END 2019-11-01 12:21 | disposition home or self-care (01) ==
LOC: ED 11:54 → 2W 11:54 → SUATTDRO 13:54 → 2W 15:23

== ENCOUNTER 2021-08-09 06:23 | Inpatient (IN) ==
--- NOTE | 2021-07-25 11:02 | PAT Medication Instructions ---
Medication Instructions Date of Service July 25, 2021 Home Medications Medication Instructions Recorded Knee Scooter #1 ea 10/04/20 dulaglutide 0.75 mg/0.5 mL 0.75 mg SQ SA@0800 #6 ml 10/25/20 subcutaneous pen injector (Trulicity) topiramate 25 mg tablet 25 mg PO DAILY #90 tab 12/14/20 bupropion HCl 200 mg tablet,12 hr 200 mg PO BID #180 ea 01/23/21 sustained-release (Wellbutrin SR) buspirone 7.5 mg tablet 7.5 mg PO BID #60 tab 02/06/21 atorvastatin 20 mg tablet 20 mg PO QAM #90 tab 02/20/21 donepezil 10 mg tablet (Aricept) 10 mg PO HS #90 tab 02/20/21 duloxetine 30 mg capsule,delayed 30 mg PO QAM #90 cap 03/22/21 release metformin 1,000 mg tablet 1,000 mg PO BID #180 tab 03/22/21 celecoxib 100 mg capsule (Celebrex) 100 mg PO BID #180 cap 05/25/21 oxycodone-acetaminophen 5 mg-325 1 tab PO TID PRN #90 tab 07/06/21 mg tablet (Endocet) aspirin 81 mg tablet,delayed release (Aspir-) 81 mg PO QAM dulaglutide 0.75 mg/0.5 mL subcutaneous pen injector (Trulicity) 0.75 mg SQ SA@0800 topiramate 25 mg tablet 25 mg PO DAILY bupropion HCl 200 mg tablet,12 hr sustained-release (Wellbutrin SR) 200 mg PO BID buspirone 7.5 mg tablet 7.5 mg PO BID atorvastatin 20 mg tablet 20 mg PO QAM donepezil 10 mg tablet (Aricept) 10 mg PO HS duloxetine 30 mg capsule,delayed release 30 mg PO QAM metformin 1,000 mg tablet 1,000 mg PO BID celecoxib 100 mg capsule (Celebrex) 100 mg PO BID oxycodone-acetaminophen 5 mg-325 mg tablet (Endocet) 1 tab PO TID PRN levothyroxine 100 mcg tablet (Synthroid) 100 mcg PO QAM mirtazapine 15 mg tablet 15 mg PO HS Continue as directed dulaglutide 0.75 mg/0.5 mL subcutaneous pen injector (Trulicity) 0.75 mg SQ SA@0800 ASK your surgeon for instructions celecoxib 100 mg capsule (Celebrex) 100 mg PO BID ASK your prescriber and surgeon aspirin 81 mg tablet,delayed release (Aspir-) 81 mg PO QAM DO NOT take the morning of surgery metformin 1,000 mg tablet 1,000 mg PO BID Take morning of surgery With a small sip of water, OTHERWISE NOTHING TO EAT OR DRINK AFTER MIDNIGHT: topiramate 25 mg tablet 25 mg PO DAILY bupropion HCl 200 mg tablet,12 hr sustained-release (Wellbutrin SR) 200 mg PO BID buspirone 7.5 mg tablet 7.5 mg PO BID atorvastatin 20 mg tablet 20 mg PO QAM duloxetine 30 mg capsule,delayed release 30 mg PO QAM oxycodone-acetaminophen 5 mg-325 mg tablet (Endocet) 1 tab PO TID PRN (okay to take up to 4 hours prior to surgery if needed) levothyroxine 100 mcg tablet (Synthroid) 100 mcg PO QAM Take evening before surgery bupropion HCl 200 mg tablet,12 hr sustained-release (Wellbutrin SR) 200 mg PO BID buspirone 7.5 mg tablet 7.5 mg PO BID donepezil 10 mg tablet (Aricept) 10 mg PO HS metformin 1,000 mg tablet 1,000 mg PO BID oxycodone-acetaminophen 5 mg-325 mg tablet (Endocet) 1 tab PO TID PRN (if needed) mirtazapine 15 mg tablet 15 mg PO HS Other Notes If you have any questions please call us at [phone] or [phone] or [phone] or [phone]
--- NOTE | 2021-07-26 12:06 | Anesthesiology Consultation ---
Date of Service July 26, 2021 Assessment & Plan (1) Encounter for pre-operative examination: - hyperkalemia: awaiting PCP workload note response. repeat BMP planned 07/31 per PCP workload note. - positive antibodies: Discussed with Hero in blood bank and he advised nothing additional is needed prior to surgery from PAT or pt. - check BSG am DOS. - awaiting surgeon ordered medical clearance. - COVID screening: Per assessment on 07/26/2021: Travel screen returned from [place] 07/21, no known COVID-19 positive contacts or current COVID-19 related symptoms in past 2 weeks. Patient vaccinated. Surgeon arranging preop COVID testing, scheduled 08/07/2021. Awaiting results. Chart Review Chart Review: Pending: Refer to Additional Notes / Consult section and Patient seen in Pre Admission Testing Teaching & Discussion Pre-Anesthesia Teaching/Discussion Notes: Instructed NPO after midnight before surgery, except medications with 15 cc of water. Medication instructions provided according to the [facility] guidelines. History Surgery Operation Date: 08/09/21 10:05 Proposed Procedures p L2-L3 Decompression and Fusion, Spinal Cord Monitoring - Jona Jenkins DO Height/Weight Height: 5 ft 7 in Weight: 95.1 kg Allergies Allergy/AdvReac Type Severity Reaction Status Date / Time amantadine Allergy Intermediate GI UPSET Verified 07/24/21 09:25 doxycycline Allergy Intermediate GI UPSET Verified 07/24/21 09:25 Medications Home Medications Medication Instructions Recorded Confirmed Last Taken aspirin 81 mg tablet,delayed 81 mg PO QAM 10/30/19 07/24/21 10/29/19 release (Aspir-) Knee Scooter #1 ea 10/04/20 07/24/21 Unknown dulaglutide 0.75 mg/0.5 mL 0.75 mg SQ SA@0800 #6 ml 10/25/20 07/24/21 Unknown subcutaneous pen injector (Trulicity) topiramate 25 mg tablet 25 mg PO DAILY #90 tab 12/14/20 07/24/21 Unknown bupropion HCl 200 mg tablet,12 hr 200 mg PO BID #180 ea 01/23/21 07/24/21 Unknown sustained-release (Wellbutrin SR) buspirone 7.5 mg tablet 7.5 mg PO BID #60 tab 02/06/21 07/24/21 Unknown atorvastatin 20 mg tablet 20 mg PO QAM #90 tab 02/20/21 07/24/21 Unknown donepezil 10 mg tablet (Aricept) 10 mg PO HS #90 tab 02/20/21 07/24/21 Unknown duloxetine 30 mg capsule,delayed 30 mg PO QAM #90 cap 03/22/21 07/24/21 Unknown release metformin 1,000 mg tablet 1,000 mg PO BID #180 tab 03/22/21 07/24/21 Unknown celecoxib 100 mg capsule (Celebrex) 100 mg PO BID #180 cap 05/25/21 07/24/21 Unknown oxycodone-acetaminophen 5 mg-325 1 tab PO TID PRN #90 tab 07/06/21 07/24/21 Unknown mg tablet (Endocet) levothyroxine 100 mcg tablet 100 mcg PO QAM 07/24/21 07/24/21 Unknown (Synthroid) mirtazapine 15 mg tablet 15 mg PO HS 07/24/21 07/24/21 Unknown Past Medical History Medical History (Updated 07/28/21 @ 12:02 by Leonila Seth PA-C) Abdominal muscle defects Benign essential tremor Concussion 2017 Dementia Depression hx Foot fracture, right GERD (gastroesophageal reflux disease) controlled, stable per pt Hyperlipidemia Hypothyroid Left foot drop Lumbar spinal stenosis Opiate dependence Other intervertebral disc degeneration, lumbar region Retinal tear of left eye with repair TIA (transient ischemic attack) >5 yrs, unsure when had, was found on CT scan per pt, pt can't recall details Transaminitis Type 2 diabetes mellitus NIDDM Patient denies h/o seizures, heart attack, heart failure, HTN, blood clots or blood transfusions. Exercise / Class Metabolic Activity II 4-5 Yardwork/Stairs/Walk up hill (denies CP or SOB with 1 FOS) Past Family History Family History Mother Coronary heart disease stents Father , age 49 of brain cancer Brain cancer Brother Throat cancer S/p nephrectomy for RCC Brother Myocardial infarction Denies family history of Ovarian cancer Prostate cancer Colorectal cancer Past Surgical History Surgical History (Updated 07/26/21 @ 12:27 by Leonila Seth PA-C) H/O cataract extraction bilateral H/O resection of small bowel for SBO History of section x2 History of colonoscopy Status post left partial knee replacement Status post right partial knee replacement [place] teeth extracted Past Anesthesia History No Hx of Anesthesia Complications and No Family Hx of Anesthesia Complications History of PONV No Hx of PONV and No Hx of Motion Sickness Social History Smoking Status: Former smoker tobacco type: cigarettes Smoking cigarettes per day: 10 Do You Dip or Chew Tobacco: No Smoking End Date: Dec 2008 Hx Alcohol Use: Yes Alcohol type: beer, wine and hard liquor alcohol intake frequency: a few times a week Hx Substance Use: No substance use type: does not use Review of Systems Infrequent snoring, denies witnessed apneas. Patient denies chest pain, shortness of breath, dyspnea on exertion, fever, chills, cough, wheezing, or palpitations. Physical Exam Vital Signs Vitals BP 114/61 P 84 TEMP 99.1 SP02 98% on RA RESP 17 Physical Full cervical extension range of motion without pain TMD 3.5 finger breaths Mallampati Score 3 Dentition: intact, denies missing, chipped or loose teeth, caps/crowns, implants or bridges Lungs: normal respiratory effort. Clear throughout to auscultation, no adventitious breath sounds Cardiac: regular rate and rhythm, no murmurs noted Carotid arteries: negative bruit bilat Lab Results Anesthesia Preop Results Results Anesthesia Widget: WBC 7.91 K/uL (4.8-10.8) 07/26/21 Hgb 11.8 g/dL (12.0-16.0) L 07/26/21 Hct 38.4 % (37-47) 07/26/21 Plt 335 K/uL (130-400) 07/26/21 Na 141 mmol/L (136-145) 07/26/21 K 5.4 mmol/L (3.5-5.1) H 07/26/21 Cl 106 mmol/L (98-107) 07/26/21 CO2 29 mmol/L (21-32) 07/26/21 BUN 11 mg/dl (6-23) 07/26/21 Creat 0.80 mg/dl (0.6-1.2) 07/26/21 Glucose Level 111 mg/dl (70-99(Fasting)) H 07/26/21 PT 10.5 Seconds (9.0-12.0) 07/26/21 PTT 25.9 Seconds (21.0-31.0) 07/26/21 INR 1.0 (0.9-1.1) 07/26/21 HA1c 6.1 % (4.5-5.6) H 07/26/21 Urine Color Dark Yellow 07/26/21 Urine Appearance Clear (Clear) 07/26/21 Urine pH 5.5 (4.5-7.5) 07/26/21 Urine Specific [place] 1.031 (1.000-1.030) H 07/26/21 Urine Protein Negative (Negative) 07/26/21 Urine Glucose (UA) Negative (Negative) 07/26/21 Urine Ketones Trace (Negative) H 07/26/21 Urine Blood Negative (Negative) 07/26/21 Urine Nitrite Negative (Negative) 07/26/21 Urine Bilirubin Negative (Negative) 07/26/21 Urine Urobilinogen Negative (Negative) 07/26/21 Urine Leukocyte Esterase Negative (Negative) 07/26/21 Blood Type A Positive 07/26/21 Antibody Screen POSITIVE A 07/26/21 Testing Electrocardiogram Date: 07/26/21 NSR, rate 75 bpm Chest X-Ray Date: 07/26/21 The cardiomediastinal and hilar silhouettes are within normal limits. No pneumothorax, pleural effusion, airspace consolidation or overt pulmonary edema. Unchanged right perihilar opacity likely secondary to pulmonary vasculature. Degenerative changes of the shoulders and spine with lower thoracic levoscoliosis. IMPRESSION: No acute process. Echocardiogram Date: 10/31/19 EF 65-70% No regional wall motion abnormalities No significant valvular abnormalities Type 2 diastolic dysfunction Stress Test Date: 08/23/18 Exercise MPHR 95% METS 7 Normal, without inducible ischemia
[~2021-08-09 06:23] MED LIST changes: +ACETAMINOPHEN 500 MG TAB PO SCH; -AMIT50TA3 PO; -ARC10 PO; -BUPR-269 PO; -CYM30 PO; +CeleBREX 200 MG CAP PO SCH; -DICL50TA3 PO; +GABAPENTIN 300 MG CAP PO SCH; -LEVO112T2 PO; -LIOT25TA8 PO; +LR 15ML/HR IV SCH; -METF1000 PO; -MISO200T PO; +ceFAZolin 2000MG 2,000 MG/15 ML SYR IV SCH
[2021-08-09] MEDS ORDERED: GLYCOPYRROLATE 0.2 MG/ML VIAL ONE (06:42)
[2021-08-09] MEDS ORDERED: ROCURONIUM BROMIDE 10 MG/ML 5 ML VIAL IV ONE ×3 (06:42→08:30)
[2021-08-09] MEDS ORDERED: fentaNYL citrate 100 MCG/2 ML VIAL ONE (06:42)
[2021-08-09] MEDS ORDERED: MIDAZOLAM HCL 1 MG/ML 2ML VIAL ONE (06:42)
[2021-08-09] MEDS ORDERED: LIDOCAINE 2% 2 ML VIAL/AMP(20MG/ML) INFIL ONE (06:42)
[2021-08-09] MEDS ORDERED: NEOSTIGMINE METHYLSULFATE 1 MG/ML 10ML VIAL ONE (06:42)
[2021-08-09] MEDS ORDERED: ONDANSETRON INJ 2 MG/ML 2 ML VIAL ONE (06:42)
[2021-08-09] MEDS ORDERED: DEXAMETHASONE SOD INJ 4 MG/ML VIAL ONE (06:42)
[2021-08-09] MEDS ORDERED: PROMETHAZINE HCL 12.5 MG in SODIUM CHLORIDE 0.9% 50 ML IV PRN ×2 (07:16→11:28)
[2021-08-09] MEDS ORDERED: ATROPINE SULFATE 0.1 MG/ML 10ML SYR IV PRN (07:16)
[2021-08-09] MEDS ORDERED: ONDANSETRON INJ 2 MG/ML 2 ML VIAL IV PRN ×2 (07:16→11:28)
[2021-08-09] MEDS ORDERED: LABETALOL HCL IV 5 MG/ML 20ML IV PRN (07:16)
--- NOTE | 2021-08-09 07:32 | History & Physical Bridge Note ---
Date of Service August 09, 2021 History & Physical Bridge Note I have examined the patient, reviewed the History & Physical and in the interval since the performance of the History & Physical I have noted the following changes of clinical significance: no changes noted
[2021-08-09] MEDS ORDERED: BUPIVACAINE/EPINEPHRINE 0.25% 1:200,000 30 ML VIAL ONE (07:34)
[2021-08-09] MEDS ORDERED: ceFAZolin 330 MG/ML 1 GM VIAL ONE (07:34)
--- NOTE | 2021-08-09 07:35 | History & Physical Report ---
Date of Service August 09, 2021 Assessment & Plan (1) Neurogenic claudication due to lumbar spinal stenosis: Plan: L2-L3 decompression fusion History of Present Illness Chief Complaint: Back and leg pain Primary Care Provider: Yusef Land III, [place] This is a 58-year-old female presents with chronic persistent back and leg pain after failing course of nonoperative care she is here for surgical invention. Allergies Allergy/AdvReac Type Severity Reaction Status Date / Time amantadine Allergy Intermediate GI UPSET Verified 08/09/21 06:45 doxycycline Allergy Intermediate GI UPSET Verified 08/09/21 06:45 Home Medications Medication Instructions Recorded Confirmed Type aspirin 81 mg tablet,delayed 81 mg PO QAM 10/30/19 08/09/21 History release (Aspir-) Knee Scooter #1 ea 10/04/20 08/04/21 Rx dulaglutide 0.75 mg/0.5 mL 0.75 mg SQ SA@0800 #6 ml 10/25/20 08/09/21 Rx subcutaneous pen injector (Trulicity) topiramate 25 mg tablet 25 mg PO DAILY #90 tab 12/14/20 08/09/21 Rx buspirone 7.5 mg tablet 7.5 mg PO BID #60 tab 02/06/21 08/09/21 Rx atorvastatin 20 mg tablet 20 mg PO QAM #90 tab 02/20/21 08/09/21 Rx donepezil 10 mg tablet (Aricept) 10 mg PO HS #90 tab 02/20/21 08/09/21 Rx duloxetine 30 mg capsule,delayed 30 mg PO QAM #90 cap 03/22/21 08/09/21 Rx release metformin 1,000 mg tablet 1,000 mg PO BID #180 tab 03/22/21 08/09/21 Rx celecoxib 100 mg capsule (Celebrex) 100 mg PO BID #180 cap 05/25/21 08/09/21 Rx mirtazapine 15 mg tablet 15 mg PO HS PRN 07/24/21 08/09/21 History bupropion HCl 200 mg tablet,12 hr 200 mg PO BID #180 ea 07/31/21 08/09/21 Rx sustained-release (Wellbutrin SR) levothyroxine 100 mcg tablet 100 mcg PO QAM #90 tab 07/31/21 08/09/21 Rx (Synthroid) oxycodone-acetaminophen 5 mg-325 1 tab PO TID PRN #90 tab 08/03/21 08/09/21 Rx mg tablet (Endocet) Past Med/Surg History Medical History Abdominal muscle defects Benign essential tremor Concussion Dementia Depression Foot fracture, right GERD (gastroesophageal reflux disease) Hyperlipidemia Hypothyroid Left foot drop Lumbar spinal stenosis Opiate dependence Other intervertebral disc degeneration, lumbar region Retinal tear of left eye TIA (transient ischemic attack) Transaminitis Type 2 diabetes mellitus Surgical History H/O cataract extraction H/O resection of small bowel History of section History of colonoscopy Status post left partial knee replacement Status post right partial knee replacement [place] teeth extracted Family History Mother Coronary heart disease stents Father , age 49 of brain cancer Brain cancer Brother Throat cancer S/p nephrectomy for RCC Brother Myocardial infarction Denies family history of Ovarian cancer Prostate cancer Colorectal cancer Social History Smoking Status: Never smoker Tobacco Type: Cigarettes Age Started Using Tobacco: 39; Age Quit Using Tobacco: 53; packs per day: 0.5; Years Smoked: 11; Cigarettes Per Day: 10; Smoking End Date: Dec 2008; Second Hand Exposure: No; Do You Dip or Chew Tobacco: No; Tobacco Cessation Education Requested by Patient: No Hx Alcohol Use: Yes Alcohol type: wine Alcohol Intake Frequency: 4 or More x per/Week Alcohol Intake Frequency Comment: 2 glasses each time Hx Substance Use: No Preferred Language: Occitan Communication Ability: Effective Visual Impairment: No Limitations Hearing Ability: Normal Respiratory Therapist Assistant Required: No Beliefs That Will Affect Care: None marital status: Current Living Situation: Spouse current occupational status: retired current occupation: Retired 2016 from [employer] How many Children do You have: 2 Other Information That Helps Us Care for You: No 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 Feels Safe at Home: Yes Safety Concerns: Feels Safe At This Time Childhood Exposure to Second-Hand Smoke: No caffeine: Yes during the past year weight has: remained stable Dental Care, Regularly: Yes Physical Activity Frequency: 3-4 Times per Week Seatbelt Use: always Sunscreen Use: Yes Assistive Devices: Glasses Physical Exam Physical Exam: Patient is alert and oriented Heart regular rate and rhythm Lungs clear Results & Data Results & Data ([facility]) Vital Signs (Past 12 Hours) Vital Signs Temp Pulse Resp BP Pulse Ox 08/09/21 06:50 37.2 C 75 18 137/74 95
[2021-08-09] MEDS ORDERED: ePHEDrine sulfate 50 MG/ML AMP ONE (08:23)
[2021-08-09] MEDS ORDERED: FLOSEAL HEMOSTATIC MATRIX 10ML TOP ONE (08:33)
[2021-08-09] MEDS: HYDROmorphone INJ 1 MG/ML SYRINGE IV PRN ×4 (08:44→19:48)
--- NOTE | 2021-08-09 09:12 | Operative Report ---
Post Operative Report Pre & Post Diagnosis Operation Date: 08/09/21 07:45 Pre-Op Diagnosis: Spinal Stenosis of Lumbar Region with Radiculopathy Post-Op Diagnosis: Spinal Stenosis of Lumbar Region with Radiculopathy I identified the patient and participated in the time-out.: Yes Procedure Operation Date: 08/09/21 07:45 Actual Procedures Lumbar decompression bilateral medial facetectomies and foraminotomies L2-L3. #2 posterior spinal fusion L2-L3. #3 placement posterior instrumentation L2-L3. #4 interbody fusion L2-L3. #5 placement of Spira 12 x 26 mm cage at L2-L3. #6 placement locally harvested morselized autograft in the posterior gutters. #7 placement I factor model V toss in interbody space and posterior lateral gutters. Surgeon Jona Jenkins DO Wireless Sales Expert Meka Roman Estimated Blood Loss 50 Findings Consistent with Post-Op Diagnosis Specimens None Indications This is a 66-year-old female who presents with above-mentioned diagnosis after failing since course of nonoperative care she is here for surgical invention. Description of Procedure Patient is met with identified informed consent obtained. Patient was then taken to the operative suite underwent a patient placed in a prone position the [place] table top Gus frame. All bony prominences well-padded eyes inspected to ensure no external pressure placed monitor at this point the lumbar spine was prepped and draped in a sterile fashion. Sharp dissection with the assistance pericardial performed down to and exposing the lamina and transverse processes of L2-L3. From caudal cephalad fashion complete laminectomy of L2 including bilateral medial facetectomies and foraminotomies were performed addressing all neural compression. Pedicle screws were then placed in L2-L3 bilaterally with assistance of fluoroscopy and proper sized tone placed. By way of a transforaminal approach on the right complete discectomy of L to L3 was performed endplates curetted to subcortically bone and a 12 x 26mm spiral cage 12 factor tapped in position. The rods then compressed locked in final position bilaterally. The transverse processes of L2-L3 burred to subcortically bone. I factor combined with V toss and locally harvested morselized autograft was then placed in the posterior gutters. 15 round JAYLYN drain inserted. The incision was then closed with 1 Vicryl the fascia 2-0 Vicryl subcutaneously and 4 Monocryl for final skin closure. Steri-Strip sterile dressings placed. Patient waken taken PACU stable condition. Please note spinal cord monitoring visualized at the procedure no changes noted. Lastly Meka Roman was present at the entire surgery and while the patient positioning complex portions of the surgery and final skin closure. I attest to the content of the Intraoperative Record and any orders documented therein. Any exceptions are noted below.
--- NOTE | 2021-08-09 09:29 | Fluoroscopy Report ---
FL lumbar spine 2-3V CLINICAL HISTORY: L2-L3 decompression and fusion COMPARISON STUDY: Lumbar spine MRI 05/18/2021. FLUOROSCOPY TIME: 20 seconds. FINDINGS: 2 fluoroscopic spot images of the lumbar spine were submitted for review. Exact level is di fficult to determine due to the spot image but appears to represent posterior decompression and fusio n at L2-L3 with pedicle screws and rods. A disc spacer is in place. The hardware appears intact. IMPRESSION: Fluoroscopic assistance provided for L2-L3 posterior decompression and fusion ACT 112: Negative or not required by law. Electronically signed by: Manuelito Baum M.D. 08/09/2021 9:28 AM
--- NOTE | 2021-08-09 10:18 | Anesthesiology Progress Note ---
Date of Service August 09, 2021 Anesthesia Post Procedure Vital Signs Vital Signs: Temp Pulse Pulse Resp BP Pulse Ox 08/09/21 10:10 36.2 C L 95 H 15 135/81 96 08/09/21 10:00 96 H 14 126/70 94 08/09/21 09:50 99 H 20 137/72 93 08/09/21 09:40 102 H 17 173/127 H 96 08/09/21 09:31 36.9 C 109 H 16 189/101 H 96 08/09/21 06:50 37.2 C 75 18 137/74 95 Pain Intensity Back: Pain Intensity: 4 Transfer of Care Handoff Completed per policy Notes Mental Status: alert / awake / arousable Patient Amnestic to Procedure: Yes Nausea / Vomiting: adequately controlled Pain: adequately controlled Airway Patency, RR, SpO2: stable & adequate BP & HR: stable & adequate Hydration State: stable & adequate Anesthetic Complications: no major complications apparent
[2021-08-09] MEDS ORDERED: METOCLOPRAMIDE HCL INJ 5 MG/ML 2 ML VIAL IV PRN (11:28)
[2021-08-09] MEDS ORDERED: bisacodyL 10 MG SUPP PR PRN (11:28)
[2021-08-09] MEDS ORDERED: ALUMINUM/MAGNESIUM SUSP 30 ML UDC PO PRN (11:28)
[2021-08-09] MEDS ORDERED: hydrOXYzine HCl 25 MG TAB PO PRN (11:28)
[2021-08-09] MEDS ORDERED: NALOXONE HCL 0.4 MG/1 ML VIAL/CARP IV PRN (11:28)
[2021-08-09] MEDS ORDERED: MIRTAZAPINE TAB 15 MG TAB PO PRN (11:28)
[2021-08-09] MEDS ORDERED: DO NOT ADMINISTER FLU VACCINE PRN (11:28)
[2021-08-09] MEDS ORDERED: LORazepam 0.5 MG TAB PO PRN (11:28)
[2021-08-09] MEDS ORDERED: DO NOT ADMINISTER PNEUMOCOCCAL VACCINE PRN (11:28)
[2021-08-09] MEDS ORDERED: MAGNESIUM HYDROXIDE SUSP 30 ML UDC PO PRN (11:28)
[2021-08-09] MEDS ORDERED: FAMOTIDINE 20 MG TAB PO PRN (11:28)
[2021-08-09] MEDS ORDERED: ONDANSETRON 4 MG OD TAB PO PRN (11:28)
[2021-08-09] MEDS ORDERED: SOD PHOSPHATE/SOD BIPHOSPHATE ENEMA 132 ML BTL PR PRN (11:28)
[2021-08-09] MEDS ORDERED: LORazepam 2 MG/1 ML VIAL IV PRN (11:28)
[2021-08-09] MEDS ORDERED: ACETAMINOPHEN 1,000 MG/100 ML VIAL IV PRN (11:28)
[2021-08-09] MEDS ORDERED: traMADol HCL 50 MG TABLET PO PRN (11:28)
[2021-08-09] MEDS ORDERED: PHARMACY GLYCEMIC MGMT CONSULT PRN (11:28)
[2021-08-09] MEDS ORDERED: CARBOHYDRATES FOR HYPOGLYCEMIA PO PRN (12:15)
[2021-08-09] MEDS ORDERED: DEXTROSE 50% 50 ML SYRINGE IV PRN (12:15)
[2021-08-09] MEDS ORDERED: GLUCOSE 10 TABS/TUBE PO PRN (12:15)
[2021-08-09] MEDS ORDERED: GLUCAGON FOR INJ 1 MG VIAL IM PRN (12:15)
[2021-08-09] MEDS ORDERED: GLUCOSE 40% GEL 15 GM TUBE PO PRN (12:15)
[2021-08-09] MEDS: oxyCODONE HCL IR 5 MG TAB (IMMEDIATE RELEASE) PO PRN ×3 (13:47→21:59)
[2021-08-09] MEDS: SODIUM CHLORIDE 0.9% 1000ML 1,000 ML IV SCH ×2 (13:47→21:57)
--- NOTE | 2021-08-09 14:26 | Consultation ---
Date of Consultation August 09, 2021 Assessment & Plan (1) Neurogenic claudication due to lumbar spinal stenosis: s/p L2-L3 lumbar decompression-fusion by Dr Jenkins today. Defer pain management, IV fluids, disposition to Dr Jenkins's team. (2) Hyperlipidemia: Cont lipitor (3) HTN (hypertension): not on meds at home for such trend BPs (4) Dementia: quite young for such - related to chronic etoh use? will supplement thiamine 200mg BID will supplement folate cont aricept (5) Benign essential tremor: (6) GERD (gastroesophageal reflux disease): pepcid prn (7) Type 2 diabetes mellitus: check BSGs ac/hs DM diet novolog SSI prn and lantus - defer to pharmacy - they were consulted for glycemic management hold metformin (8) Hypothyroid: TSH 1.2 in 01/2021 cont synthroid (9) Alcohol use: supplement thiamine supplement folate watch for any signs of withdrawal Thank you for this consult. Will follow with you. History of Present Illness Requesting Physician: Trevor Jenkins DO Reason for Consultation: post-op medical management Attending Physician: Jona Jenkins, History of Present Illness 66yo female with hypothyroidism, T2DM, prior tobacco use (quit 2008), and alcohol use who presented today for elective lumbar decompression-fusion procedure of L2-L3 by Dr Trevor Jenkins. She had been having RLE radicular pain for some time and despite nonoperative management her pain had persisted. I saw her on the orthopedic floor post-op and she was resting comfortably. at bedside. She reports that her glycemic control at home is quite good with most BSGs in the 90s to low 100s. She does use alcohol several times each week - typically at least a few glasses of wine each time. No history of etoh withdrawal. Allergies Allergy/AdvReac Type Severity Reaction Status Date / Time amantadine Allergy Intermediate GI UPSET Verified 08/09/21 06:45 doxycycline Allergy Intermediate GI UPSET Verified 08/09/21 06:45 Home Medications Medication Instructions Recorded Confirmed Type aspirin 81 mg tablet,delayed 81 mg PO QAM 10/30/19 08/09/21 History release (Aspir-) Knee Scooter #1 ea 10/04/20 08/04/21 Rx dulaglutide 0.75 mg/0.5 mL 0.75 mg SQ SA@0800 #6 ml 10/25/20 08/09/21 Rx subcutaneous pen injector (Trulicity) topiramate 25 mg tablet 25 mg PO DAILY #90 tab 12/14/20 08/09/21 Rx buspirone 7.5 mg tablet 7.5 mg PO BID #60 tab 02/06/21 08/09/21 Rx atorvastatin 20 mg tablet 20 mg PO QAM #90 tab 02/20/21 08/09/21 Rx donepezil 10 mg tablet (Aricept) 10 mg PO HS #90 tab 02/20/21 08/09/21 Rx duloxetine 30 mg capsule,delayed 30 mg PO QAM #90 cap 03/22/21 08/09/21 Rx release metformin 1,000 mg tablet 1,000 mg PO BID #180 tab 03/22/21 08/09/21 Rx celecoxib 100 mg capsule (Celebrex) 100 mg PO BID #180 cap 05/25/21 08/09/21 Rx mirtazapine 15 mg tablet 15 mg PO HS PRN 07/24/21 08/09/21 History bupropion HCl 200 mg tablet,12 hr 200 mg PO BID #180 ea 07/31/21 08/09/21 Rx sustained-release (Wellbutrin SR) levothyroxine 100 mcg tablet 100 mcg PO QAM #90 tab 07/31/21 08/09/21 Rx (Synthroid) oxycodone-acetaminophen 5 mg-325 1 tab PO TID PRN #90 tab 08/03/21 08/09/21 Rx mg tablet (Endocet) Patient History Medical History Abdominal muscle defects Benign essential tremor Concussion 2017 Dementia Depression hx Foot fracture, right GERD (gastroesophageal reflux disease) controlled, stable per pt Hyperlipidemia Hypothyroid Left foot drop Lumbar spinal stenosis Opiate dependence Other intervertebral disc degeneration, lumbar region Retinal tear of left eye with repair TIA (transient ischemic attack) >5 yrs, unsure when had, was found on CT scan per pt, pt can't recall details Transaminitis Type 2 diabetes mellitus NIDDM Surgical History H/O cataract extraction bilateral H/O resection of small bowel for SBO History of section x2 History of colonoscopy Status post left partial knee replacement Status post right partial knee replacement [place] teeth extracted Family History Mother Coronary heart disease stents Mood disorder Father , age 49 of brain cancer Brain cancer Brother Throat cancer S/p nephrectomy for RCC Brother Myocardial infarction Denies family history of Ovarian cancer Prostate cancer Colorectal cancer Social History (Updated 08/09/21 @ 15:30 by Clive Giang) Smoking Status: Former smoker Tobacco Type: Cigarettes Age Started Using Tobacco: 39; Age Quit Using Tobacco: 53; packs per day: 0.5; Years Smoked: 11; Cigarettes Per Day: 10; Smoking End Date: Dec 2008; Second Hand Exposure: No; Do You Dip or Chew Tobacco: No; Tobacco Cessation Education Requested by Patient: No Hx Alcohol Use: Yes Alcohol type: wine Alcohol Intake Frequency: 4 or More x per/Week Alcohol Intake Frequency Comment: 2 glasses each time Hx Substance Use: No Preferred Language: French Communication Ability: Effective Visual Impairment: No Limitations Hearing Ability: Normal Career Development Director Required: No Beliefs That Will Affect Care: None marital status: Current Living Situation: Spouse current occupational status: retired 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 Feels Safe at Home: Yes Safety Concerns: Feels Safe At This Time Childhood Exposure to Second-Hand Smoke: No caffeine: Yes during the past year weight has: remained stable Dental Care, Regularly: Yes Physical Activity Frequency: 3-4 Times per Week Seatbelt Use: always Sunscreen Use: Yes Assistive Devices: Glasses Review of Systems Review of Systems: gen - no fevers or chills, good appetite, no recent weight change eyes - no visual changes HENT - no dysphagia, mild sore throat CV - no chest pain pulm - no cough or dyspnea GI - no nausea or emesis; no abd pain - no urinary symptoms musculo - chronic low back pain; RLE radicular pain neuro - no headache skin - no rash endo - good glycemic control of DM Physical Exam Physical Exam: gen - NAD, pleasant eyes - PERRL HENT - MMM, no lesions neck - no JVD heart - RRR, s1 s2, no murmur lungs - CTA b/l abd - soft NT ND BS+ ext - no edema, pulses 2+ b/l neuro - strength 5/5 x 4 exts skin - no rash psych - a/o x 3 Results & Data ([facility]) Vital Signs (Past 12 Hours) Vital Signs Temp Pulse Pulse Resp BP BP Pulse Ox 08/09/21 14:10 36.4 C L 86 18 142/74 H 94 08/09/21 13:20 37.6 C H 88 16 134/75 97 08/09/21 13:00 80 20 142/81 H 94 08/09/21 12:45 83 17 122/70 94 08/09/21 12:30 36.9 C 83 17 143/91 H 95 08/09/21 12:15 88 20 131/84 93 08/09/21 12:00 84 12 140/86 92 08/09/21 11:45 85 12 136/80 93 08/09/21 11:30 92 H 18 137/89 94 08/09/21 11:15 89 16 136/66 92 08/09/21 11:00 88 21 135/90 95 08/09/21 10:45 104 H 24 130/78 96 08/09/21 10:30 92 H 12 138/67 95 08/09/21 10:20 92 H 14 131/68 94 08/09/21 10:10 36.2 C L 95 H 15 135/81 96 08/09/21 10:00 96 H 14 126/70 94 08/09/21 09:50 99 H 20 137/72 93 08/09/21 09:40 102 H 17 173/127 H 96 08/09/21 09:31 36.9 C 109 H 16 189/101 H 96 08/09/21 06:50 37.2 C 75 18 137/74 95 Laboratory Results Labs 08/09/21 08/09/21 08/09/21 06:37 06:45 06:53 POC Glucose 102 H SARS-CoV-2, RNA, NAAT NEGATIVE Blood Type A Positive Antibody Screen POSITIVE A Antibody Identification Anti-M Antibody ID Comment Crossmatch See Detail 08/09/21 08/09/21 09:43 13:49 POC Glucose 136 H 176 H SARS-CoV-2, RNA, NAAT Blood Type Antibody Screen Antibody Identification Antibody ID Comment Crossmatch 07/26/21 - HbA1C 6.1% Diagnostic Findings Lumbar Spine X-Ray 08/09/21 07:45 FL lumbar spine 2-3V CLINICAL HISTORY: L2-L3 decompression and fusion COMPARISON STUDY: Lumbar spine MRI 05/18/2021. FLUOROSCOPY TIME: 20 seconds. FINDINGS: 2 fluoroscopic spot images of the lumbar spine were submitted for review. Exact level is difficult to determine due to the spot image but appears to represent posterior decompression and fusion at L2-L3 with pedicle screws and rods. A disc spacer is in place. The hardware appears intact. IMPRESSION: Fluoroscopic assistance provided for L2-L3 posterior decompression and fusion ACT 112: Negative or not required by law. Electronically signed by: Manuelito Baum M.D. 08/09/2021 9:28 AM PG Care Time/CCT Total # of Minutes Spent Total Time Spent with Patient: Total time spent is greater than 50% in coordination of care (as documented) at patient's floor/unit and/or counseling patient: Coding Level of Care Code 20560 Subseq Hosp Care Lvl 3 Diagnoses Neurogenic claudication due to lumbar spinal stenosis M48.062 Hyperlipidemia E78.2 Hyperlipidemia type: mixed hyperlipidemia HTN (hypertension) I10 Hypertension type: unspecified Dementia F03.90 Dementia behavioral disturbance: without behavioral disturbance Dementia type: unspecified type Benign essential tremor G25.0 GERD (gastroesophageal reflux disease) K21.9 Esophagitis presence: esophagitis presence not specified Type 2 diabetes mellitus E11.9 Diabetes mellitus complication status: without complication Diabetes mellitus half-way insulin use: without 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2 - Mixed hyperlipidemia (4) Hypothyroid Hypothyroidism type: acquired Qualified Code(s): E03.9 - Hypothyroidism, unspecified (5) GERD (gastroesophageal reflux disease) Esophagitis presence: esophagitis presence not specified Qualified Code(s): K21.9 - Gastro-esophageal reflux disease without esophagitis (6) HTN (hypertension) Hypertension type: unspecified Qualified Code(s): I10 - Essential (primary) hypertension
[2021-08-09] MEDS: HYDROmorphone INJ 0.5 MG/0.5 ML SYR IV PRN (14:27)
--- NOTE | 2021-08-09 14:39 | Pharmacy Report ---
Pharmacy Glycemic Short Note 2 - Date of Service August 09, 2021 - Glycemic Short BSG Results (Last 24 hours): 08/09/21 08/09/21 08/09/21 06:45 09:43 13:49 POC Glucose 102 H 136 H 176 H OUTPATIENT ANTIDIABETIC REGIMEN: * Metformin 1000 mg PO BIDM * Trulicity 0.75 mg SC weekly (Saturdays) * HbA1c: 6.1% (07/26/21) ASSESSMENT: * DF is a 66 year old female POD #0 s/p L2-3 decompression/fusion * Dexamethasone 8 mg IV x 1 given perioperatively * Dexamethasone 6 mg IV daily to be ordered ongoing postoperatively to start tomorrow * Preoperative BSG of 102 mg/dL, postoperative BSG of 176 mg/dL PLAN FOR INPATIENT GLYCEMIC CONTROL: * Hold outpatient oral diabetes medications * Basal insulin * Lantus 30 units SC daily * Bolus insulin * NovoLog per scale ACHS or Q6hrs while NPO * Goal Range: Low 110 mg/dL - High 140 mg/dL * Correction Factor: 15 mg/dL/unit * Nutritional / Prandial insulin per carb ratio of 1 unit per 6 grams CHO consumed
[2021-08-09] MEDS ORDERED: INSULIN GLARGINE SOLOSTAR 100 UNITS/ML 3 ML PEN SC ONE (14:45)
[2021-08-09] MEDS: INSULIN ASPART PER UNIT SC SCH ×3 (15:01→22:03)
[2021-08-09] MEDS ORDERED: COUGH DROP (SUGAR FREE) LOZ 24 LOZ/1 BOX BUCCAL PRN (15:31)
[2021-08-09] MEDS: ceFAZolin 2000MG 2,000 MG/15 ML SYR IV SCH (16:15)
[2021-08-09] MEDS: THIAMINE HCL 100 MG TAB PO SCH (21:52)
[2021-08-09] MEDS: busPIRone 7.5 MG TAB PO SCH (21:52)
[2021-08-09] MEDS: DONEPEZIL HCL 10 MG TAB PO SCH (21:53)
[2021-08-09] MEDS: buPROPion SR 100 MG TABCR PO SCH (21:55)
[2021-08-09] MEDS: DOCUSATE SODIUM/SENNA 50/8.6MG TAB PO SCH (21:58)
[2021-08-09] MEDS: diphenhydrAMINE Capsule 25 MG CAP PO PRN (21:59)
[2021-08-09] MEDS: ACETAMINOPHEN 500 MG TAB PO PRN (21:59)
[2021-08-10] MEDS: ceFAZolin 2000MG 2,000 MG/15 ML SYR IV SCH (00:46)
[2021-08-10] MEDS: HYDROmorphone INJ 1 MG/ML SYRINGE IV PRN (01:03)
[2021-08-10] MEDS: LEVOTHYROXINE SODIUM 100 MCG TABLET PO SCH (05:27)
[2021-08-10] MEDS: ACETAMINOPHEN 500 MG TAB PO PRN ×2 (05:34→19:33)
[2021-08-10] MEDS: oxyCODONE HCL IR 5 MG TAB (IMMEDIATE RELEASE) PO PRN ×4 (05:35→19:34)
[2021-08-10] MEDS: POLYETHYLENE (MIRALAX) 17 GM PACK PO SCH ×3 (05:37→18:26)
[2021-08-10 06:29] LABS: Basophils # (auto) 0.01 K/uL (0-0.2); Basophils % (auto) 0.1 %; Hematocrit (blood only) 32.7 % (37-47); Hemoglobin 10.2 g/dL (12.0-16.0); Immature Granulocytes # (auto) 0.07 K/uL (0.00-0.02); Immature Granulocytes % (auto) 0.5 %; Lymphocytes # (auto) 2.39 K/uL (1.2-3.4); Lymphocytes % (auto) 16.1 %; Mean Corpuscular Hemoglobin 27.6 pg (25-34); Mean Corpuscular Hgb Conc 31.2 g/dL (32-36); Mean Corpuscular Volume 88.6 fL (80-100); Mean Platelet Volume 10.2 fL (7.4-10.4); Monocytes # (auto) 1.85 K/uL (0.11-0.59); Monocytes % (auto) 12.4 %; Neutrophils # (auto) 10.56 K/uL (1.4-6.5); Neutrophils % (auto) 70.9 %; Platelet Count 274 K/uL (130-400); RDW Coefficient of Variation 14.7 % (11.5-14.5); RDW Standard Deviation 48.3 fL (36.4-46.3); Red Blood Count 3.69 M/uL (4.2-5.4); White Blood Count 14.88 K/uL (4.8-10.8)
[2021-08-10 06:53] LABS: BUN Creatinine Ratio 9.5 (10-20); Creatinine Clr Calc Pharmacy 86.1 ml/min; Est GFR (African American) 96.5 ml/min; Est GFR (Non-African American) 83.2 ml/min; Potassium 4.5 mmol/L (3.5-5.1)
[2021-08-10] MEDS ORDERED: INSULIN GLARGINE SOLOSTAR 100 UNITS/ML 3 ML PEN SC SCH (09:00)
[2021-08-10] MEDS: INSULIN ASPART PER UNIT SC SCH ×4 (09:03→21:18)
[2021-08-10] MEDS: ASPIRIN 81 MG ECTAB PO SCH (09:07)
[2021-08-10] MEDS: ATORVASTATIN 20 MG TAB PO SCH (09:07)
[2021-08-10] MEDS: dexAMETHasone 6 MG in SYRINGE 0 ML IV SCH (09:07)
[2021-08-10] MEDS: buPROPion SR 100 MG TABCR PO SCH ×2 (09:07→21:11)
[2021-08-10] MEDS: busPIRone 7.5 MG TAB PO SCH ×3 (09:07→21:11)
[2021-08-10] MEDS: TOPIRAMATE 25 MG TAB PO SCH (09:08)
[2021-08-10] MEDS: DULoxetine HCL 30 MG CAP PO SCH (09:08)
[2021-08-10] MEDS: FOLIC ACID 1 MG TAB PO SCH (09:08)
[2021-08-10] MEDS: THIAMINE HCL 100 MG TAB PO SCH ×2 (09:08→21:11)
--- NOTE | 2021-08-10 09:54 | Orthopedic Progress Note ---
Date of Service August 10, 2021 Assessment & Plan (1) Neurogenic claudication due to lumbar spinal stenosis: Plan: Ratna will start physical therapy today. Maintain JAYLYN drain. DVT prophylaxis is in the form of teds and SCDs. Continue with pain control. I have discharged continue the tramadol. Anticipate discharge home within the next 24 to 48 hours. Admission and Anticipated Discharge Date Admission Date: August 09, 2021 Guicho Segundo is postoperative day 1 status post TLIF L2-3. She is doing well. Leg symptoms improved. Back pain controlled. H&H is morning are 10.2 and 32.7 respectively. JAYLYN drain output last shift was 55 cc. She is had an uneventful evening. She is requesting that her tramadol be stopped as she states this has never been able to control her pain. Review of Systems Review of Systems: All systems reviewed & are unremarkable except as noted in HPI & below Physical Exam Physical Exam: She is lying in bed in no acute distress Alert and oriented x3 Lumbar dressing is clean dry and intact with functioning JAYLYN drain Calf soft nontender bilateral lower extremities Strength intact bilateral lower extremities Results & Data ([facility]) Vital Signs (Past 12 Hours) Vital Signs Temp Pulse Resp BP Pulse Ox 08/10/21 07:51 37.0 C 78 16 131/78 96 08/10/21 02:34 37.7 C H 87 16 145/77 H 93 08/09/21 22:00 37.3 C 99 H 18 151/70 H 93
--- NOTE | 2021-08-10 12:13 | Hospitalist Progress Note ---
Date of Service August 10, 2021 Assessment & Plan (1) Neurogenic claudication due to lumbar spinal stenosis: Plan: POD #1 s/p L2-L3 lumbar decompression-fusion by Dr Jenkins. Defer pain management and disposition to Dr Jenkins's team. Overall stable from ortho standpoint. mild acute blood loss anemia - about a 2gm drop. (2) Hyperlipidemia: Plan: Cont lipitor (3) HTN (hypertension): Plan: not on meds at home for such some mild elevations at times - likely pain related would not start anti-hypertensive meds at this time simply Rx her pain (4) Dementia: Plan: quite young for such - related to chronic etoh use? cont thiamine 200mg BID cont folate cont aricept would send home with the above meds at d/c (5) Benign essential tremor: (6) GERD (gastroesophageal reflux disease): Plan: pepcid prn (7) Type 2 diabetes mellitus: Plan: glycemic control is excellent appreciate pharmacy consult and recs/management (8) Hypothyroid: Plan: TSH 1.2 in 01/2021 cont synthroid (9) Alcohol use: Plan: supplement thiamine supplement folate watch for any signs of withdrawal - thus far none seen Plan: updated at bedside encouraged her to use incentive taz more frequently Admission and Anticipated Discharge Date Admission Date: August 09, 2021 Subjective no events overnight back pain is biggest issue - she has discussed this with the primary ortho team RLE radicular pain is resolved eating well no dyspnea at rest or with exertion passing flatus; no stool yet hoping for d/c home tomorrow Review of Systems Review of Systems: gen - good appetite, despite low-grade temps no chills cv - no cp, no orthopnea pulm - no cough GI - no nausea or emesis Physical Exam Physical Exam: gen - NAD HENT - MMM neck - no JVD heart - RRR, s1 s2, no murmur lungs - CTA b/l but decreased BS bases abd - soft NT ND BS+ ext - no edema, pulses 2+ b/l psych - a/o x 3 Results & Data Results & Data ([facility]) Vital Signs (Past 12 Hours) Vital Signs Temp Pulse Resp BP Pulse Ox 08/10/21 07:51 37.0 C 78 16 131/78 96 08/10/21 02:34 37.7 C H 87 16 145/77 H 93 Laboratory Results Laboratory Results - last 24 hr 08/10/21 08/10/21 08/10/21 05:56 12:16 17:20 POC Glucose 124 H 136 H Hepatitis C Ab (EIA) NON-REACTIVE Hep C Ab Signal/Cutoff 0.00 08/10/21 20:55 POC Glucose 135 H Hepatitis C Ab (EIA) Hep C Ab Signal/Cutoff CBC, BMP noted Hb 10 PG Care Time/CCT Total # of Minutes Spent Total Time Spent with Patient: Total time spent is greater than 50% in coordination of care (as documented) at patient's floor/unit and/or counseling patient: Coding Level of Care Code 81134 Subseq Hosp Care Lvl 1 Diagnoses Neurogenic claudication due to lumbar spinal stenosis M48.062 Hyperlipidemia E78.2 Hyperlipidemia type: mixed hyperlipidemia HTN (hypertension) I10 Hypertension type: unspecified Dementia F03.90 Dementia behavioral disturbance: without behavioral disturbance Dementia type: unspecified type Benign essential tremor G25.0 GERD (gastroesophageal reflux disease) K21.9 Esophagitis presence: esophagitis presence not specified Type 2 diabetes mellitus E11.9 Diabetes mellitus complication status: without complication Diabetes mellitus intermediate manager insulin use: without custodial use Hypothyroid E03.9 Hypothyroidism type: acquired Alcohol use Z72.89 (1) Type 2 diabetes mellitus Diabetes mellitus complication status: without complication Diabetes mellitus custodial insulin use: without intermediate manager use Qualified Code(s): E11.9 - Type 2 diabetes mellitus without complications (2) Dementia Dementia behavioral disturbance: without behavioral disturbance Dementia type: unspecified type Qualified Code(s): F03.90 - Unspecified dementia without behavioral disturbance (3) Hyperlipidemia Hyperlipidemia type: mixed hyperlipidemia Qualified Code(s): E78.2 - Mixed hyperlipidemia (4) Hypothyroid Hypothyroidism type: acquired Qualified Code(s): E03.9 - Hypothyroidism, unspecified (5) GERD (gastroesophageal reflux disease) Esophagitis presence: esophagitis presence not specified Qualified Code(s): K21.9 - Gastro-esophageal reflux disease without esophagitis (6) HTN (hypertension) Hypertension type: unspecified Qualified Code(s): I10 - Essential (primary) hypertension
--- NOTE | 2021-08-10 12:55 | Pharmacy Report ---
Pharmacy Glycemic Short Note 2 - Date of Service August 10, 2021 - Glycemic Short BSG Results (Last 24 hours): 08/09/21 08/09/21 08/10/21 13:49 17:05 05:56 Glucose 104 H POC Glucose 176 H 193 H 08/10/21 08/10/21 08:18 12:16 Glucose POC Glucose 108 H 124 H OUTPATIENT ANTIDIABETIC REGIMEN: * Metformin 1000 mg PO BIDM * Trulicity 0.75 mg SC weekly (Saturdays) * HbA1c: 6.1% (07/26/21) ASSESSMENT: 08/10/21: * Ratna received 55 units of SQ insulin yesterday (30 units Lantus + 25 units Novolog) with decent glycemic control. BSGs: 102, 136, 176, 193 * Dexamethasone IV continued on admission - 6 mg IV daily x 3 doses * Fasting BSG of 108 mg/dL is at goal. Will continue basal insulin in the form of Lantus since patient tolerated this well yesterday. If post prandial hyperglycemia is noted, may need to replace Lantus with NPH. 08/09/21: * DF is a 66 year old female POD #0 s/p L2-3 decompression/fusion * Dexamethasone 8 mg IV x 1 given perioperatively * Dexamethasone 6 mg IV daily to be ordered ongoing postoperatively to start tomorrow * Preoperative BSG of 102 mg/dL, postoperative BSG of 176 mg/dL PLAN FOR INPATIENT GLYCEMIC CONTROL: * Hold outpatient oral diabetes medications * Basal insulin * Lantus 15 units SC this morning * Lantus 10-15 units SC tonight (15 units for BSG > 140 mg/dL) * Bolus insulin * NovoLog per scale ACHS or Q6hrs while NPO * Goal Range: Low 110 mg/dL - High 140 mg/dL * Correction Factor: 15 mg/dL/unit * Nutritional / Prandial insulin per carb ratio of 1 unit per 5 grams CHO consumed
[2021-08-10] MEDS: DONEPEZIL HCL 10 MG TAB PO SCH (21:11)
[2021-08-10] MEDS: DOCUSATE SODIUM/SENNA 50/8.6MG TAB PO SCH (21:13)
[2021-08-10] MEDS: diphenhydrAMINE Capsule 25 MG CAP PO PRN (21:13)
[2021-08-10] MEDS: INSULIN GLARGINE SOLOSTAR 100 UNITS/ML 3 ML PEN SC SCH (21:20)
[2021-08-11] MEDS: POLYETHYLENE (MIRALAX) 17 GM PACK PO SCH ×3 (00:05→12:16)
[2021-08-11] MEDS: LEVOTHYROXINE SODIUM 100 MCG TABLET PO SCH (06:12)
[2021-08-11] MEDS: oxyCODONE HCL IR 5 MG TAB (IMMEDIATE RELEASE) PO PRN (06:15)
--- NOTE | 2021-08-11 09:10 | Pharmacy Report ---
Pharmacy Glycemic Short Note 2 - Date of Service August 11, 2021 - Glycemic Short BSG Results (Last 24 hours): 08/10/21 08/10/21 08/10/21 12:16 17:20 20:55 POC Glucose 124 H 136 H 135 H 08/11/21 08:09 POC Glucose 98 OUTPATIENT ANTIDIABETIC REGIMEN: * Metformin 1000 mg PO BIDM * Trulicity 0.75 mg SC weekly (Saturdays) * HbA1c: 6.1% (07/26/21) ASSESSMENT: 08/11/21: * Ratna received 43 units of SQ insulin yesterday (25 units Lantus + 18 units Novolog) * Today is dose 2 of 3 for dexamethasone 6 mg IV * Fasting BSG at goal but trending down. Will slightly decrease Lantus. * Excellent post prandial BSG control. No changes to Novolog today. 08/10/21: * Ratna received 55 units of SQ insulin yesterday (30 units Lantus + 25 units Novolog) with decent glycemic control. BSGs: 102, 136, 176, 193 * Dexamethasone IV continued on admission - 6 mg IV daily x 3 doses * Fasting BSG of 108 mg/dL is at goal. Will continue basal insulin in the form of Lantus since patient tolerated this well yesterday. If post prandial hyperglycemia is noted, may need to replace Lantus with NPH. 08/09/21: * JOSE is a 66 year old female POD #0 s/p L2-3 decompression/fusion * Dexamethasone 8 mg IV x 1 given perioperatively * Dexamethasone 6 mg IV daily to be ordered ongoing postoperatively to start tomorrow * Preoperative BSG of 102 mg/dL, postoperative BSG of 176 mg/dL PLAN FOR INPATIENT GLYCEMIC CONTROL: * Hold outpatient oral diabetes medications * Basal insulin * Lantus 8-10 units SC BID (10 units for BSG > 120 mg/dL) * Bolus insulin * NovoLog per scale ACHS or Q6hrs while NPO * Goal Range: Low 110 mg/dL - High 140 mg/dL * Correction Factor: 15 mg/dL/unit * Nutritional / Prandial insulin per carb ratio of 1 unit per 5 grams CHO consumed
[2021-08-11] MEDS: HYDROmorphone INJ 1 MG/ML SYRINGE IV PRN (09:25)
[2021-08-11] MEDS: THIAMINE HCL 100 MG TAB PO SCH (09:33)
[2021-08-11] MEDS: INSULIN ASPART PER UNIT SC SCH ×2 (09:33→12:53)
[2021-08-11] MEDS: TOPIRAMATE 25 MG TAB PO SCH (09:33)
[2021-08-11] MEDS: DULoxetine HCL 30 MG CAP PO SCH (09:34)
[2021-08-11] MEDS: buPROPion SR 100 MG TABCR PO SCH (09:34)
[2021-08-11] MEDS: busPIRone 7.5 MG TAB PO SCH (09:34)
[2021-08-11] MEDS: FOLIC ACID 1 MG TAB PO SCH (09:34)
[2021-08-11] MEDS: INSULIN GLARGINE SOLOSTAR 100 UNITS/ML 3 ML PEN SC SCH (09:35)
[2021-08-11] MEDS: dexAMETHasone 6 MG in SYRINGE 0 ML IV SCH (09:35)
[2021-08-11] MEDS: ASPIRIN 81 MG ECTAB PO SCH (09:35)
[2021-08-11] MEDS: ATORVASTATIN 20 MG TAB PO SCH (09:35)
--- NOTE | 2021-08-11 13:42 | Hospitalist Progress Note ---
Date of Service August 11, 2021 Assessment & Plan (1) Neurogenic claudication due to lumbar spinal stenosis: Plan: POD #2 s/p L2-L3 lumbar decompression-fusion by Dr Jenkins. Patient being d/c home today by primary ortho team. 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 (2) Hyperlipidemia: Plan: Cont lipitor (3) HTN (hypertension): Plan: not on meds at home for such mild, intermittent elevations continue would simply continue to monitor as outpatient suspect pain from her surgery is responsible for lability (4) Dementia: Plan: quite young for such - related to chronic etoh use? cont thiamine 200mg BID - gave prescription for such; Rx x 30 days cont folate - Rx x 30 days cont aricept (5) Benign essential tremor: (6) GERD (gastroesophageal reflux disease): Plan: pepcid prn (7) Type 2 diabetes mellitus: Plan: glycemic control remains excellent appreciate pharmacy consult and recs/management (8) Hypothyroid: Plan: TSH 1.2 in 01/2021 cont synthroid (9) Alcohol use: Plan: supplement thiamine post-d/c x 30 days supplement folate post-d/c x 30 days thus far no signs/symptoms of etoh withdrawal again counseled her and strongly recommended no etoh while taking narcotics Plan: ok for d/c home from medical standpoint Admission and Anticipated Discharge Date Admission Date: August 09, 2021 Subjective patient anticipates being d/c home today we had a lengthy discussion today about use of narcotic pain meds & etoh use discussed risks of sedation, altered MS, etc with this combination -- she voiced understanding passing flatus is eating ambulating pain relatively controlled or at least acceptable Review of Systems Review of Systems: cv - no chest pain pulm - no dyspnea or LOUIS GI - no nausea or emesis; no abd pain Physical Exam Physical Exam: gen - NAD, awake / alert HENT - MMM neck - no JVD heart - RRR, s1 s2, no murmur lungs - CTA b/l ; improved breath sounds bases abd - soft NT ND BS+ ext - no edema, pulses 2+ b/l psych - a/o x 3 neuro - strength legs 5/5 b/l Results & Data Results & Data ([facility]) Vital Signs (Past 12 Hours) Vital Signs Temp Pulse Resp BP Pulse Ox 05/27/22 05:39 37 C 73 16 137/78 94 Laboratory Results Laboratory Results - last 24 hr 08/10/21 08/10/21 08/10/21 05:56 17:20 20:55 POC Glucose 136 H 135 H Hepatitis C Ab (EIA) NON-REACTIVE Hep C Ab Signal/Cutoff 0.00 08/11/21 08/11/21 08:09 12:17 POC Glucose 98 127 H Hepatitis C Ab (EIA) Hep C Ab Signal/Cutoff PG Care Time/CCT Total # of Minutes Spent Total Time Spent with Patient: Total time spent is greater than 50% in coordination of care (as documented) at patient's floor/unit and/or counseling patient: Coding Level of Care Code 88242 Subseq Hosp Care Lvl 2 Diagnoses Neurogenic claudication due to lumbar spinal stenosis M48.062 Hyperlipidemia E78.2 Hyperlipidemia type: mixed hyperlipidemia HTN (hypertension) I10 Hypertension type: unspecified Dementia F03.90 Dementia behavioral disturbance: without behavioral disturbance Dementia type: unspecified type Benign essential tremor G25.0 GERD (gastroesophageal reflux disease) K21.9 Esophagitis presence: esophagitis presence not specified Type 2 diabetes mellitus E11.9 Diabetes mellitus complication status: without complication 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: without alf use Hypothyroid E03.9 Hypothyroidism type: acquired Alcohol use Z72.89 (1) Type 2 diabetes mellitus Diabetes mellitus complication status: without complication 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: without alf use Qualified Code(s): E11.9 - Type 2 diabetes mellitus without complications (2) Dementia Dementia behavioral disturbance: without behavioral disturbance Dementia type: unspecified type Qualified Code(s): F03.90 - Unspecified dementia without behavioral disturbance (3) Hyperlipidemia Hyperlipidemia type: mixed hyperlipidemia Qualified Code(s): E78.2 - Mixed hyperlipidemia (4) Hypothyroid Hypothyroidism type: acquired Qualified Code(s): E03.9 - Hypothyroidism, unspecified (5) GERD (gastroesophageal reflux disease) Esophagitis presence: esophagitis presence not specified Qualified Code(s): K21.9 - Gastro-esophageal reflux disease without esophagitis (6) HTN (hypertension) Hypertension type: unspecified Qualified Code(s): I10 - Essential (primary) hypertension
--- NOTE | 2021-08-11 13:50 | Discharge Summary ---
Date of Service August 11, 2021 Admission HPI Per Admitting Provider This is a 58-year-old female presents with chronic persistent back and leg pain after failing course of nonoperative care she is here for surgical invention. Principal Diagnosis Lumbar spinal stenosis with neurogenic claudication Discharge Data Allergies Allergy/AdvReac Type Severity Reaction Status Date / Time amantadine Allergy Intermediate GI UPSET Verified 08/09/21 06:45 doxycycline Allergy Intermediate GI UPSET Verified 08/09/21 06:45 Consultations 08/09/21 11:28 Consult Hospitalist Routine Procedures Performed Operation Date: 08/09/21 07:45 Actual Procedures p L2-L3 Decompression and Fusion, Spinal Cord Monitoring(Not Applicable) - Jona Jenkins DO Ordered Studies 08/09/21 07:45 FL lumbar spine 2-3V Routine Hospital Course (1) Neurogenic claudication due to lumbar spinal stenosis: Patient underwent lumbar decompression fusion tolerated so was taken to orthopedic for postoperative. Postop day 1 she was up and ambulating. Postop 2 postop day #3 JAYLYN drain decreased probably. Pain well controlled. EXTR strength testing. Separately discharged home. Discharge orders instructions from the chart for further view. Total Time Total Time Spent Total Time Spent (In Minutes): 20 minutes Discharge Plan Discharge Items Patient Disposition: Home - Self-Care Reason For Visit: Spinal Stenosis of Lumbar Region with Radiculopath Discharge Diagnosis: Lumbar spinal stenosis with radiculopathy Activity: As commented below Non-emergency contact: Primary Care Provider Call non-emergency contact if: you have any medication questions Follow-up/Referrals: Yusef Land III, CRNP [Primary Care Provider] - Diet: Regular Addtl Attending Provider Instructions: ACTIVITY RECOMMENDATIONS: SELF CARE INSTRUCTIONS AFTER THORACIC/LUMBAR FUSIONS 1. You may walk to your tolerance. It is good exercise for your legs and back. Expect some back and intermittent leg aches and pains. 2. You may perform "counter-top" level activities (make a sandwich, elizabeth with a project, etc.). 3. No bending or lifting of more than 10 pounds or back twisting of any nature (roll like a log when turning in bed). 4. You may ride in a car for 20-30 minutes at a time. No driving until after your first visit with your doctor. 5. Frequent changes of position and restricting sitting to 30 minutes at a time will help limit the amount of back spasms and stiffness you may experience. 6. You may discontinue the use of ambulatory aids (cane, crutches, etc.) once your strength and confidence allow. 7. You may drawing checker the shower and let water strike your incision when you arrive home at least once daily. Do not take a tub bath, sit in a hot tub or go into a swimming pool until after your first recheck in the office. SPECIAL CARE INSTRUCTIONS: VERY IMPORTANT TO READ AND REVIEW A. Your surgical incision has been closed with a cosmetic suture under the skin that will dissolve in about 6 weeks. In 14 days, you can use a pair of clean scissors and cut the suture that is left outside of the skin at the ends of your incision. 1. The small skin tapes can be removed 7 days after surgery if they have not fallen off by that point. 2. You may keep the wound open to air as much as possible to promote healing after post-op day number 5 unless told otherwise by your doctor. 3. If you think the wound looks like it is becoming infected (redness or worsening drainage) and/or you are experiencing fever, chill or worsening back pain and muscle spasms, contact the office so that we may evaluate you as soon as possible. B. Complications are uncommon, but please contact us if you have any signs or symptoms of: 1. wound infection (fever higher than 102.5 degrees F, redness, separation of wound, drainage, or increasing pain from the incision) 2. blood clots in legs (pain, swelling, redness and warmth in legs) 3. urinary tract infection (fever higher than 102.5 degrees F, burning upon urination or increased frequency of urination) 4. nerve problems (inability to walk on your toes or heels, numbness, loss of bowel or bladder control) 5. any other symptoms that concern you C. Please call the office at if you have any concerns or questions about your operation or recovery. D. No smoking! Smoking drastically decreases the chance of a solid fusion. E. Do not take any anti-inflammatory medications (Indocin, Advil, Motrin, Aspirin, Naprosyn, etc.) as these may inhibit the chance of a solid fusion. Tylenol is okay to take for pain. MANAGING PAIN AFTER SPINAL SURGERY 1. Narcotic medication is intended for short-term use and will be provided for surgical pain. Surgical pain usually lasts for a period of 4-6 weeks. Narcotic medication includes Percocet, Vicodin, Darvocet, Tylenol #3 or Lortab. 2. Longer-term pain is more appropriately treated with non-narcotic medication such as Tylenol ES. 3. Muscle spasm is not appropriately treated with narcotics. Muscle relaxers such as Soma, Flexeril or Skelaxin can be used along with Tylenol ES. 4. Remember that we all live with some "aches and pains". This is not unusual or uncommon after an injury or as we get older. a. Back pain is expected and may include muscle spasms for 4 to 6 weeks after surgery. The pain should gradually improve. If the pain worsens for no apparent reason, please contact the office. b. Intermittent leg pain may also be experienced and should not be concerned about unless it worsens for no apparent reason. If so, please contact the office. 5. We will provide appropriate medication within the normal guidelines of their prescribed use. We will also be very cautious and aware of potential abuse and extended duration of patients' medication needs. a. Pain medications are for your comfort and to assist with sleep and rest so that the tissue can heal. They are not provided in order to return to normal activity and should not be used through the day. To do so or worsening pain at night can result from ongoing tissue damage and development of tolerance to the prescribed medicine. 6. Please allow 2-3 days to process refills. Prescriptions will not be mailed but must be picked up at the office. FOLLOW UP VISIT: Keep your scheduled follow-up appointment. Any questions, please call the office at . Addtl [employer] Provider Instructions: Mrs Leandra Riddle I have sent to your pharmacy for you the following - * thiamine 200mg twice daily x 30 days * folic acid 1mg daily x 30 days The thiamine in particular may help with your memory. For constipation you may need to take miralax +/- sennakot (or dulcolax) during your recovery at home. All of these products are [id number]. For severe constipation not responding to oral constipation aids consider a dulcolax suppository. Please abstain from all forms of alcohol while you are taking prescription pain killer medication as this can cause you to be sleepy/lethargic, impair your thinking, etc. Best wishes for a speedy recovery! Dr Giang Pending Studies at Discharge: No Stand-Alone Forms: [facility], Smoking Cessation Medications and DC Order Prescriptions: New tramadol 50 mg tablet 50 mg PO Q6H PRN (Reason: pain, moderate) Qty: 30 RF: 0 oxycodone 5 mg tablet 5 mg PO Q6H PRN (Reason: pain, severe) Qty: 30 RF: 0 thiamine HCl (vitamin B1) 100 mg tablet 200 mg PO BID 30 Days Qty: 120 RF: 0 folic acid 1 mg tablet 1 mg PO DAILY Qty: 30 RF: 0 Continued Trulicity 0.75 mg/0.5 mL pen injector 0.75 mg SQ SA@0800 Qty: 6 RF: 5 donepezil [Aricept] 10 mg tablet 10 mg PO HS Qty: 90 RF: 1 atorvastatin 20 mg tablet 20 mg PO QAM Qty: 90 RF: 1 duloxetine 30 mg capsule,delayed release(DR/EC) 30 mg PO QAM Qty: 90 RF: 1 metformin 1,000 mg tablet 1,000 mg PO BID Qty: 180 RF: 1 celecoxib [Celebrex] 100 mg capsule 100 mg PO BID Qty: 180 RF: 1 bupropion HCl [Wellbutrin SR] 200 mg tablet sustained-release 12 hr 200 mg PO BID Qty: 180 RF: 1 levothyroxine [Synthroid] 100 mcg tablet 100 mcg PO QAM Qty: 90 RF: 3 oxycodone-acetaminophen [Endocet] 5-325 mg tablet 1 tab PO TID PRN (Reason: pain) Qty: 90 RF: 0 topiramate 25 mg tablet 25 mg PO DAILY Qty: 90 RF: 3 (DME) Knee Scooter Misc See Rx Instructions .MEDSUPPLY Qty: 1 RF: 0 buspirone 7.5 mg tablet 7.5 mg PO BID Qty: 60 RF: 1 aspirin [Aspir-81] 81 mg tablet,delayed release (DR/EC) 81 mg PO QAM RF: 0 mirtazapine 15 mg tablet 15 mg PO HS PRN (Reason: Insomnia) RF: 0 Discharge Orders: Discharge Order (Routine); Ordered 05/27/22 Ordered By: Jona Jenkins Admission Data Admit Date/Time: 08/09/21 09:17 Attending Provider: Jona Jenkins Admit Provider: Jona Jenkins Primary Care Provider: Yusef Land III Other Providers: Clive Giang
[2021-08-11] MEDS: HYDROmorphone INJ 0.5 MG/0.5 ML SYR IV PRN (14:25)
== END 2021-08-11 15:23 | disposition home or self-care (01) | DRG 455 ==
LOC: ASU 06:23 → PACUINP 09:17 → 3N 13:32

== ENCOUNTER 2022-10-31 14:01 | Observation (INO) ==
--- NOTE | 2022-10-31 14:11 | ED Triage Note ---
Date of Service October 31, 2022 History of Present Illness This patient was briefly evaluated while in triage. An abbreviated physical exam was performed. This patient is a 67-year-old Female who presents to the ED for evaluation of "feeling off." Having foggy vision in the right eye and feels like her speech is weird. Feels like she can't get the words out of her mouth. feels like her words are slurred. Also feeling like her arms and legs feel weak and she feels like she's a puppet when she tries to move her arms. Having more trouble moving the right arm, but is weaker in the left arm. Symptoms started at 9:30 am. No previous stroke. Not on blood thinners. Physical Exam GENERAL: Non-toxic and in no acute distress. Speech was somewhat slow, pressured, and slightly slurred. HEENT: Pupils equal. No obvious scleral icterus. No facial droop noted. HEART: Regular rate and rhythm. LUNGS: Clear to auscultation. No accessory muscle use. ABDOMEN: Soft, nontender to palpation. NEURO: Alert and oriented. See general and musculoskeletal exams. MUSCULOSKELETAL: Having difficulty moving the left arm compared to the right. Left arm weakness compared to the right. Drifting of the left arm with pronator drift testing. Stroke Alert was called and Initial orders for labs and / or imaging were placed and the patient was taken directly to CT scan. Please see further documentation for the full ED course. MDM / Impression Impression Impression: Slurred speech, Expressive aphasia, Decreased sensation
[2022-10-31 14:33] LABS: Hematocrit (blood only) 41.5 % (37.0-47.0); Hemoglobin 13.4 g/dl (12.0-16.0); Mean Corpuscular Hgb Conc 32.3 g/dL (32.0-36.0); Mean Corpuscular Volume 86.8 fL (80.0-100.0); Mean Platelet Volume 10.1 fL (9.4-12.4); Platelet Count 236 K/uL (130-400); RDW Coefficient of Variation 14.6 % (11.5-14.5); RDW Standard Deviation 46.4 fL (36.4-46.3); Red Blood Count 4.78 M/uL (4.20-5.40); White Blood Count 7.45 K/ul (4.8-10.8)
--- NOTE | 2022-10-31 14:36 | CT Scan Report ---
CT head/brain wo con CLINICAL HISTORY: 67 years-old Female with Neuro deficit, acute, stroke suspected. Acute strokelike symptoms TECHNIQUE: Multiple axial CT images of the head were obtained without contrast. A dose lowering tech nique was utilized adhering to the principles of ALARA. CT DOSE: 625.80 mGy.cm COMPARISON: 05/28/2019 FINDINGS: No acute intracranial hemorrhage, midline shift, intracranial mass, hydrocephalus, territorial ischem ia or abnormal extra-axial collection. Involutional changes with chronic microvascular ischemic disea se. The calvarium is intact. Prior bilateral lens repair. The paranasal sinuses, mastoid air cells, and m iddle ear cavities are clear. IMPRESSION: No acute intracranial abnormality. ACT 112: Negative or not required by law. The above report was generated using voice recognition software. It may contain grammatical, syntax o r spelling errors. Electronically signed by: Galindo Gifford M.D. 10/31/2022 2:34 PM
[2022-10-31 14:44] LABS: iSTAT Creatinine 0.9 mg/dl (0.6-1.3); iSTAT Hemoglobin 14.6 g/dl (12.0-16.0); iSTAT Ionized Calcium 1.26 mmol/l (1.12-1.32); iSTAT Potassium 4.4 mmol/L (3.3-5.0)
--- NOTE | 2022-10-31 14:44 | Emergency Department Note ---
ED Provider Note History of Present Illness Chief Complaint: Stroke/CVA Symptoms Stated Complaint: DIZZY, SLURRED SPEECH, OFF BALANCE, VISION PROBLEM Time Seen by Provider: 10/31/22 14:09 Source: patient and family () Patient is a 67-year-old female complaint of not feeling herself. Patient states that acutely at 9:30 AM she developed dizziness feeling off balance as well as blurred vision of the right eye decreased sensation to the right side of her body slurred speech and expressive aphasia. Patient was awake prior to this and acutely noticed the change. Symptoms started approximately 5 hours prior to arrival. Patient has not had any prior TIAs or CVAs. Patient does not have any history of irregular heart rhythms. Home Medications Medication Instructions Recorded Confirmed Type semaglutide 2 mg/dose (8 mg/3 mL) 2 mg (0.75 mL) subcut WK 30 days 01/15/22 04/10/22 Rx subcutaneous pen injector (Ozempic) #22.5 mL lansoprazole 30 mg capsule,delayed 30 mg PO DAILY #90 caps 02/02/22 04/10/22 Rx release metformin 1,000 mg tablet 1,000 mg PO BID #180 tabs 03/26/22 04/10/22 Rx ciprofloxacin HCl 500 mg tablet 500 mg PO Q12H 7 days #14 tabs 04/10/22 04/10/22 Rx bupropion HCl 150 mg tablet,12 hr 150 mg PO BID #180 ea 05/25/22 Rx sustained-release celecoxib 100 mg capsule (Celebrex) 100 mg PO BID #180 caps 05/25/22 Rx donepezil 10 mg tablet (Aricept) 10 mg PO HS #90 tabs 05/25/22 Rx levothyroxine 100 mcg tablet 100 mcg PO QAM #90 tabs 06/29/22 Rx (Synthroid) atorvastatin 20 mg tablet 20 mg PO QAM #90 tabs 08/28/22 Rx doxepin 10 mg capsule 10 mg PO PM insomnia #30 caps 10/29/22 Rx Allergies Allergy/AdvReac Type Severity Reaction Status Date / Time amantadine Allergy Intermediate GI UPSET Verified 04/10/22 11:44 doxycycline Allergy Intermediate GI UPSET Verified 04/10/22 11:44 Past Med/Surg History Medical History Abdominal muscle defects AIVR (accelerated idioventricular rhythm) Benign essential tremor Cervical lymphadenopathy Chest pressure Concussion 2017 Dementia Depression hx DVT prophylaxis Fatigue Foot fracture, right GERD (gastroesophageal reflux disease) controlled, stable per pt Hyperlipidemia Hypothyroid Left foot drop Lumbar spinal stenosis Opiate dependence Other intervertebral disc degeneration, lumbar region Palpitations Paroxysmal atrial tachycardia Retinal tear of left eye with repair TIA (transient ischemic attack) >5 yrs, unsure when had, was found on CT scan per pt, pt can't recall details Transaminitis Type 2 diabetes mellitus NIDDM Surgical History H/O cataract extraction bilateral H/O resection of small bowel for SBO History of back surgery History of section x2 History of colonoscopy Status post left partial knee replacement Status post right partial knee replacement [place] teeth extracted Family History Mother Coronary heart disease stents Mood disorder Father , age 49 of brain cancer Brain cancer Brother Throat cancer S/p nephrectomy for RCC Brother Myocardial infarction Denies family history of Ovarian cancer Prostate cancer Colorectal cancer Social History Smoking Status: Unknown if ever smoked Tobacco Type: Cigarettes Age Started Using Tobacco: 39; Age Quit Using Tobacco: 53; packs per day: 0.5; Cigarettes Per Day: 10; Second Hand Exposure: No; Do You Dip or Chew Tobacco: No; Hx Alcohol Use: No Hx Substance Use: No Preferred Language: Yi Communication Ability: Effective Visual Impairment: No Limitations Hearing Ability: Normal Manager Cardiovascular Required: No Beliefs That Will Affect Care: None marital status: Current Living Situation: Spouse current occupational status: retired 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 Feels Safe at Home: Yes Childhood Exposure to Second-Hand Smoke: No Diet: regular Diet Comment: regular caffeine: Yes during the past year weight has: remained stable Dental Care, Regularly: Yes Physical Activity Frequency: 3-4 Times per Week Seatbelt Use: always Sunscreen Use: Yes Assistive Devices: Glasses Physical Exam Vital Signs Vital Signs - 24 hr 10/31/22 14:11 10/31/22 14:26 10/31/22 14:31 Temperature 37.0 C Temperature Source Temporal Artery Scan Pulse Rate 80 76 Pulse Rate from SpO2 Sensor Respiratory Rate 18 Respiratory Depth Normal Blood Pressure 106/65 Blood Pressure Mean 78 Pulse Oximetry 99 96 Oxygen Delivery Method Room Air Room Air Sepsis Recent Fever Within 48 Hours No Sepsis New/Unexplained Change in Mental Status No Sepsis Action Taken by Nursing No Action Required 10/31/22 14:24 10/31/22 14:30 10/31/22 15:14 Temperature Temperature Source Pulse Rate 77 75 75 Pulse Rate from SpO2 Sensor 79 Respiratory Rate 18 20 20 Respiratory Depth Blood Pressure Blood Pressure Mean Pulse Oximetry 97 Oxygen Delivery Method Sepsis Recent Fever Within 48 Hours Sepsis New/Unexplained Change in Mental Status Sepsis Action Taken by Nursing 10/31/22 15:15 10/31/22 15:15 10/31/22 15:20 Temperature Temperature Source Pulse Rate 84 69 Pulse Rate from SpO2 Sensor 73 68 Respiratory Rate 21 17 Respiratory Depth Blood Pressure 140/103 H Blood Pressure Mean 115 Pulse Oximetry 93 99 Oxygen Delivery Method Sepsis Recent Fever Within 48 Hours Sepsis New/Unexplained Change in Mental Status Sepsis Action Taken by Nursing 10/31/22 15:20 10/31/22 15:25 10/31/22 15:25 Temperature Temperature Source Pulse Rate 84 Pulse Rate from SpO2 Sensor 73 Respiratory Rate 20 Respiratory Depth Blood Pressure 140/87 131/83 Blood Pressure Mean 104 99 Pulse Oximetry 97 Oxygen Delivery Method Sepsis Recent Fever Within 48 Hours Sepsis New/Unexplained Change in Mental Status Sepsis Action Taken by Nursing 10/31/22 15:30 10/31/22 15:30 10/31/22 16:00 Temperature Temperature Source Pulse Rate 74 67 Pulse Rate from SpO2 Sensor 71 Respiratory Rate 23 13 Respiratory Depth Blood Pressure 130/82 Blood Pressure Mean 98 Pulse Oximetry 98 Oxygen Delivery Method Sepsis Recent Fever Within 48 Hours Sepsis New/Unexplained Change in Mental Status Sepsis Action Taken by Nursing GENERAL: moderate distress EYE EXAM: Normal conjunctiva. PERRL, EOM's grossly intact w/o pain. OROPHARYNX: Moist mucus membranes. Grossly normal dentition. NECK: Supple, LUNGS: Clear to auscultation. Normal chest wall mechanics. HEART: NSR, ABDOMEN: Abdomen soft, non-tender, normo-active bowel sounds, no masses, no rebound or guarding BACK: No CVA TTP. SKIN: No rashes and no bruising. UPPER EXTREMITIES: Upper extremities are grossly normal LOWER EXTREMITIES: Grossly normal, no edema. NEURO EXAM: A&O x3, blurred vision right eye, slurred speech, expressive aphasia present, no facial droop present, patient has decreased sensation to the right side of face right arm right leg, no drift present no muscle strength deficit. Patient does feel like it takes more effort to get right arm and right leg up off the stretcher.. Course Administered Medications Discontinued Medications Ioversol (Ioversol 350 Mg 125ml Prefilled Syringe) 115 ml IV ONCE ONE Stop: 10/31/22 15:15 Last Admin: 10/31/22 15:15 Dose: 115 ml Documented By: LYNDSEY Medical Decision Making Medical Records Attestation: I reviewed the patient's medical records. Home Medications was personally reviewed by me Laboratory Data Attestation: I reviewed the patient's lab results. 10/31/22 14:24 10/31/22 14:24 Lab Results 10/31/22 10/31/22 10/31/22 Range/Units 14:24 14:24 14:24 WBC 7.45 (4.8-10.8) K/ul RBC 4.78 (4.20-5.40) M/uL Hgb 13.4 (12.0-16.0) g/dl POC Hgb (12.0-16.0) g/dl Hct 41.5 (37.0-47.0) % POC Hct (37-47) % MCV 86.8 (80.0-100.0) fL MCH 28.0 (25.0-34.0) pg MCHC 32.3 (32.0-36.0) g/dL RDW Std Deviation 46.4 H (36.4-46.3) fL RDW Coeff of Mick 14.6 H (11.5-14.5) % Plt Count 236 (130-400) K/uL MPV 10.1 (9.4-12.4) fL PT 10.9 (9.0-12.0) Seconds INR 1.0 (0.9-1.1) APTT 25.2 (21.0-31.0) Seconds PTT Ratio 0.9 POC Sodium (135-144) mmol/L Sodium 138 (136-145) mmol/L POC Potassium (3.3-5.0) mmol/L Potassium 4.3 (3.5-5.1) mmol/L POC Chloride (101-112) mmol/L Chloride 103 (98-107) mmol/L Carbon Dioxide 30 (21-32) mmol/L POC Total CO2 (24-31) mmol/L Anion Gap 5 (3-11) POC Anion Gap (16-25) mmol/L POC BUN (7-18) mg/dl BUN 13 (6-23) mg/dl Creatinine 0.92 (0.6-1.2) mg/dl POC Creatinine (0.6-1.3) mg/dl Est Cr Clr Drug Dosing 63.3 ml/min Est GFR ( Amer) 73.6 ml/min Est GFR (Non-Af Amer) 63.5 ml/min BUN/Creatinine Ratio 14.1 (10-20) Glucose 105 H (70-99(Fasting)) mg/dl POC Glucose (other) (70-99) mg/dl Calcium 9.4 (8.6-10.3) mg/dl POC Ioniz Calcium Los (1.12-1.32) mmol/l Magnesium 1.8 (1.7-2.4) mg/dl Total Bilirubin 0.9 (0.2-1.0) mg/dl AST 18 (13-39) U/L ALT 15 (7-52) U/L Alkaline Phosphatase 67 (34-104) U/L Total Protein 7.3 (6.0-8.3) gm/dl Albumin 4.6 (3.4-5.0) gm/dl Globulin 2.7 (2.5-4.0) gm/dl Albumin/Globulin Ratio 1.7 (0.9-2) 10/31/22 Range/Units 14:31 WBC (4.8-10.8) K/ul RBC (4.20-5.40) M/uL Hgb (12.0-16.0) g/dl POC Hgb 14.6 (12.0-16.0) g/dl Hct (37.0-47.0) % POC Hct 43 (37-47) % MCV (80.0-100.0) fL MCH (25.0-34.0) pg MCHC (32.0-36.0) g/dL RDW Std Deviation (36.4-46.3) fL RDW Coeff of Mick (11.5-14.5) % Plt Count (130-400) K/uL MPV (9.4-12.4) fL PT (9.0-12.0) Seconds INR (0.9-1.1) APTT (21.0-31.0) Seconds PTT Ratio POC Sodium 140 (135-144) mmol/L Sodium (136-145) mmol/L POC Potassium 4.4 (3.3-5.0) mmol/L Potassium (3.5-5.1) mmol/L POC Chloride 100 L (101-112) mmol/L Chloride (98-107) mmol/L Carbon Dioxide (21-32) mmol/L POC Total CO2 26 (24-31) mmol/L Anion Gap (3-11) POC Anion Gap 20.0 (16-25) mmol/L POC BUN 12 (7-18) mg/dl BUN (6-23) mg/dl Creatinine (0.6-1.2) mg/dl POC Creatinine 0.9 (0.6-1.3) mg/dl Est Cr Clr Drug Dosing ml/min Est GFR ( Amer) ml/min Est GFR (Non-Af Amer) ml/min BUN/Creatinine Ratio (10-20) Glucose (70-99(Fasting)) mg/dl POC Glucose (other) 108 H (70-99) mg/dl Calcium (8.6-10.3) mg/dl POC Ioniz Calcium Los 1.26 (1.12-1.32) mmol/l Magnesium (1.7-2.4) mg/dl Total Bilirubin (0.2-1.0) mg/dl AST (13-39) U/L ALT (7-52) U/L Alkaline Phosphatase (34-104) U/L Total Protein (6.0-8.3) gm/dl Albumin (3.4-5.0) gm/dl Globulin (2.5-4.0) gm/dl Albumin/Globulin Ratio (0.9-2) Imaging Data Radiologist's Impression: Chest X-Ray 10/31/22 14:10 XR chest 1V portable HISTORY: 67 years-old Female stroke alert acute strokelike symptoms COMPARISON: 03/08/2022 TECHNIQUE: AP view of the chest FINDINGS: Cardiomediastinal and hilar silhouettes are within normal limits. No pneumothorax, pleural effusion, airspace consolidation or pulmonary edema. Mild right hemidiaphragmatic elevation. Partially imaged lumbar spinal fusion hardware. Bones appear grossly intact. IMPRESSION: No acute process. ACT 112: Negative or not required by law. The above report was generated using voice recognition software. It may contain grammatical, syntax or spelling errors. Electronically signed by: Galindo Gifford M.D. 10/31/2022 2:[address] 10/31/22 14:10 CT head/brain wo con CLINICAL HISTORY: 67 years-old Female with Neuro deficit, acute, stroke suspected. Acute strokelike symptoms TECHNIQUE: Multiple axial CT images of the head were obtained without contrast. A dose lowering technique was utilized adhering to the principles of ALARA. CT DOSE: 625.80 mGy.cm COMPARISON: 05/28/2019 FINDINGS: No acute intracranial hemorrhage, midline shift, intracranial mass, hydrocephalus, territorial ischemia or abnormal extra-axial collection. Involutional changes with chronic microvascular ischemic disease. The calvarium is intact. Prior bilateral lens repair. The paranasal sinuses, mastoid air cells, and middle ear cavities are clear. IMPRESSION: No acute intracranial abnormality. ACT 112: Negative or not required by law. The above report was generated using voice recognition software. It may contain grammatical, syntax or spelling errors. Electronically signed by: Galindo Gifford M.D. 10/31/2022 2:34 PM Head CTA 10/31/22 14:34 CT angio head w con CLINICAL HISTORY: 67 years-old Female with CVA-eval, rt sided numbness, slurred speech,. Acute stroke like symptoms COMPARISON STUDY: Head CT of same day TECHNIQUE: Following the IV administration of 115 cc of Optiray, CT angiogram of the brain was performed from the skull base to the vertex. Images are reviewed in the axial, sagittal, and coronal planes. 3-D MIPS images are created and assessed. IV contrast was administered without complication. All measurements were obtained according to NASCET criteria. A dose lowering technique was utilized adhering to the principles of ALARA. CT DOSE: 526.61 mGy.cm FINDINGS: CT ANGIOGRAM OF THE BRAIN: Motion degraded exam. Atherosclerosis. The imaged bilateral internal carotid arteries are patent. The bilateral anterior and middle cerebral arteries are also patent. The vertebrobasilar system and posterior cerebral arteries are widely patent. There is no aneurysm, high-grade stenosis, or proximal branch occlusion identified. Dural sinuses appear patent. IMPRESSION: Motion degraded exam. No aneurysm, dissection, high-grade stenosis or arterial occlusion identified. ACT 112: Negative or not required by law. The above report was generated using voice recognition software. It may contain grammatical, syntax or spelling errors. Electronically signed by: Galindo Gifford M.D. 10/31/2022 3:26 PM Neck CTA 10/31/22 14:34 CT angio neck with con CLINICAL HISTORY: CVA-eval, right sided numbness, slurred speech TECHNIQUE: CT angiography of the neck was performed following intravenous administration of iodinated contrast. Coronal and sagittal MIPS were obtained from the axial data set and were submitted for review. Automated dose lowering techniques and/or adjustment according to patient size were utilized for this examination. All measurements were calculated based on NASCET criteria. Comparison: Comparison is made to CT cervical spine 08/27/2015 FINDINGS: Lungs and soft tissues are unremarkable. CTA Neck: A 3 vessel aortic arch is shown. There is no significant atherosclerotic plaque in the aortic arch or the origins of the innominate, left common carotid, and left subclavian arteries. The common carotid, external carotid, cervical segments of the internal carotid arteries, and the cervical segments of the vertebral arteries are patent without hemodynamically significant stenosis. The vertebral arteries are codominant. IMPRESSION: No occlusion, hemodynamically significant stenosis, or dissection in the major cervical arteries. Assessment of stenosis of the internal carotid arteries is based on NASCET criteria. ACT 112: Negative or not required by law. Electronically signed by: Jose Irwin M.D. 10/31/2022 3:41 PM ECG Data Attestation: I personally reviewed and interpreted this ECG as follows: Rhythm: + normal sinus ECG [place]: + Normal ECG ST segments: + Normal ST segments MDM Narrative History of present illness; patient, ER course: Patient presenting 5 hours from onset of symptoms which was 9:30 AM with right-s ided numbness slurred speech and expressive aphasia and right blurred vision. Patient activated as a stroke alert upon arrival in the emergency room. Patient's CT of the head no intracranial hemorrhage present. Patient outside window for TNK due to being greater than 4-1/2 hours from time of onset of symptoms. Patient CT scan angio of head and neck did not show any large vessel occlusions. Patient given full dose aspirin. On reevaluation the patient admits to taking 2 THC gummy bears this morning at approximately 9 AM. Patient states she has having a intermittent tremor throughout her body which is new from her which started today. We will try 0.5 milligram of Ativan. Consult; hospitalist service accepts patient for further treatment and evaluation Labs (independently interpreted) are significant; no leukocytosis, no electrolyte abnormalities EKG interpretation (independently interpreted): Normal sinus rhythm no ST segment elevation or depressions, normal intervals This note was dictated using [employer], which is a voice operative dictation device. Any typographical errors are not intentional. Impression Slurred speech, Expressive aphasia, Decreased sensation Discharge Plan Visit Data Chief Complaint: Stroke/CVA Symptoms Stated Complaint: DIZZY, SLURRED SPEECH, OFF BALANCE, VISION PROBLEM ED Provider: Vipul Rodriguez Discharge Problem: Slurred speech, Expressive aphasia, Decreased sensation Patient Disposition: Admitted As Inpatient Forms Stand Alone Forms: My [facility] [employer] Prescriptions Prescriptions: No Action metformin 1,000 mg tablet 1,000 mg PO BID Qty: 180 1RF bupropion HCl 150 mg tablet sustained-release 12 hr 150 mg PO BID Qty: 180 3RF celecoxib [Celebrex] 100 mg capsule 100 mg PO BID Qty: 180 1RF donepezil [Aricept] 10 mg tablet 10 mg PO HS Qty: 90 1RF levothyroxine [Synthroid] 100 mcg tablet 100 mcg PO QAM Qty: 90 3RF atorvastatin 20 mg tablet 20 mg PO QAM Qty: 90 1RF doxepin 10 mg capsule 10 mg PO PM Qty: 30 5RF Ozempic 2 mg/dose (8 mg/3 mL) pen injector 2 mg subcut WK 30 Days Qty: 22.5 3RF ciprofloxacin HCl 500 mg tablet 500 mg PO Q12H 7 Days Qty: 14 0RF lansoprazole 30 mg capsule,delayed release(DR/EC) 30 mg PO DAILY Qty: 90 3RF Referrals Referrals: Mackenzie Reich PA-C [Primary Care Provider] -
[2022-10-31 14:47] LABS: Partial Thromboplastin Ratio 0.9; Partial Thromboplastin Time 25.2 Seconds (21.0-31.0); Prothrombin Time 10.9 Seconds (9.0-12.0)
[2022-10-31 14:53] LABS: Albumin Globulin Ratio 1.7 (0.9-2); Albumin Level 4.6 gm/dl (3.4-5.0); BUN Creatinine Ratio 14.1 (10-20); Bilirubin,Total 0.9 mg/dl (0.2-1.0); Calcium 9.4 mg/dl (8.6-10.3); Creatinine Clr Calc Pharmacy 63.3 ml/min; Est GFR (African American) 73.6 ml/min; Est GFR (Non-African American) 63.5 ml/min; Globulin 2.7 gm/dl (2.5-4.0); Magnesium 1.8 mg/dl (1.7-2.4); Potassium 4.3 mmol/L (3.5-5.1); Total Protein 7.3 gm/dl (6.0-8.3)
--- NOTE | 2022-10-31 14:56 | XRay Report ---
XR chest 1V portable HISTORY: 67 years-old Female stroke alert acute strokelike symptoms COMPARISON: 03/08/2022 TECHNIQUE: AP view of the chest FINDINGS: Cardiomediastinal and hilar silhouettes are within normal limits. No pneumothorax, pleural effusion, airspace consolidation or pulmonary edema. Mild right hemidiaphragmatic elevation. Partially imaged l umbar spinal fusion hardware. Bones appear grossly intact. IMPRESSION: No acute process. ACT 112: Negative or not required by law. The above report was generated using voice recognition software. It may contain grammatical, syntax o r spelling errors. Electronically signed by: Galindo Gifford M.D. 10/31/2022 2:55 PM
[2022-10-31] MEDS ORDERED: IOVERSOL 350 MG 125mL Prefilled Syringe IV ONE (15:14)
--- NOTE | 2022-10-31 15:28 | CT Scan Report ---
CT angio head w con CLINICAL HISTORY: 67 years-old Female with CVA-eval, rt sided numbness, slurred speech,. Acute str yessy like symptoms COMPARISON STUDY: Head CT of same day TECHNIQUE: Following the IV administration of 115 cc of Optiray, CT angiogram of the brain was perfor med from the skull base to the vertex. Images are reviewed in the axial, sagittal, and coronal planes . 3-D MIPS images are created and assessed. IV contrast was administered without complication. All me asurements were obtained according to NASCET criteria. A dose lowering technique was utilized adherin g to the principles of ALARA. CT DOSE: 526.61 mGy.cm FINDINGS: CT ANGIOGRAM OF THE BRAIN: Motion degraded exam. Atherosclerosis. The imaged bilateral internal carotid arteries are patent. The bilateral anterior and middle cerebral arteries are also patent. The vertebrobasilar system and post erior cerebral arteries are widely patent. There is no aneurysm, high-grade stenosis, or proximal bra nch occlusion identified. Dural sinuses appear patent. IMPRESSION: Motion degraded exam. No aneurysm, dissection, high-grade stenosis or arterial occlusion identified. ACT 112: Negative or not required by law. The above report was generated using voice recognition software. It may contain grammatical, syntax o r spelling errors. Electronically signed by: Galindo Gifford M.D. 10/31/2022 3:26 PM
--- NOTE | 2022-10-31 15:43 | CT Scan Report ---
CT angio neck with con CLINICAL HISTORY: CVA-eval, right sided numbness, slurred speech TECHNIQUE: CT angiography of the neck was performed following intravenous administration of iodinated contrast. Coronal and sagittal MIPS were obtained from the axial data set and were submitted for rev iew. Automated dose lowering techniques and/or adjustment according to patient size were utilized fo r this examination. All measurements were calculated based on NASCET criteria. Comparison: Comparison is made to CT cervical spine 08/27/2015 FINDINGS: Lungs and soft tissues are unremarkable. CTA Neck: A 3 vessel aortic arch is shown. There is no significant atherosclerotic plaque in the aor tic arch or the origins of the innominate, left common carotid, and left subclavian arteries. The co mmon carotid, external carotid, cervical segments of the internal carotid arteries, and the cervical segments of the vertebral arteries are patent without hemodynamically significant stenosis. The verte bral arteries are codominant. IMPRESSION: No occlusion, hemodynamically significant stenosis, or dissection in the major cervical arteries. Assessment of stenosis of the internal carotid arteries is based on NASCET criteria. ACT 112: Negative or not required by law. Electronically signed by: Jose Irwin M.D. 10/31/2022 3:41 PM
--- NOTE | 2022-10-31 15:59 | Electrocardiogram Report ---
Test Reason : Blood Pressure : / mmHG Vent. Rate : 072 BPM Atrial Rate : 072 BPM P-R Int : 146 ms QRS Dur : 078 ms QT Int : 386 ms P-R-T Axes : 038 -02 019 degrees QTc Int : 422 ms Normal sinus rhythm Low voltage QRS Borderline ECG When compared with ECG of 08-MAR-2022 13:30, No significant change was found Confirmed by Jeremy Wooten ([id number]) on 10/31/2022 3:59:04 PM Referred By: REFERRED SELF Confirmed By:Jeremy Wooten
[2022-10-31] MEDS ORDERED: LORazepam 2 MG/1 ML VIAL IV STA (16:24)
--- NOTE | 2022-10-31 16:54 | History & Physical Report ---
Date of Service October 31, 2022 Assessment & Plan (1) Stroke-like symptoms: Plan: Acute stroke symptoms including expressive aphasia, tingling in both hands and feet, memory loss, difficulty ambulating, and whole body twitching, improved with Ativan. Presented outside of window of time for thrombolytic medication. No evidence of toxicity. She is now mentating clearly and speech is intact. She has an ongoing issue with her left eye with ptosis and she reports some fogginess in her visual field for weeks. She was able to ambulate to the bathroom with minimal assistance and reports no issues with swallowing. CT head and CTA head and neck are unremarkable. Cont workup with brain MRI, echo, and telemetry monitoring overnight. She received ASA 324mg by mouth today, cont 81mg daily. Added plavix for DAPT. Atorvastatin intensified to 40mg. For her myoclonic twitching, the cause is unclear but appears related. MRI pending and gave two grams magnesium intravenously. Neurology was consulted. (2) Hypothyroid: Plan: chronic, stable. Cont Synthroid per home dose. (3) Anxiety: Plan: chronic, stable. Cont home doxepin and bupropion (4) Type 2 diabetes mellitus: Plan: chronic, off metformin since one month ago. Just took her Ozempic dose yeste rday. Euglycemic. Cont insulin with correction factor only at this time. Most recent outpatient A1C was <6. (5) Hypertriglyceridemia: Plan: chronic, stable. Recheck lipid panel in am. Cont Lipitor at higher dose per plan above. (6) Dementia: Plan: chronic, mentating clearly and she is oriented. Cont donepezil per home regimen. SCDs Full code Dispo-to home if she is clinically improved, pending PT/OT and neuro recommendations. I spent a total [id number] coordinating, documenting, and providing care for this patient excluding time spent in the performance of separately billed services Marion James DO [facility] Hospitalist History of Present Illness Chief Complaint: stroke symptoms Primary Care Provider: Mackenzie Reich PA-C 67 yo diabetic female presents with dizziness, slurred speech, blurred vision in the right eye, and decreased sensation on the right that began around 0930. She presents to the ER approximately 5 hours after symptoms began so thrombolytic was not considered. No history of atrial fibrillation per medical record review. felt like "when you stand up too fast and it wouldn't go away" laid down for 2 hours, then got up again and it got really bad-felt much worse twitching started in her fingers and travelled up and into her shoulders, then legs were affected with twitching. (she is still intermittently twitching but this is improved after Ativan in the ER) developed expressive aphasia around 1100. Now speech improved. Head "feels like having a bunch of marbles in a washing machine", and that is starting to clear up twitching is "exhausting " chronic right eye "fogginess with sliders" but no acute changes, there is left upper eyelid ptosis and she says this has been ongoing and was scheduled to see her eye doctor. Both sides, fingertips and feet are tingling which is new, denies "numbness" [place] well yesterday No changes in medicines. Nonsmoker, quit 2008 Two beers last night, but not heavy drinker per her report. 1 cup coffee daily no changes in medications, except stopping metformin 1 month ago for low A1C Allergies Allergy/AdvReac Type Severity Reaction Status Date / Time amantadine Allergy Intermediate GI UPSET Verified 10/31/22 17:12 doxycycline Allergy Intermediate GI UPSET Verified 10/31/22 17:12 Home Medications Medication Instructions Recorded Confirmed Type semaglutide 2 mg/dose (8 mg/3 mL) 2 mg (0.75 mL) subcut WK 30 days 01/15/22 10/31/22 Rx subcutaneous pen injector (Ozempic) #22.5 mL lansoprazole 30 mg capsule,delayed 30 mg PO DAILY #90 caps 02/02/22 10/31/22 Rx release bupropion HCl 150 mg tablet,12 hr 150 mg PO BID #180 ea 05/25/22 10/31/22 Rx sustained-release celecoxib 100 mg capsule (Celebrex) 100 mg PO BID #180 caps 05/25/22 10/31/22 Rx donepezil 10 mg tablet (Aricept) 10 mg PO HS #90 tabs 05/25/22 10/31/22 Rx levothyroxine 100 mcg tablet 100 mcg PO QAM #90 tabs 06/29/22 10/31/22 Rx (Synthroid) atorvastatin 20 mg tablet 20 mg PO QAM #90 tabs 08/28/22 10/31/22 Rx doxepin 10 mg capsule 10 mg PO PM insomnia #30 caps 10/29/22 10/31/22 Rx ferrous sulfate 325 mg (65 mg 325 mg PO DAILY 10/31/22 10/31/22 History iron) tablet (iron) gabapentin 300 mg capsule 300 mg PO BID 10/31/22 10/31/22 History Past Med/Surg History Medical History Abdominal muscle defects AIVR (accelerated idioventricular rhythm) Benign essential tremor Cervical lymphadenopathy Chest pressure Concussion 2017 Dementia Depression hx DVT prophylaxis Fatigue Foot fracture, right GERD (gastroesophageal reflux disease) controlled, stable per pt Hyperlipidemia Hypothyroid Left foot drop Lumbar spinal stenosis Opiate dependence Other intervertebral disc degeneration, lumbar region Palpitations Paroxysmal atrial tachycardia Retinal tear of left eye with repair TIA (transient ischemic attack) >5 yrs, unsure when had, was found on CT scan per pt, pt can't recall details Transaminitis Type 2 diabetes mellitus NIDDM Surgical History H/O cataract extraction bilateral H/O resection of small bowel for SBO History of back surgery History of section x2 History of colonoscopy Status post left partial knee replacement Status post right partial knee replacement [place] teeth extracted Family History Mother Coronary heart disease stents Mood disorder Father , age 49 of brain cancer Brain cancer Brother Throat cancer S/p nephrectomy for RCC Brother Myocardial infarction Denies family history of Ovarian cancer Prostate cancer Colorectal cancer Social History (Updated 10/31/22 @ 19:34 by Marion James DO) Smoking Status: Former smoker Tobacco Type: Cigarettes Age Started Using Tobacco: 39; Age Quit Using Tobacco: 53; packs per day: 0.5; Cigarettes Per Day: 10; Second Hand Exposure: No; Do You Dip or Chew Tobacco: No; Hx Alcohol Use: No Hx Substance Use: No Preferred Language: Austrian Communication Ability: Effective Visual Impairment: No Limitations Hearing Ability: Normal Reproductive Surgeon Required: No Beliefs That Will Affect Care: None marital status: Current Living Situation: Spouse current occupational status: retired 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 Feels Safe at Home: Yes Childhood Exposure to Second-Hand Smoke: No Diet: regular Diet Comment: regular caffeine: Yes during the past year weight has: remained stable Dental Care, Regularly: Yes Physical Activity Frequency: 3-4 Times per Week Seatbelt Use: always Sunscreen Use: Yes Assistive Devices: Glasses Review of Systems Review of Systems: All systems were reviewed and negative except as indicated on HPI above. Physical Exam Physical Exam: CONSTITUTIONAL: WNWD, vitals as above, generally well-appearing, NAD EYES: EOMI bilaterally, PERRL, left upper eyelid ptosis present compared with right, normal conjunctivae, no scleral icterus ENT: external ear and nose normal, oropharynx clear NECK: trachea midline RESPIRATORY: clear to auscultation bilaterally, no crackles, rales or wheezes, normal respiratory effort CARDIOVASCULAR: regular rate and rhythm, S1 and 2 heard without murmurs, gallops or rubs, no JVD, no peripheral edema CHEST: inspection of chest was normal GASTROINTESTINAL: soft, nontender, ND, no guarding MUSCULOSKELETAL: strength 5/5 throughout, head is normocephalic and atraumatic, ambulating independently with caution (holding onto wall) SKIN: warm and dry NEUROLOGIC: left eye ptosis, otherwise CN 2-12 grossly intact throughout, no sensory deficit, normal cognition, normal speech, no tremor, couldn't elicit DTR in patella bilaterally, also knee scars are present from prior surgery both knees. Brachioradialis DTR 2/4 bilaterally PSYCHIATRIC: alert cooperative and oriented to person, place and time. Euthymic mood, makes good eye contact, language grossly intact, recent and remote memory grossly intact. Results & Data Results & Data Vital Signs (Past 12 Hours) Vital Signs Temp Pulse Resp BP Pulse Ox O2 Del Method 10/31/22 16:00 67 13 10/31/22 15:30 74 23 98 10/31/22 15:30 130/82 10/31/22 15:25 131/83 10/31/22 15:25 84 20 97 10/31/22 15:20 140/87 10/31/22 15:20 69 17 99 10/31/22 15:15 84 21 93 10/31/22 15:15 140/103 H 10/31/22 15:14 75 20 10/31/22 14:30 75 20 10/31/22 14:24 77 18 97 10/31/22 14:31 76 10/31/22 14:26 96 Room Air 10/31/22 14:11 37.0 C 80 18 106/65 99 Room Air Laboratory Results Short CBC 10/31/22 Range/Units 14:24 WBC 7.45 (4.8-10.8) K/ul Hgb 13.4 (12.0-16.0) g/dl Hct 41.5 (37.0-47.0) % Plt Count 236 (130-400) K/uL BMP 10/31/22 14:24 Sodium 138 Potassium 4.3 Chloride 103 Carbon Dioxide 30 BUN 13 Creatinine 0.92 Glucose 105 H Calcium 9.4 Liver Function 10/31/22 Range/Units 14:24 Total Bilirubin 0.9 (0.2-1.0) mg/dl AST 18 (13-39) U/L ALT 15 (7-52) U/L Alkaline Phosphatase 67 (34-104) U/L Albumin 4.6 (3.4-5.0) gm/dl Diagnostic Findings Chest X-Ray 10/31/22 14:10 XR chest 1V portable HISTORY: 67 years-old Female stroke alert acute strokelike symptoms COMPARISON: 03/08/2022 TECHNIQUE: AP view of the chest FINDINGS: Cardiomediastinal and hilar silhouettes are within normal limits. No pneumothorax, pleural effusion, airspace consolidation or pulmonary edema. Mild right hemidiaphragmatic elevation. Partially imaged lumbar spinal fusion hardware. Bones appear grossly intact. IMPRESSION: No acute process. ACT 112: Negative or not required by law. The above report was generated using voice recognition software. It may contain grammatical, syntax or spelling errors. Electronically signed by: Galindo Gifford M.D. 10/31/2022 2:[address] 10/31/22 14:10 CT head/brain wo con CLINICAL HISTORY: 67 years-old Female with Neuro deficit, acute, stroke suspe cted. Acute strokelike symptoms TECHNIQUE: Multiple axial CT images of the head were obtained without contrast. A dose lowering technique was utilized adhering to the principles of ALARA. CT DOSE: 625.80 mGy.cm COMPARISON: 05/28/2019 FINDINGS: No acute intracranial hemorrhage, midline shift, intracranial mass, hydrocephalus, territorial ischemia or abnormal extra-axial collection. I nvolutional changes with chronic microvascular ischemic disease. The calvarium is intact. Prior bilateral lens repair. The paranasal sinuses, mastoid air cells, and middle ear cavities are clear. IMPRESSION: No acute intracranial abnormality. ACT 112: Negative or not required by law. The above report was generated using voice recognition software. It may contain grammatical, syntax or spelling errors. Electronically signed by: Galindo Gifford M.D. 10/31/2022 2:34 PM Head CTA 10/31/22 14:34 CT angio head w con CLINICAL HISTORY: 67 years-old Female with CVA-eval, rt sided numbness, slurred speech,. Acute stroke like symptoms COMPARISON STUDY: Head CT of same day TECHNIQUE: Following the IV administration of 115 cc of Optiray, CT angiogram of the brain was performed from the skull base to the vertex. Images are reviewed in the axial, sagittal, and coronal planes. 3-D MIPS images are created and assessed. IV contrast was administered without complication. All measurements were obtained according to NASCET criteria. A dose lowering technique was utilized adhering to the principles of ALARA. CT DOSE: 526.61 mGy.cm FINDINGS: CT ANGIOGRAM OF THE BRAIN: Motion degraded exam. Atherosclerosis. The imaged bilateral internal carotid arteries are patent. The bilateral anterior and middle cerebral arteries are also patent. The vertebrobasilar system and posterior cerebral arteries are widely patent. There is no aneurysm, high-grade stenosis, or proximal branch occlusion identified. Dural sinuses appear patent. IMPRESSION: Motion degraded exam. No aneurysm, dissection, high-grade stenosis or arterial occlusion identified. ACT 112: Negative or not required by law. The above report was generated using voice recognition software. It may contain grammatical, syntax or spelling errors. Electronically signed by: Galindo Gifford M.D. 10/31/2022 3:26 PM Neck CTA 10/31/22 14:34 CT angio neck with con CLINICAL HISTORY: CVA-eval, right sided numbness, slurred speech TECHNIQUE: CT angiography of the neck was performed following intravenous administration of iodinated contrast. Coronal and sagittal MIPS were obtained from the axial data set and were submitted for review. Automated dose lowering techniques and/or adjustment according to patient size were utilized for this examination. All measurements were calculated based on NASCET criteria. Comparison: Comparison is made to CT cervical spine 08/27/2015 FINDINGS: Lungs and soft tissues are unremarkable. CTA Neck: A 3 vessel aortic arch is shown. There is no significant atherosclerotic plaque in the aortic arch or the origins of the innominate, left common carotid, and left subclavian arteries. The common carotid, external carotid, cervical segments of the internal carotid arteries, and the cervical segments of the vertebral arteries are patent without hemodynamically significant stenosis. The vertebral arteries are codominant. IMPRESSION: No occlusion, hemodynamically significant stenosis, or dissection in the major cervical arteries. Assessment of stenosis of the internal carotid arteries is based on NASCET criteria. ACT 112: Negative or not required by law. Electronically signed by: Jose Irwin M.D. 10/31/2022 3:41 PM Code Status & VTE Plan VTE Prophylaxis Plan VTE Prophylaxis will be ordered: Yes (2) Hypothyroid Hypothyroidism type: acquired Qualified Code(s): E03.9 - Hypothyroidism, unspecified (4) Type 2 diabetes mellitus Diabetes mellitus complication status: without complication Diabetes mellitus shelter insulin use: without assistant terminal manager use Qualified Code(s): E11.9 - Type 2 diabetes mellitus without complications (6) Dementia Dementia behavioral disturbance: without behavioral disturbance Dementia type: unspecified type Qualified Code(s): F03.90 - Unspecified dementia without behavioral disturbance
[2022-10-31] MEDS ORDERED: CARBOHYDRATES FOR HYPOGLYCEMIA PO PRN (20:15)
[2022-10-31] MEDS ORDERED: POLYETHYLENE (MIRALAX) 17 GM PACK PO PRN (20:15)
[2022-10-31] MEDS ORDERED: GLUCOSE 40% GEL 15 GM TUBE PO PRN (20:15)
[2022-10-31] MEDS ORDERED: DEXTROSE 50% 50 ML SYRINGE IV PRN (20:15)
[2022-10-31] MEDS ORDERED: GLUCOSE 10 TAB/TUBE PO PRN (20:15)
[2022-10-31] MEDS ORDERED: ACETAMINOPHEN 325 MG TAB PO PRN (20:15)
[2022-10-31] MEDS ORDERED: PHARMACIST DISCHARGE MED REC CONSULT PRN (20:15)
[2022-10-31] MEDS ORDERED: GLUCAGON FOR INJ 1 MG VIAL SQ PRN (20:15)
[2022-10-31] MEDS: MAGNESIUM SULFATE / D5W 1 GM/100 ML BAG IV SCH ×2 (20:40→22:10)
[2022-10-31] MEDS: buPROPion SR 150 MG TABCR PO SCH (20:48)
[2022-10-31] MEDS: GABAPENTIN 300 MG CAP PO SCH (20:48)
[2022-10-31] MEDS: INSULIN ASPART PER UNIT CHARGE SC SCH (20:51)
[2022-10-31] MEDS ORDERED: DOXEPIN HCL 10 MG CAPSULE PO SCH (21:00)
[2022-10-31] MEDS ORDERED: DONEPEZIL HCL 10 MG TAB PO SCH (21:00)
[2022-10-31] MEDS ORDERED: ATORVASTATIN 40 MG TAB PO SCH (21:00)
--- NOTE | 2022-10-31 21:15 | Magnetic Resonance Report ---
Exam(s): MRI HEAD Without Contrast EXAM: MR Head Without Intravenous Contrast CLINICAL HISTORY: Reason for exam: expressive aphasia, R body numbness. TECHNIQUE: Magnetic resonance images of the head/brain without intravenous contrast in multiple planes. COMPARISON: CT brain 10/31/2022. FINDINGS: Brain: Mild generalized brain atrophy. Small, scattered foci of T2 hyperintensity identified within the periventricular and subcortical white matter most compatible with mild microangiopathic white matter disease. No restricted diffusion abnormality to suggest acute stroke. No intracranial hemorrhage. Ventricles: Unremarkable. No ventriculomegaly. Bones/joints: Unremarkable. Sinuses: Unremarkable as visualized. No acute sinusitis. Mastoid air cells: Unremarkable as visualized. No mastoid effusion. Orbits: Unremarkable as visualized. IMPRESSION: 1. Mild involutional changes along with minor microangiopathic pulmonary disease. 2. No acute stroke or intracranial hemorrhage. No space-occupying lesion . Electronically signed by: Gwen Frias MD 10/31/22 21:14 PM
[2022-11-01 06:22] LABS: Hematocrit (blood only) 38.3 % (37.0-47.0); Hemoglobin 12.5 g/dl (12.0-16.0); Mean Corpuscular Hemoglobin 27.7 pg (25.0-34.0); Mean Corpuscular Hgb Conc 32.6 g/dL (32.0-36.0); Mean Corpuscular Volume 84.7 fL (80.0-100.0); Mean Platelet Volume 10.7 fL (9.4-12.4); Platelet Count 226 K/uL (130-400); RDW Coefficient of Variation 14.6 % (11.5-14.5); Red Blood Count 4.52 M/uL (4.20-5.40); White Blood Count 7.87 K/ul (4.8-10.8)
[2022-11-01] MEDS ORDERED: LEVOTHYROXINE SODIUM 100 MCG TABLET PO SCH (06:30)
[2022-11-01 06:32] LABS: Estimated Average Glucose 114 mg/dl; Hemoglobin A1C 5.6 % (4.5-5.6)
[2022-11-01 07:22] LABS: BUN Creatinine Ratio 14.1 (10-20); Calcium 8.9 mg/dl (8.6-10.3); Chol HDL Ratio 2.2 (0-5); Est GFR (African American) 89.9 ml/min; Est GFR (Non-African American) 77.6 ml/min; Potassium 3.9 mmol/L (3.5-5.1)
[2022-11-01] MEDS: GABAPENTIN 300 MG CAP PO SCH (08:40)
[2022-11-01] MEDS: buPROPion SR 150 MG TABCR PO SCH (08:40)
--- NOTE | 2022-11-01 08:49 | Neurology Consultation ---
Date of Consultation November 01, 2022 Assessment & Plan (1) Slurred speech: (2) Expressive aphasia: (3) Decreased sensation: (4) Twitching: (5) Mild cognitive impairment: Plan This patient had acute stroke-like symptoms October 31 consisting of slurred speech and expressive aphasia, blurry vision of her eyes to the right and right- sided sensory deficits. She was also having twitching which sounds mostly like myoclonic jerks. Today she is back to baseline with rare myoclonic jerks of her upper extremities. CT angiography shows no vascular stenoses an MRI of the brain shows no acute stroke. She does have some mild old small-vessel ischemic disease. She has risk factors for small-vessel ischemic disease including a history of hypertension, dyslipidemia, type 2 diabetes, and former cigarette smoker. Patient carries a diagnosis of dementia. 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 She has some mood issues which are improved on bupropion. On examination today she has no focal findings, meningeal signs, encephalopathy. Recommendations: 1. Awaiting echocardiogram results. 2. Continue with 81 mg aspirin tablet daily. I see no need for dual antiplat elet therapy in this patient 3. Given her lipid parameters I would not increase her atorvastatin. 4. Given her cognitive improvement I am not sure she needs to be on donepezil anymore and consider stopping this (at least as an outpatient). 5. I am not certain what 10 mg of doxepin is doing for this patient unless it helps her sleep. I would continue bupropion for her mood at this time. 6. Increase activity as able. There are no other recommendations for neurologic testing or treatment at this time. 7. We can follow-up as an outpatient in 3-4 weeks with the PA, if desired Overall, I spent a total of 75 minutes with this case including review of records, review of MRI films, direct evaluation the patient bedside, report generation, and discussion of the case with the patient and RN at bedside as well as Dr. Lee, including differential diagnosis and treatment options. History of Present Illness Reason for Consultation: Patient is a 67-year-old, who I was asked to see at the request of Dr. James, for neurologic consultation regarding stroke versus TIA Requesting Physician: Dr. James Attending Physician: Zaina Lee MD History of Present Illness I 1st saw this patient in August of 2018. At that time she would had an event of word-finding issues, slurred speech, blurry vision, and left facial droop. By the next day she was back to normal. MRI of the brain showed no new stroke but there was some mild old small-vessel ischemic disease. MR angiography of the head and neck were unremarkable. She was back to baseline and was discharged on 81 mg aspirin. She is not on any antiplatelet medication. The patient's past history is remarkable for hypertension, diabetes type 2, essential tremor and lumbar spinal stenosis with an S1 radiculopathy. She had 2 concussions in 2016 resulting in mild cognitive impairment, proved by neuropsychological testing twice. She is not been given the diagnosis of dementia by the neuropsychologists. It was felt to be cognitive impairment of a mild nature secondary to the concussions. Over time she improved and feels that her cognitive function is back to baseline. She remains on donepezil and doxepin. She has a history of anxiety and depression which is well controlled on bupropion. In July of 2021 she underwent L2-3 decompression with fusion by Dr. Jenkins which has helped her back and legs. She was noted as far back as 2015 to have a gait disturbance and low back pain with a left L5 radiculopathy creating footdrop and a polyneuropathy. Currently she is not have any back or leg problems. The patient awoke on October 31 around 0830 feeling slightly off with her balance but no other specific issues. Around 0930 she had increase in vertiginous feelings and balance problems. Her vision was blurry to the right. Her head felt foggy but she did not have any pain. She did note with walking to go lay down that she had balance problems and some vertiginous issues. Around 03/18/1999 she noted jerking of her hands which spread to her body in general. She describes what sounds like myoclonic jerks although she calls them muscle spasms. She arrived to the emergency room at 2:11 p.m. with a temperature 37.0, pulse 80 and regular, respiratory rate 18, blood pressure 106/65, O2 saturation 99%. She was felt to have significant slurred speech and word-finding difficulty with blurriness to the right side of her vision and decreased sensation on her right side. Motor strength was spared. She states that she was having jerks of her limbs all over at that time and the speech problem started on the car ride over to the emergency room. CBC and Chem profile were unremarkable. Glucose was 105. Although her magnesium was in the normal range at 1.8 she was given IV magnesium which she said resolve the myoclonic jerks of her limbs. By the time she got to the floor she felt she was back to baseline with no symptoms. Chest x-ray was unremarkable. CT scan of the head was. CT angiography of the head neck showed no vascular stenoses or anomalies. MRI of the brain showed no acute stroke but there was mild generalized atrophy and old small-vessel ischemic changes as before. I reviewed the MRI films. Today CBC and Chem profile unremarkable. Triglycerides were 113 and total cholesterol was 95. Hemoglobin A1c was 5.6 TSH was 0.48. Echocardiogram is pending Currently she feels her balance is off with walking but her speech, mentation, sensation, and strength are all normal/baseline. Allergies Allergy/AdvReac Type Severity Reaction Status Date / Time amantadine Allergy Intermediate GI UPSET Verified 10/31/22 17:12 doxycycline Allergy Intermediate GI UPSET Verified 10/31/22 17:12 Home Medications Medication Instructions Recorded Confirmed Type semaglutide 2 mg/dose (8 mg/3 mL) 2 mg (0.75 mL) subcut WK 30 days 01/15/22 10/31/22 Rx subcutaneous pen injector (Ozempic) #22.5 mL lansoprazole 30 mg capsule,delayed 30 mg PO DAILY #90 caps 02/02/22 10/31/22 Rx release bupropion HCl 150 mg tablet,12 hr 150 mg PO BID #180 ea 05/25/22 10/31/22 Rx sustained-release celecoxib 100 mg capsule (Celebrex) 100 mg PO BID #180 caps 05/25/22 10/31/22 Rx donepezil 10 mg tablet (Aricept) 10 mg PO HS #90 tabs 05/25/22 10/31/22 Rx levothyroxine 100 mcg tablet 100 mcg PO QAM #90 tabs 06/29/22 10/31/22 Rx (Synthroid) atorvastatin 20 mg tablet 20 mg PO QAM #90 tabs 08/28/22 10/31/22 Rx doxepin 10 mg capsule 10 mg PO PM insomnia #30 caps 10/29/22 10/31/22 Rx ferrous sulfate 325 mg (65 mg 325 mg PO DAILY 10/31/22 10/31/22 History iron) tablet (iron) gabapentin 300 mg capsule 300 mg PO BID 10/31/22 10/31/22 History Patient History Medical History Abdominal muscle defects AIVR (accelerated idioventricular rhythm) Benign essential tremor Cervical lymphadenopathy Chest pressure Concussion 2017 Dementia Depression hx DVT prophylaxis Fatigue Foot fracture, right GERD (gastroesophageal reflux disease) controlled, stable per pt Hyperlipidemia Hypothyroid Left foot drop Lumbar spinal stenosis Opiate dependence Other intervertebral disc degeneration, lumbar region Palpitations Paroxysmal atrial tachycardia Retinal tear of left eye with repair TIA (transient ischemic attack) >5 yrs, unsure when had, was found on CT scan per pt, pt can't recall details Transaminitis Type 2 diabetes mellitus NIDDM Surgical History H/O cataract extraction bilateral H/O resection of small bowel for SBO History of back surgery History of section x2 History of colonoscopy Status post left partial knee replacement Status post right partial knee replacement [place] teeth extracted Family History Mother , age 79 of heart issues Coronary heart disease stents Mood disorder Father , age 49 of brain cancer Brain cancer Brother Throat cancer S/p nephrectomy for RCC Brother Myocardial infarction Denies family history of Ovarian cancer Prostate cancer Colorectal cancer Social History (Updated 11/01/22 @ 08:39 by Hunter Mccartney MD) Smoking Status: Former smoker Tobacco Type: Cigarettes Age Started Using Tobacco: 39; Age Quit Using Tobacco: 53; packs per day: 0.5; Cigarettes Per Day: 10; Second Hand Exposure: No; Do You Dip or Chew Tobacco: No; Hx Alcohol Use: Yes Alcohol type: beer Alcohol Intake Frequency: 4 or More x per/Week Hx Substance Use: No Preferred Language: [place] Citizen Communication Ability: Effective Visual Impairment: No Limitations Hearing Ability: Normal Load Planner Required: No Beliefs That Will Affect Care: None marital status: Current Living Situation: Spouse Current Living Situation Comment: Home with Spouse current occupational status: retired 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 Feels Safe at Home: Yes Childhood Exposure to Second-Hand Smoke: No Diet: regular Diet Comment: regular caffeine: Yes during the past year weight has: remained stable Dental Care, Regularly: Yes Physical Activity Frequency: 3-4 Times per Week Seatbelt Use: always Sunscreen Use: Yes Assistive Devices: None Review of Systems Constitutional: no fever, no fatigue and no weakness Eyes: no diplopia, no eye pain and no worsening vision Ear, Nose, Mouth, Throat: no ear pain, no tinnitus, no hearing loss, no dizziness, no snoring, no hoarseness and no dysphagia Respiratory: no cough and no dyspnea Cardiovascular: no chest pain, no palpitations and no lightheadedness Gastrointestinal: no abdominal pain, no nausea and no vomiting Genitourinary: no dysuria, no urinary frequency and no urinary incontinence Musculoskeletal: no back pain, no neck pain, no radicular pain, no joint pain and no myalgia Integumentary: no rash and no lesions Neurologic: + gait abnormality and + dizziness; no localized weakness, no generalized weakness, no tingling, no numbness, no tremor(s), no abnormal movements, no headache(s), no abnormal speech, no confusion and no memory loss Psychiatric: no depression, no irritability, no anxiety, no difficulty concentrating, no confusion and no hallucinations Endocrine: no fatigue and no flushing Hematologic / Lymphatic: no easy bleeding and no easy bruising Allergy / Immunological: no urticaria and no problem reported Exam (Neuro) Physical Exam: The patient is left-handed. The patient is awake, alert, and attentive. Speech is normal without any aphasia or dysarthria. The patient can name objects, repeat phrases, and has normal spontaneous speech. Mentation and thought processes are intact, with orientation to person, place and time, and normal fund of knowledge. Attention and concentration are normal. Mood and affect are normal and appropriate. General appearance and grooming are normal. Short and long-term memory are intact. Pupils are 4 mm bilaterally and reactive to light. Extraocular eye muscles are intact without nystagmus. Visual acuity and visual kohler seem normal grossly to confrontation. There are no deficits to sensation in the face in all 3 distributions of the fifth cranial nerve bilaterally. Corneal reflexes are positive bilaterally. Facial strength and symmetry was normal bilaterally. Hearing seems normal bilaterally. Palate moves well without asymmetry. There is normal sternocleidomastoid and trapezius (shoulder shrug) strength bilaterally. Tongue is midline with good strength bilaterally. Neck has a full range of motion without discomfort. There are no cervical bruits bilaterally. There are no cranial or ocular bruits. Heart is without murmur. There is a regular rhythm and rate. Cervical, thoracic, and lumbar spine are nontender to palpation. Gait is narrow based but cautious. She feels slightly vertiginous but not lightheaded. Stance with feet together and eyes open is stable with eyes closed she sways. With outstretched arms there is no drift. There are no resting tremors. There is no ataxia with finger to nose testing. There is mild postural and action tremor bilaterally with [id number] testing. There is no head tremor. There is good facility in the hands. I note some rare single myoclonic jerk like movements of the upper extremities 1 side or the other. 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 Motor strength is 5/5 diffusely in the legs bilaterally including hip flexors, quadriceps, hamstrings, gastrocnemius, tibialis anterior, tibialis posterior, and Peroneii muscles. Toe extensors are normal and there is good bulk in the extensor digitorum brevis muscles bilaterally. The limbs have good tone without rigidity or spasticity. There is no atrophy noted in the muscles. Muscle bulk is normal, there is no tenderness to palpation, no myotonia to percussion, and no fasciculations seen. Sensory examination is intact to touch and pin throughout all 4 limbs diffusely. Reflexes are 1/4 in the biceps, triceps, brachioradialis, quadriceps, and Ach illes tendons bilaterally. There is no clonus bilaterally. Toes are downgoing with plantar stimulation bilaterally. Peripheral pulses are present and of normal quality distally in all 4 limbs. The re is no peripheral edema noted in the limbs. Results & Data Vital Signs (Past 12 Hours) Vital Signs Temp Pulse Pulse Resp BP BP Pulse Ox 11/01/22 07:39 68 11/01/22 07:24 36.6 C 72 17 115/74 93 08/17/23 04:23 37.0 C 70 20 108/70 93 10/31/22 23:05 36.9 C 68 16 104/61 92 10/31/22 20:59 37.3 C 72 16 126/84 95 O2 Del Method 11/01/22 07:39 11/01/22 07:24 Room Air 11/01/22 04:23 Room Air 10/31/22 23:05 Room Air 10/31/22 20:59 Room Air PG Care Time/CCT Total # of Minutes Spent Total Time Spent with Patient: Total time spent is greater than 50% in coordination of care (as documented) at patient's floor/unit and/or counseling patient: Coding Level of Care Code 39672 INT INP/OBS CARE 3/75MIN Diagnoses Slurred speech R47.81 Expressive aphasia R47.01 Decreased sensation R20.8 Twitching R25.3 Mild cognitive impairment G31.84 Time Spent (min) 75
[2022-11-01] MEDS: INSULIN ASPART PER UNIT CHARGE SC SCH ×2 (08:50→11:33)
[2022-11-01] MEDS ORDERED: CLOPIDOGREL BISULFATE 75 MG TAB PO SCH (09:00)
[2022-11-01] MEDS ORDERED: PANTOprazole 40 MG TAB PO SCH (09:00)
[2022-11-01] MEDS ORDERED: ASPIRIN 81 MG ECTAB PO SCH (09:00)
--- NOTE | 2022-11-01 10:52 | Discharge Summary ---
Discharge Summary Date of Service November 01, 2022 Notes For Next Care Provider cont to wean off doxepin slowly Medication Changes From Visit STOP Donepezil STOP Doxepin Admission HPI Per Admitting Provider 67 yo diabetic female presents with dizziness, slurred speech, blurred vision in the right eye, and decreased sensation on the right that began around 0930. She presents to the ER approximately 5 hours after symptoms began so thrombolytic was not considered. No history of atrial fibrillation per medical record review. felt like "when you stand up too fast and it wouldn't go away" laid down for 2 hours, then got up again and it got really bad-felt much worse twitching started in her fingers and travelled up and into her shoulders, then legs were affected with twitching. (she is still intermittently twitching but this is improved after Ativan in the ER) developed expressive aphasia around 1100. Now speech improved. Head "feels like having a bunch of marbles in a washing machine", and that is starting to clear up twitching is "exhausting " chronic right eye "fogginess with sliders" but no acute changes, there is left upper eyelid ptosis and she says this has been ongoing and was scheduled to see her eye doctor. Both sides, fingertips and feet are tingling which is new, denies "numbness" [place] well yesterday No changes in medicines. Nonsmoker, quit 2009 Two beers last night, but not heavy drinker per her report. 1 cup coffee daily no changes in medications, except stopping metformin 1 month ago for low A1C Principal Dx & Hospital Course #1 = Principal Diagnosis (1) Stroke-like symptoms: (2) Twitching: (3) Mild cognitive impairment: Plan 67 yo well controlled diabetic female with dizziness, slurred speech, expressive aphasia, blurry vision in the right eye and decreased sensation on the right side lasting approximately 5 hours. She presented after the therapeutic window for thrombolytics and, therefore, a stroke alert was not pursued. She mentioned some ongoing issues with sliders/floaters in her left eye for which she has an upcoming appointment with an credit operations specialist. She was admitted to medicine and monitored on telemetry with no arrhythmias noted overnight. She was experiencing twitching that improved with Ativan and resolved overnight. Mg was 1.8 and she was administered two grams of intravenous magnesium. CT head was negative for acute intracranial abnormality and CTA head and neck was unremarkable. Brain MRI revealed no evidence of stroke or intracranial hemorrhage and no space-occupying lesions. Per neurology consult, chronic microvascular disease was noted on the MRI. She also has a history of hypertension, dyslipidemia, type 2 diabetes and is a former cigarette smoker. Although she carries a diagnosis of dementia, this was felt to be inaccurate based on prior records revealing mild cognitive inhibition on neuropsychological testing instead. Donepezil is not recommended and will be stopped. She has some mood symptoms that are well controlled on bupropion. Doxepin is an older drug with many side effects including visual changes and dizziness. She still reports intermittent dizziness with standing. Orthostatics were checked and negative. 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 Doxepin will be weaned off slowly with every other day dosing for two weeks, then stop. She may experience withdrawal side effects and require a longer withdrawal over several months. Defer followup on this to primary care physician. DAPT not recommended and she will be continued on ASA 81mg daily. Atorvastatin remains at 20mg daily per neurology recommendations. She may followup with Neurology as needed if any symptoms return. Echo reveals no evidence of PFO or ASD and no interatrial shunt was demonstrated with the injection of agitated saline contrast. Discharge Exam mentating and ambulating at baseline. declines neurologic examination PERRL, CN 2-12 grossly intact with left eye ptosis improved. Twitching has resolved Tolerating PO Hemodynamically stable and afebrile. Updated Medication List Medication Instructions Recorded Confirmed Type semaglutide 2 mg/dose (8 mg/3 mL) 2 mg (0.75 mL) subcut WK 30 days 01/15/22 10/31/22 Rx subcutaneous pen injector (Ozempic) #22.5 mL lansoprazole 30 mg capsule,delayed 30 mg PO DAILY #90 caps 02/02/22 10/31/22 Rx release bupropion HCl 150 mg tablet,12 hr 150 mg PO BID #180 ea 05/25/22 10/31/22 Rx sustained-release celecoxib 100 mg capsule (Celebrex) 100 mg PO BID #180 caps 05/25/22 10/31/22 Rx donepezil 10 mg tablet (Aricept) 10 mg PO HS #90 tabs 05/25/22 10/31/22 Rx levothyroxine 100 mcg tablet 100 mcg PO QAM #90 tabs 06/29/22 10/31/22 Rx (Synthroid) atorvastatin 20 mg tablet 20 mg PO QAM #90 tabs 08/28/22 10/31/22 Rx doxepin 10 mg capsule 10 mg PO PM insomnia #30 caps 10/29/22 10/31/22 Rx ferrous sulfate 325 mg (65 mg 325 mg PO DAILY 10/31/22 10/31/22 History iron) tablet (iron) gabapentin 300 mg capsule 300 mg PO BID 10/31/22 10/31/22 History aspirin 81 mg tablet,delayed 81 mg PO QAM #90 tabs 11/01/22 Rx release Hospital Stay Data Consultations 10/31/22 16:21 ED Decision to Admit Stat 10/31/22 20:15 Consult Neurology Routine Diagnostic Imagining Performed 10/31/22 14:10 CT head/brain wo con Stat 10/31/22 14:34 CT angio head w con Stat CT angio neck with con Stat 10/31/22 16:57 MR brain wo con Urgent Discharge Instructions Given to Patient (Per Discharging Provider) Please take all medications as instructed on discharge list below. Please stop the donepezil. Please start taking the doxepin every other day and see how you feel. Then continue the taper per instruction from your primary care physician based on how you feel. If withdrawal symptoms occur, please resume prior dose you were on. Ultimately, this should be stopped within 2-3 months to limit possible side effects. Please follow-up [facility] Mackenzie Reich PA-C in one week to ensure you are doing well after returning home. Also, this will be important to assess if you have any need to follow-up with Neurology, and will help to guide your slow discontinuation of doxepin. It was a pleasure taking care of you! Please call if you have any questions or problems. You can reach a [facility] hospitalist on duty at [facility] 24 hours a day by calling [phone]. Take care of yourself. Marion James DO [facility] Hospitalist Total Time Total Time Spent Total Time Spent (In Minutes): 60
[2022-11-01] MEDS ORDERED: STROKE PATIENT DISCHARGE STA (11:10)
--- NOTE | 2022-11-01 11:25 | Communication Note ---
Date of Service: November 01, 2022 By CMS guidelines, a determination that the admission or continued stay is not medically necessary has been made by a member of the UR committee and a phy sician for this hospital stay, therefore a Code 44 will be completed and the Inpatient admission will be changed to outpatient. Clive Giang MD member, Utilization Review Committee
== END 2022-11-01 13:35 | disposition home or self-care (01) ==
LOC: ED 14:01 → 4W 16:45 → SUATTDRO 16:45 → INTOOBSV 16:45 → 4W 18:49